=== PATIENT | male | born 1955 | race Caucasian/White ===

== ENCOUNTER 2020-04-08 07:47 | Outpatient (CLI) | payer MEDICARE, SELFPAY ==
--- NOTE | 2020-04-08 | ECHO_ITS ---
Patient Info Name: Ad Eisenberg Age: 64 years : 1955 Gender: Male Ht: 70 in Wt: 180 lbs BSA: 2.02 m2 HR: 120 bpm BP: 152 / 92 mmHg Heart Rhythm: Tachycardia Technical Quality: Good Exam Date: 04/08/2020 8:26 AM Exam Location: [facility] Patient Status: Outpatient Admit Date: 04/08/2020 Staff Ordering Physician: Patricio, Gaby CABALLERO Studio Potter: Liborio Bautista RDCS, RT Attending Provider: Patricio, Gaby CABALLERO Referring Physician: Patricio PALACIO; Exam Type: CA echo doppler color flow Study Info Indications I47.2 - Ventricular tachycardia Complete two-dimensional, color flow and Doppler transthoracic echocardiogram is performed. Strain analysis performed. Summary 1. Technically difficult study with limited views. Regional wall motion assessment limited due to poor endomyocardial border definition in several views. Consider repeat study with definity contrast enhancement. 2. Left ventricular systolic function is moderately reduced, estimated at 35-40%. 3. There is mildly increased left ventricular wall thickness. 4. Hypokinesis of the apical lateral wall. 5. The left ventricular diastolic function is indeterminate. 6. Unable to estimate PA systolic pressure due to poor spectral resolution of tricuspid regurgitant jet velocity. Left Ventricle Left ventricular chamber dimension is normal. Left ventricular systolic function is moderately reduced, estimated at 35-40%. There is mildly increased left ventricular wall thickness. The left ventricular diastolic function is indeterminate. Global longitudinal strain is moderately elevated at -10 %. Hypokinesis of the apical lateral wall. Right Ventricle Right ventricular chamber dimension is normal. Right ventricular systolic function is normal. Left Atria Left atrial chamber dimension is normal. Right Atria Right atrial chamber dimension is normal. Aortic Valve The aortic valve is not well visualized. There is no aortic valve stenosis. There is no aortic valve regurgitation. Pulmonic Valve The pulmonic valve is not well visualized. Mitral Valve The mitral valve has normal leaflets. There is trace mitral valve regurgitation. Tricuspid Valve The tricuspid valve leaflets are not well visualized. There is trace tricuspid valve regurgitation. Unable to estimate PA systolic pressure due to poor spectral resolution of tricuspid regurgitant jet velocity. Pericardium/Pleural The pericardium appears normal. There is no pericardial effusion. Inferior Vena Cava Normal inferior vena cava with >50% collapse upon inspiration consistent with normal right atrial pressure, 5 mmHg. Aorta The aortic root size at the sinus of Valsalva is normal. Left Ventricular Outflow Tract Name Value Normal LVOT 2D LVOT Diameter 2.4 cm LVOT Doppler LVOT Peak Gradient 3 mmHg LVOT Mean Gradient 2 mmHg LVOT VTI 14 cm LVOT VTI/AV VTI Ratio 0.9 LVOT Stroke Volume 64 ml
== END 2020-04-08 07:48 | disposition home or self-care (01) ==
PROVIDERS: PCP Nurse Practitioner Family; Visit Provider Nurse Practitioner Family
DX: R00.0 Tachycardia, unspecified (principal)
CPT/HCPCS: 93306

== ENCOUNTER 2022-04-19 00:56 | Day surgery (SDC) | payer MEDICARE, SELFPAY ==
[2022-04-04 15:02] VITALS: BMI 26.5
[2022-04-19 08:08] VITALS: BP 149/74; PULSE 113; RESP 20; TEMP 36; O2SAT 93; BMI 26.1
[2022-04-19] MEDS: LACTATED RINGERS 1,000 ML 150 ML IV CONT (08:24)
--- NOTE | 2022-04-19 08:34 | WPDANESEPPF ---
Anes - Initial Pre Proc Eval Procedure: Operation Date: 04/19/22 09:15 Proposed Procedures p Esophagogastroduodenoscopy - Jeffrey Dowell MD Date/Time: 04/19/22 08:34 Surgeon: Jeffrey Dowell MD Pre Op Diagnosis: abnormal CT scan Patient Data Age: 66 Gender: M Height: 1.78 m Weight: 82.6 kg Last Vital Signs Temp 36.0 C L 04/19/22 08:08 Pulse 113 H 04/19/22 08:08 Resp 20 04/19/22 08:08 BP 149/74 H 04/19/22 08:08 Pulse Ox 93 04/19/22 08:08 O2 Del Method Room Air 04/19/22 08:08 Allergies Allergy/AdvReac Type Severity Reaction Status Date / Time No Known Allergies Allergy Unknown Verified 04/19/22 08:13 Home Medications Medication Instructions Recorded Confirmed Type aspirin 81 mg capsule 81 mg PO DAILY 03/24/22 04/19/22 History budesonide-formoterol HFA 80 2 puff inhalation Q12H 03/24/22 04/19/22 History mcg-4.5 mcg/actuation aerosol inhaler (Symbicort) carvedilol 6.25 mg tablet 6.25 mg PO Q12H 03/24/22 04/19/22 History furosemide 20 mg tablet 20 mg PO QAM 03/24/22 04/19/22 History lisinopril 10 mg tablet 10 mg PO DAILY 03/24/22 04/19/22 History rosuvastatin 20 mg tablet 20 mg PO DAILY 03/24/22 04/19/22 History albuterol sulfate 90 mcg/actuation 1 puff inhalation Q6H PRN 04/04/22 04/19/22 History aerosol inhaler Shortness Of Breath tiotropium bromide 2.5 1 inh inhalation DAILY 04/04/22 04/19/22 History mcg/actuation mist for inhalation (Spiriva Respimat) Patient hx anesthesia problems: none Family hx anesthesia problems: none Results Review: All pre-operative results and documents have been reviewed as part of the pre-operative evaluation. [facility] Past Medical History Medical History Bile duct abnormality Colon cancer screening COPD (chronic obstructive pulmonary disease) Coronary artery disease Stroke Tobacco dependence Social History Social History Smoking packs per day: 1 Smoking cigarettes per day: 20.0 Years smoked: 50 Smoking pack-years: 50.00 Smoking status: Current every day smoker Tobacco type: cigarettes Alcohol intake: never Substance use: never Substance use type: does not use Living arrangements: with family Spiritual care concerns: No Anes - Eval Final PreProcedure Day of Procedure 04/19/22 08:34 Patient weight: overweight Heart: regular rate and rhythm Lungs: decreased breath sounds and wheezes Airway: Mallampati scale class II Neurological: alert and oriented Last oral intake: >/= 8 hours ASA classification: IV Emergent: no Anesthetic plan: proceed Anesthesia type and monitoring: general GIVS and standard monitoring Results Review: All pre-operative results and documents have been reviewed as part of the pre-operative evaluation. Informed Consent: The patient's anesthetic plan and its attendant risks and benefits were discussed with the patient/family/POA. Questions were solicited and answers provided to the satisfaction of the patient/family/POA.
--- NOTE | 2022-04-19 09:33 | WPDHPUPDATE1 ---
History and Physical Update Update Date/Time: 04/19/22 09:33 History and Physical has been reviewed, including an updated exam of the patient. There are NO changes in the patient's condition. Risks, benefits, and alternatives have been discussed and questions answered. Patient agrees to proceed with procedure.
[2022-04-19 09:54] VITALS: BP 121/75; PULSE 94; RESP 18; O2SAT 94
[2022-04-19 10:04] VITALS: BP 138/91; PULSE 91; RESP 19; O2SAT 94
[2022-04-19 10:14] VITALS: BP 142/82; PULSE 90; RESP 15; O2SAT 95
== END 2022-04-19 10:23 | disposition home or self-care (01) ==
PROVIDERS: PCP Nurse Practitioner Family; Visit Provider Internal Medicine Gastroenterology
PROC: 0DJ08ZZ Inspection of Upper Intestinal Tract, Via Natural or Artificial Opening Endoscopic (ICD-10-PCS; CPT 43235; principal; 2022-04-19 09:15)
DX: K29.70 Gastritis, unspecified, without bleeding (principal); J44.9 Chronic obstructive pulmonary disease, unspecified; I25.10 Atherosclerotic heart disease of native coronary artery without angina pectoris; Z86.73 Personal history of transient ischemic attack (TIA), and cerebral infarction without residual deficits; F17.210 Nicotine dependence, cigarettes, uncomplicated; Z79.82 Long term (current) use of aspirin; Z79.51 Long term (current) use of inhaled steroids
CPT/HCPCS: 43239; 88305; J2704; J7120

== ENCOUNTER 2022-08-30 08:52 | Inpatient (IN) | payer MEDICARE, SELFPAY ==
[2022-08-30] VITALS (29 sets, daily range): BP systolic 104–181; BP diastolic 54–82; PULSE 102–132; RESP 13–27; TEMP 36.8–37.5; O2SAT 91–100
--- NOTE | ~2022-08-30 | XR_ITS ---
EXAMINATION: XR chest 1V portable INDICATION: Hypoxia TECHNIQUE: Portable AP chest at 1214 hours COMPARISON: 03/21/2016; CT, 08/30/2022 FINDINGS: There is moderate emphysema. There are minimal airspace opacities of the lung bases. No ple ural effusion or pneumothorax. The cardiomediastinal silhouette is normal. The nasogastric tube is fo llowed as far as the stomach. Its tip is beyond the inferior margin of the radiograph. IMPRESSION: 1. Minimal bibasilar airspace opacity, consistent with atelectasis versus pneumonia. 2. Emphysema. Reviewed, dictated and finalized at location B. IMPRESSION: 1. Minimal bibasilar airspace opacity, consistent with atelectasis versus pneum onia. 2. Emphysema.
--- NOTE | ~2022-08-30 | XR_ITS ---
EXAMINATION: XR chest 1V portable INDICATION: Hypoxia TECHNIQUE: Portable AP chest at 0831 hours COMPARISON: 09/02/2022 FINDINGS: There is moderate emphysema. The nasogastric tube is partially withdrawn. Its tip is just b eyond the gastroesophageal junction. Bibasilar airspace opacities persist with slight increase. There are small pleural effusions. There is no pneumothorax. The cardiomediastinal silhouette is normal. IMPRESSION: 1. Bibasilar airspace opacities with slight increase, consistent with atelectasis versus pneumonia. 2. Small pleural effusions. 3. Partially retracted nasogastric tube with its tip just beyond the gastroesophageal junction. Tube could be safely advanced 8 to 10 cm which is recommended. Reviewed, dictated and finalized at location A. IMPRESSION: 1. Bibasilar airspace opacities with slight increase, consistent with atelectas is versus pneumonia. 2. Small pleural effusions. 3. Partially retracted nasogastric tube with its tip just beyond the gastroesop hageal junction. Tube could be safely advanced 8 to 10 cm which is recommended.
--- NOTE | ~2022-08-30 | XR_ITS ---
Supine and upright views of the abdomen Clinical history: Nausea and vomiting Findings: Multiple air distended small bowel loops are present, suspicious for at least partial small bowel obstruction. No free air evident. No abnormal mass lesion or calcification is seen. Osseous st ructures are intact. Impression: Findings suspicious for small bowel obstruction. Reviewed, dictated and finalized at [facility]. Impression: Findings suspicious for small bowel obstruction.
--- NOTE | ~2022-08-30 | XR_ITS ---
EXAMINATION: XR abdomen NG/feed tube insert INDICATION: Nasogastric tube insertion TECHNIQUE: Portable AP KUB-NG at 1212 hours COMPARISON: 0951 hours FINDINGS: The nasogastric tube is in the stomach. Again seen are multiple dilated loops of small hal l. There are minimal airspace opacities of the lung bases, consistent with atelectasis versus pneumon ia. IMPRESSION: 1. Nasogastric tube in the stomach. 2. Persistently dilated small bowel, consistent with ileus versus bowel obstruction. Reviewed, dictated and finalized at location B. IMPRESSION: 1. Nasogastric tube in the stomach. 2. Persistently dilated small bowel, consistent with ileus versus bowel obstruc tion.
--- NOTE | ~2022-08-30 | CT_ITS ---
EXAMINATION: CTA chest PE abdomen pel DATE: 08/30/2022 09:54 INDICATION: Shortness of breath and lower abdominal pain TECHNIQUE: Computed tomography angiography (CTA) of the chest was performed with 100 mL Omnipaque-350 intravenous contrast timed to evaluate the pulmonary arteries. Subsequent postcontrast images of the abdomen and pelvis are obtained. Coronal maximum intensity projection 3D-reconstructions were create d by the technologist. The dose-length product (DLP) was 1062.33 mGy-cm. Automated exposure control a nd iterative reconstruction technique were employed. COMPARISON: None. FINDINGS: CTA CHEST: The pulmonary arteries are well-opacified. No pulmonary embolism is identified. There is m oderate emphysema. The lungs are free of acute opacities. No pleural effusion or pneumothorax. There is mucous in the trachea. No pathologically enlarged thoracic lymph nodes are identified. The heart s ize is normal. There is calcified coronary artery atherosclerosis. There is mild thoracic spondylosis . There appears to be a small penetrating ulcer posteriorly in the distal descending thoracic aorta. ABDOMEN/PELVIS CT: Punctate calcifications in an otherwise normal spleen likely represent healed gran ulomatous disease. The liver, pancreas, gallbladder, and adrenal glands are normal. Cysts of the righ t kidney measure up to 5.9 cm. The left kidney is unremarkable. The dilated appendix measures up to 8 mm. There is an appendicolith in the base of the appendix. There is edematous stranding of the peria ppendiceal fat. A small amount of fluid surrounds the appendix. There is no evidence of perforation o r rim-enhancing periappendiceal fluid collection. Colonic diverticulosis is present without evidence of diverticulitis. IMPRESSION: 1. Acute appendicitis. 2. No pulmonary embolus. 3. Emphysema. 4. Possible penetrating ulcer posteriorly in the distal descending thoracic aorta. Reviewed, dictated and finalized at location L. IMPRESSION: 1. Acute appendicitis. 2. No pulmonary embolus. 3. Emphysema. 4. Possible penetrating ulcer posteriorly in the distal descending thoracic aor ta.
--- NOTE | 2022-08-30 09:10 | ECG_ITS ---
Measurements Intervals [place] Rate: 127 P: 70 CA: 153 QRS: 73 QRSD: 108 T: 65 QT: 272 QTc: 395 Interpretive Statements SINUS TACHYCARDIA LOW QRS VOLTAGE IN EXTREMITY LEADS [QRS DEFLECTION < 0.5 mV IN LIMB LEADS] ABNORMAL RHYTHM ECG NO PREVIOUS ECG AVAILABLE FOR COMPARISON Electronically Signed On 08-30-2022 13:55:25 CDT by Jeison Villalobos M.D.
--- NOTE | 2022-08-30 09:18 | ED.GENADULT ---
HPI - General Adult General Chief complaint: Abdominal Pain Stated complaint: ABD PAIN X DAYS Time Seen by Provider: 08/30/22 09:03 History of Present Illness HPI narrative: Ad Eisenberg is a 67 y/o male with a PMHx of COPD and CAD who presents today with reports of lower abdominal pain that started about 3 days ago. He reports he hasn't had a normal BM in about 4 days. Denies nausea/vomiting. He states that his pain became worse at around 0100 today. Denies fever/chills. Reports of some Shortness of breath but states it could be related to his COPD. He reports that he has been dribbling urine and feels like this is different from how he usually urinates. Denies chest pain. Location: abdomen Related Data Home Medications Medication Instructions Recorded Confirmed aspirin 81 mg capsule 81 mg PO DAILY 03/24/22 08/30/22 budesonide-formoterol HFA 80 2 puff inhalation Q12H 03/24/22 08/30/22 mcg-4.5 mcg/actuation aerosol inhaler (Symbicort) carvedilol 6.25 mg tablet 6.25 mg PO Q12H 03/24/22 08/30/22 furosemide 20 mg tablet 20 mg PO QAM 03/24/22 08/30/22 lisinopril 10 mg tablet 10 mg PO DAILY 03/24/22 08/30/22 rosuvastatin 20 mg tablet 20 mg PO DAILY 03/24/22 08/30/22 albuterol sulfate 90 mcg/actuation 1 puff inhalation Q6H PRN 04/04/22 08/30/22 aerosol inhaler Shortness Of Breath tiotropium bromide 2.5 1 inh inhalation DAILY 04/04/22 08/30/22 mcg/actuation mist for inhalation (Spiriva Respimat) Allergies Allergy/AdvReac Type Severity Reaction Status Date / Time No Known Allergies Allergy Unknown Verified 08/30/22 09:02 Review of Systems Review of Systems: CONSTITUTIONAL: Denies fever, chills, or sweats. EYES: Denies visual changes, redness, or discharge. ENT: Denies rhinorrhea, congestion, sore throat, or otalgia. CARDIOVASCULAR: Denies chest pain, palpitations, or edema. RESPIRATORY: Denies cough reports feeling short of breath GASTROINTESTINAL: Complains of lower abdominal pain for 3 days that became worse today at 0100, last normal BM was about 4 days ago, denies nausea vomiting GENITOURINARY: Denies dysuria or hematuria, reports he's been dribbling urine but that seems different SKIN: Denies rash or itching. MUSCULOSKELETAL: Denies back pain, joint pain, or myalgia. NEUROLOGIC: Denies headache, numbness, dizziness, or weakness. PSYCHIATRIC: Denies anxiety or depression. PMFSH Past Medical History Medical History Bile duct abnormality Colon cancer screening COPD (chronic obstructive pulmonary disease) Coronary artery disease Stroke Tobacco dependence Surgical History Surgical History H/O shoulder surgery Family History Family History Other No family history of disorders Social History Social History Smoking packs per day: 1 Smoking cigarettes per day: 20.0 Years smoked: 54 Smoking pack-years: 54.00 Smoking status: Current every day smoker Tobacco type: cigarettes Second hand tobacco smoke exposure: No Alcohol intake: never Substance use: never Substance use type: does not use Lack of Transportation: No Lack of Food: Never True Current Housing: I Have Housing Concerned About Future Housing: No Difficulty Paying Gas/Electric Bills: No Difficulty Paying for Meds: No Currently Unemployed: No Education: Trade/Vocational Certificate Difficulty w/ Childcare or Family Care: No Living arrangements: with family Spiritual care concerns: No Exam Narrative: GENERAL: Well-appearing, well-nourished, and in no acute distress. HEAD: Normocephalic, atraumatic. EYES: PERRLA and EOMI. ENT: Nares clear, no rhinorrhea or epistaxis. Mucous membranes moist. Oropharynx without tonsillar hypertrophy exudate or other lesions. NEC
[2022-08-30 09:22] LABS: Basophils Absolute Auto 0.1 K/mm3 (0.0-0.1); Basophils Percent Auto 0.4 % (0.2-1.2); Eosinophils Absolute Auto 0.1 K/mm3 (0-0.3); Eosinophils Percent Auto 0.5 % (0-4.4); Hemoglobin 15.2 g/dL (14.0-18.0); Immature Granulocyte Absolute 0.05 K/mm3 (0.00-0.031); Immature Granulocyte Percent A 0.4 % (0-0.5); Lymphocytes Absolute Auto 1.41 K/mm3 (0.9-3.2); Lymphocytes Percent Auto 11.9 % (18.3-44.2); Mean Corpuscular HGB Conc 32.3 g/dl (32-36); Mean Corpuscular Hemoglobin 30.4 pg (26-34); Mean Platelet Volume 9.9 fl (7.4-10.4); Monocytes Absolute Auto 0.9 K/mm3 (0.1-0.6); Monocytes Percent Auto 7.8 % (2.6-8.5); Neutrophils Absolute Auto 9.4 K/mm3 (1.3-6.7); Platelet Count Result 178 k/mm3 (150-375); Red Cell Distribution Width 14.4 % (11.5-14.5); White Blood Count 11.9 K/mm3 (4.5-10.0)
[2022-08-30] MEDS: IPRATROPIUM BR 0.02% INH SOLN 0.5 MG/2.5 ML VIAL INHALATION (09:25)
[2022-08-30] MEDS: ALBUTEROL SULFATE NEB 2.5 MG/3 ML INH INHALATION ×2 (09:25→15:04)
[2022-08-30 09:32] LABS: Alanine Aminotransferase 26 U/L (6-50); Albumin Level 4.3 g/dL (3.5-5.1); Alkaline Phosphatase 78 U/L (38-126); Anion Gap 6 mmol/L (8-16); Aspartate Amino Transferase 24 U/L (17-59); Bilirubin,Total 0.8 mg/dL (0.2-1.3); Blood Urea Nitrogen 18 mg/dL (9-20); Calcium 9.3 mg/dL (8.4-10.2); Carbon Dioxide 30 mmol/L (22-30); Chloride 98 mmol/L (98-107); Estimated CRCL calculation 96 ml/min; Estimated Glomerular Filt Rate > 60; Glucose 115 mg/dL (65-110); Lipase 31 U/L (23-300); Potassium 4.6 mmol/L (3.4-5.0); Sodium 134 mmol/L (137-145)
[2022-08-30 09:44] LABS: Troponin I < 0.012 ng/mL (0.000-0.034)
[2022-08-30] MEDS: FAMOTIDINE 20 MG/2 ML VIAL IV PUSH (09:53)
[2022-08-30] MEDS: DICYCLOMINE HCL INJ 20 MG/2 ML VIAL IM (09:53)
[2022-08-30] MEDS: carvediloL 6.25 MG TABLET PO ×2 (09:53→20:18)
[2022-08-30] MEDS: SODIUM CHLORIDE 0.9% IV 500 ML 250 ML IV CONT (09:54)
--- NOTE | 2022-08-30 10:00 | PC.NURSE ---
pt presents to the ER with c/c of abd pain due to constipation x1 day. pt is axox4, abc are wnl nad. ivf are infusing w/o difficulty. 18g IV LFA. airway is patent,spontaneous and self maintained. pt denies pain at this time
[2022-08-30 10:09] LABS: Lactic Acid Reflex 1.4 mmol/L (0.7-2.0)
[2022-08-30 10:25] LABS: Appearance Urine Clear (Clear); Bacteria Urine None Seen /hpf; Bilirubin Urine Negative (Negative); Color Urine Yellow (Yellow); Glucose Urine UA Negative (Negative); Ketones Urine Negative (Negative); Leukocyte Esterase Ur Negative LEU/UL (Negative); Nitrate Urine Negative (Negative); Non Pathogenic Casts 0-2; Protein Urine Negative (Negative); RBC Urine 0-2 /hpf (0-2); Squamous Epithelial Cell Urine None seen /hpf (Few); Urobilinogen Urine 0.2 mg/dL (<2.0); WBC Urine 0-5 /hpf; pH Urine 6.5 (5.0-9.0)
[2022-08-30 10:31] LABS: Specific Grav Ur 1.063 (1.001-1.035)
[2022-08-30 10:32] LABS: Add Urine Microscopic? YES
[2022-08-30] MEDS: PIPERACILLN/TAZ 3.375GM/NS50ML 3.375 GM/50 ML BAG IVPB ×2 (11:34→17:37)
--- NOTE | 2022-08-30 11:37 | PM.IMHP ---
H&P: HPI History of Present Illness Date/Time: 08/30/22 11:37 Chief Complaint: Lower abdominal pain Narrative: This is a 67-year-old man who presented to the emergency department with right lower quadrant abdominal pain that started about 3 days ago. He does explain some feelings like he had to have a bowel movement or was constipated, but was not able to get any relief. His pain has been localized to the lower abdomen since it started. He denies any fevers or chills. He denies any nausea or vomiting. He has never experienced anything like this in the past. He had 2 cups of coffee at 6 this morning and denies any solid food today. Review of Systems Review of Systems: All systems reviewed & are unremarkable except as noted in HPI and below Constitutional: Constitutional: Denies chills and Denies fever(s) Eyes: Eyes: Denies change in vision ENT: Denies hearing loss, Denies neck pain and Denies sore throat Cardiovascular: Cardiovascular: Denies chest pain and Denies dyspnea Respiratory: Respiratory: Denies cough, Denies dyspnea and Denies wheezing Gastrointestinal: Gastrointestinal: Reports as per HPI Genitourinary: Genitourinary: Denies hematuria and Denies dysuria Musculoskeletal: Musculoskeletal: Denies arthralgias, Denies joint swelling and Denies neck pain Allergic/Immunologic: Allergic/Immunologic: Denies wheezing [facility] Past Medical History Medical History (Updated 08/30/22 @ 11:42 by Lenard Sullivan DO) Bile duct abnormality Colon cancer screening COPD (chronic obstructive pulmonary disease) Coronary artery disease Stroke Tobacco dependence Surgical History Surgical History (Updated 08/30/22 @ 11:39 by Lenard Sullivan DO) H/O shoulder surgery Family History Family History (Updated 08/30/22 @ 11:40 by Lenard Sullivan DO) Other No family history of disorders Social History Social History Smoking packs per day: 1 Smoking cigarettes per day: 20.0 Years smoked: 50 Smoking pack-years: 50.00 Smoking status: Current every day smoker Tobacco type: cigarettes Alcohol intake: never Substance use: never Substance use type: does not use Living arrangements: with family Spiritual care concerns: No Meds Home Medications and Allergies Home Medications Medication Instructions Recorded Confirmed Type aspirin 81 mg capsule 81 mg PO DAILY 03/24/22 04/19/22 History budesonide-formoterol HFA 80 2 puff inhalation Q12H 03/24/22 04/19/22 History mcg-4.5 mcg/actuation aerosol inhaler (Symbicort) carvedilol 6.25 mg tablet 6.25 mg PO Q12H 03/24/22 04/19/22 History furosemide 20 mg tablet 20 mg PO QAM 03/24/22 04/19/22 History lisinopril 10 mg tablet 10 mg PO DAILY 03/24/22 04/19/22 History rosuvastatin 20 mg tablet 20 mg PO DAILY 03/24/22 04/19/22 History albuterol sulfate 90 mcg/actuation 1 puff inhalation Q6H PRN 04/04/22 04/19/22 History aerosol inhaler Shortness Of Breath tiotropium bromide 2.5 1 inh inhalation DAILY 04/04/22 04/19/22 History mcg/actuation mist for inhalation (Spiriva Respimat) Allergies Allergy/AdvReac Type Severity Reaction Status Date / Time No Known Allergies Allergy Unknown Verified 08/30/22 09:02 Vital Signs Vital Signs - 24 hr 08/30/22 08:59 08/30/22 09:06 08/30/22 09:25 Temperature 36.8 C Pulse Rate 132 H 130 H 123 H Respiratory Rate 18 20 16 Blood Pressure 132/78 181/82 H Pulse Oximetry 94 100 08/30/22 09:33 Temperature Pulse Rate 116 H Respiratory Rate 16 Blood Pressure Pulse Oximetry Exam Const: General: alert; No acute distress Orientation/consciousness: patient oriented x3 Limitations: no limitations HENMT: Head: normocephalic and atraumatic Ears: hearing grossly normal bilaterally Face/Nose/Sinus: Normal external nose present and Normal nares present Mouth: Yes Normal oral and palatal mucosa present and Yes moist m
--- NOTE | 2022-08-30 11:38 | PC.NURSE ---
This Rn didn't start atx.this rn just charted
--- NOTE | 2022-08-30 11:43 | WPDHPUPDATE1 ---
History and Physical Update Update Date/Time: 08/30/22 11:43 History and Physical has been reviewed, including an updated exam of the patient. There are NO changes in the patient's condition. Risks, benefits, and alternatives have been discussed and questions answered. Patient agrees to proceed with procedure.
--- NOTE | 2022-08-30 11:58 | PC.NURSE ---
Surgeon was at bedside. Pt denies pain at this time. vss and will continue to monitor. assessment unchanged
--- NOTE | 2022-08-30 14:54 | WPDANESEPPF ---
Anes - Initial Pre Proc Eval Procedure: Operation Date: 08/30/22 15:00 Proposed Procedures p Laparoscopic Appendectomy - Lenard Sullivan DO Date/Time: 08/30/22 14:54 Surgeon: Lenard Sullivan DO Pre Op Diagnosis: ABD PAIN X DAYS Patient Data Age: 67 Gender: M Height: 1.73 m Weight: 83 kg Last Vital Signs Temp 37.4 C 08/30/22 14:35 Pulse 128 H 08/30/22 14:35 Resp 18 08/30/22 14:35 BP 163/71 H 08/30/22 14:35 Pulse Ox 95 08/30/22 14:35 O2 Del Method Nasal Cannula 08/30/22 14:35 O2 Flow Rate 3 08/30/22 14:35 Allergies Allergy/AdvReac Type Severity Reaction Status Date / Time No Known Allergies Allergy Unknown Verified 08/30/22 09:02 Home Medications Medication Instructions Recorded Confirmed Type aspirin 81 mg capsule 81 mg PO DAILY 03/24/22 08/30/22 History budesonide-formoterol HFA 80 2 puff inhalation Q12H 03/24/22 08/30/22 History mcg-4.5 mcg/actuation aerosol inhaler (Symbicort) carvedilol 6.25 mg tablet 6.25 mg PO Q12H 03/24/22 08/30/22 History furosemide 20 mg tablet 20 mg PO QAM 03/24/22 08/30/22 History lisinopril 10 mg tablet 10 mg PO DAILY 03/24/22 08/30/22 History rosuvastatin 20 mg tablet 20 mg PO DAILY 03/24/22 08/30/22 History albuterol sulfate 90 mcg/actuation 1 puff inhalation Q6H PRN 04/04/22 08/30/22 History aerosol inhaler Shortness Of Breath tiotropium bromide 2.5 1 inh inhalation DAILY 04/04/22 08/30/22 History mcg/actuation mist for inhalation (Spiriva Respimat) Laboratory Tests 08/30/22 08/30/22 08/30/22 09:15 09:56 10:08 WBC 11.9 H K/mm3 (4.5-10.0) RBC 5.00 M/mm3 (4.6-6.20) Hgb 15.2 g/dL (14.0-18.0) Hct 47.0 % (42.0-52.0) MCV 94.0 fl (80-100) MCH 30.4 pg (26-34) MCHC 32.3 g/dl (32-36) RDW 14.4 % (11.5-14.5) Plt Count 178 k/mm3 (150-375) MPV 9.9 fl (7.4-10.4) Immature Gran % (Auto) 0.4 % (0-0.5) Neut % (Auto) 79.0 H % (45.5-73.1) Lymph % (Auto) 11.9 L % (18.3-44.2) [place] % (Auto) 7.8 % (2.6-8.5) Eos % (Auto) 0.5 % (0-4.4) Baso % (Auto) 0.4 % (0.2-1.2) Lymph # (Auto) 1.41 K/mm3 (0.9-3.2) [place] # (Auto) 0.9 H K/mm3 (0.1-0.6) Eos # (Auto) 0.1 K/mm3 (0-0.3) Baso # (Auto) 0.1 K/mm3 (0.0-0.1) Abs Immat Gran (auto) 0.05 H K/mm3 (0.00-0.031) Absolute Neuts (auto) 9.4 H K/mm3 (1.3-6.7) Absolute Nucleated RBC 0.0 K/mm3 (0.0-0.012) Nucleated RBC % 0.0 % (0.0-0.2) Sodium 134 L mmol/L (137-145) Potassium 4.6 mmol/L (3.4-5.0) Chloride 98 mmol/L (98-107) Carbon Dioxide 30 mmol/L (22-30) Anion Gap 6 L mmol/L (8-16) BUN 18 mg/dL (9-20) Creatinine 0.60 L mg/dL (0.7-1.3) Estim Creat Clear Calc 96 ml/min Estimated GFR > 60 (59 - ) Glucose 115 H mg/dL (65-110) Lactic Acid 1.4 mmol/L (0.7-2.0) Calcium 9.3 mg/dL (8.4-10.2) Total Bilirubin 0.8 mg/dL (0.2-1.3) AST 24 U/L (17-59) ALT 26 U/L (6-50) Alkaline Phosphatase 78 U/L (38-126) Troponin I < 0.012 ng/mL (0.000-0.034) Total Protein 8.0 g/dL (6.3-8.2) Albumin 4.3 g/dL (3.5-5.1) Lipase 31 U/L (23-300) Urine Color Yellow (Yellow) Urine Appearance Clear (Clear) Urine pH 6.5 (5.0-9.0) Ur Specific Broadbent 1.063 H (1.001-1.035) Urine Protein Negative mg/dL (Negative) Urine Glucose (UA) Negative mg/dL (Negative) Urine Ketones Negative mg/dL (Negative) Ur Blood (Man) Non-hemolyzed trace (Negative) Urine Nitrate Negative (Negative) Urine Bilirubin Negative (Negati
[2022-08-30] MEDS: BUPIVACAINE/EPINEPHRINE 0.5% 50 ML VIAL 30 ML INFILTRATE (15:47)
--- NOTE | 2022-08-30 16:17 | W.PM.PROC2 ---
Procedure Note - Detailed Date of Procedure 08/30/22 Pre-op Diagnosis Acute appendicitis Post-op Diagnosis Other (Acute perforated appendicitis) Procedure Performed 1. Laparoscopic appendectomy 2. Laparoscopic drainage of abdominal abscess Surgeon Lenard Sullivan, DO Anesthesia General and Local (0.5% bupivicaine with epinephrine) Indications This is a 67-year-old man who presented to the emergency department with right lower quadrant pain that started 3 days ago. He denies any fevers or chills. His pain has been constant in the region. He has never experienced like this in past. In the emergency department he was noted to have an elevated white blood count and CT showed evidence of acute appendicitis. Discussions were made with the patient about treatment options and decision was made to proceed with laparoscopic appendectomy, possible open. Findings Laparoscopic appendectomy was performed. The appendix appeared necrotic near the base and was perforated with an abscess between the appendix and terminal ileum. The abscess was drained using the suction assistant analyst and the appendix was carefully dissected free. The base of the appendix appeared healthy and viable. The appendix was removed and sent to the lab for pathology. Due to some of the purulence fluid from the abscess, decision was made to place a 19 round Nash drain within the pelvis and right lower quadrant. Description of Procedure Procedure as well as risks, benefits, and alternatives were explained to the patient. The patient agreed to proceed. Written consent was obtained and placed in chart prior to procedure. The patient was brought back to surgical suite. He was placed supine on operating table. Time-out was done to confirm the patient and procedure. The patient was then intubated by the Anesthesia Department. His abdomen was prepped and draped in sterile fashion using chlorhexidine prep. A 5 mm incision was made just to the left of the patient's umbilicus and a 5 mm Optiview trocar was advanced through the abdominal layers under direct visualization. Once inside the peritoneal cavity, carbon dioxide insufflation was used to create a pneumoperitoneum. The camera was inserted and the abdomen was inspected. No immediate abnormalities were identified. The patient was then placed in slight Trendelenburg position and rotated to the left. A 5 mm incision was made in the suprapubic region in midline and a 5 mm trocar was inserted under direct visualization. A 12 mm incision was made in the left lower quadrant and a 12 mm trocar was inserted under direct visualization. The right lower quadrant was carefully inspected. The cecum was identified and then this was traced back to the appendix. There was an abscess between the appendix and terminal ileum that was drained using a suction assistant analyst. The appendix was identified and grasped at the mesoappendix and lifted anteriorly. Careful blunt dissection was carried out at the base of the appendix through the mesoappendix using a [place] grasper. An Endo-ARNAUD 45 mm blue load stapler was then advanced across the base of the appendix and clamped and fired. A white reload was then clamped across the mesoappendix and fired. This freed up our appendix completely. It was then placed in an EndoCatch bag and removed through the left lower quadrant port. The staple lines were then inspected. Hemostasis appeared adequate and the staple lines appeared secure. The area was then irrigated with sterile saline. The pelvis was then carefully inspected and irrigated with sterile saline as well and the remainder of the abdomen was carefully inspected. The patient was then flattened out in bed. One final inspection was made around the abdominal cavity and no other abnormalities were seen. The left lower quadrant port was removed and a Vazquez-Adalberto cone was used to approximate the fascia with an 0 Vicryl simple interrupted suture. The remaining ports were
[2022-08-30] MEDS: LACTATED RINGERS 1,000 ML 30 ML IV CONT ×2 (16:22)
[2022-08-30] MEDS: ONDANSETRON INJ 4 MG/2 ML VIAL IV PUSH (16:38)
[2022-08-30] MEDS: fentaNYL CITRATE INJ (*CRX) 100 MCG/2 ML VIAL 25 MCG IV PUSH ×2 (16:49→16:55)
[2022-08-30] MEDS: METOPROLOL TARTRATE INJ 5 MG/5 ML VIAL IV PUSH (17:10)
--- NOTE | 2022-08-30 18:17 | ADMGEN ---
This patient, Ad Eisenberg, was admitted to -. Patient/family oriented to hospital policies and general routines including ID bracelet, bed and alarms, visiting hours, pain management, procedures, bathroom and other care routines, personal items, smoking policy, room service/diet, and visiting hours. Information on how to activate the Rapid Response Team has been discussed. Patient/Family are encouraged to report perceived risks to care and to ask questions if they do not understand what they are told or what they should do.
[2022-08-30] MEDS: LACTATED RINGERS 1,000 ML 100 ML IV CONT (19:06)
--- NOTE | 2022-08-30 20:55 | WPDCN ---
Assessment and Plan Assessment and plan (1) Acute appendicitis with localized peritonitis: Qualifiers: Appendicitis abscess presence: unspecified whether abscess present Appendicitis gangrene presence: unspecified whether gangrene present Appendicitis perforation presence: unspecified whether perforation present Qualified Code(s): K35.30 - Acute appendicitis with localized peritonitis, without perforation or gangrene Code(s): K35.30 - Acute appendicitis with localized peritonitis, without perforation or gangrene Status: Acute Assessment and Plan: Postoperative day 0 status post laparoscopic appendectomy and drainage of abdominal abscess. Wound care, pain control, drain management, and DVT prophylaxis deferred to primary service. Continue Zosyn, pending cultures. (2) Difficulty urinating: Code(s): R39.198 - Other difficulties with micturition Status: Acute Assessment and Plan: He has had difficulties urinating postoperatively. P.r.n. bladder scan and cath as needed. (3) Chronic obstructive pulmonary disease: Code(s): J44.9 - Chronic obstructive pulmonary disease, unspecified Status: Acute Assessment and Plan: No acute exacerbation. Continue maintenance inhalers. (4) Heart failure with reduced ejection fraction: Code(s): I50.20 - Unspecified systolic (congestive) heart failure Status: Acute Assessment and Plan: EF was 40% in March 2016. No issues since that time according to the patient. Appears euvolemic. Avoid over-hydration. (5) Tobacco dependence: Code(s): F17.200 - Nicotine dependence, unspecified, uncomplicated Status: Acute Assessment and Plan: Smoking cessation is encouraged and was discussed. He declines the need for nicotine patch. Plan Thank you for allowing us to participate in this patient's care. Please do not hesitate to contact us with any questions. Time spent on patient encounter: 55 minutes. [facility] Data of Consult Date/Time: 08/30/22 19:00 Requesting Physician: Lenard Sullivan DO Consult Narrative Reason for consult: Postoperative medical management. Narrative: This is a pleasant 67-year-old male smoker with history of stroke, decreased ejection fraction, hypertension, hyperlipidemia, and chronic obstructive pulmonary disease whom the hospitalist service has been consulted for help managing his medical conditions postoperatively. The patient presented to the emergency department this morning for evaluation of abdominal pain that has been going on for at least 2 to 3 days time. He initially thought he was constipated. At about 01:00 his symptoms acutely worsened and the pain settled in the lower abdomen. A imaging in the emergency department showed acute appendicitis and he was taken to the OR per Dr. Sullivan where he was found to have acute perforated appendicitis status post laparoscopic appendectomy and drainage of abdominal abscess. He has been started on Zosyn and was admitted to the medical floor postoperatively in stable condition. At the time of my evaluation he has mild discomfort in his abdominal muscles with movement but nothing significant. He has been unable to urinate more than a few drops since surgery. He does not typically have this problem home. He is not passing gas as of yet. He does not have much of an appetite but denies nausea. He also denies fever, chills, sweats, chest pain, shortness a breath, and vomiting. Review of Systems Review of Systems: Twelve systems were reviewed. No recent cold or flu symptoms. He had a stroke in March 2016 with mild residual right-sided hand weakness. He denies orthopnea, paroxysmal nocturnal dyspnea, and lower extremity edema. No history of DVT. Except as documented, all other systems were reviewed and are negative. [facility] Past Medical History Medical History Bile duct abn
[2022-08-31] VITALS (11 sets, daily range): BP systolic 114–146; BP diastolic 53–76; PULSE 84–117; RESP 16–18; TEMP 35.8–37; O2SAT 84–94
[2022-08-31] MEDS: PIPERACILLN/TAZ 3.375GM/NS50ML 3.375 GM/50 ML BAG IVPB ×4 (00:16→17:05)
[2022-08-31] MEDS: LACTATED RINGERS 1,000 ML 100 ML IV CONT (05:20)
[2022-08-31 06:43] LABS: Hematocrit 40.3 % (42.0-52.0); Hemoglobin 12.9 g/dL (14.0-18.0); Mean Corpuscular Hemoglobin 30.3 pg (26-34); Mean Corpuscular Volume 94.6 fl (80-100); Platelet Count Result 166 k/mm3 (150-375); Red Blood Count 4.26 M/mm3 (4.6-6.20); Red Cell Distribution Width 14.5 % (11.5-14.5); White Blood Count 9.7 K/mm3 (4.5-10.0)
[2022-08-31 06:55] LABS: Anion Gap 3 mmol/L (8-16); Blood Urea Nitrogen 11 mg/dL (9-20); Calcium 8.7 mg/dL (8.4-10.2); Carbon Dioxide 31 mmol/L (22-30); Chloride 102 mmol/L (98-107); Estimated CRCL calculation 93 ml/min; Estimated Glomerular Filt Rate > 60; Glucose 145 mg/dL (65-110); Potassium 4.5 mmol/L (3.4-5.0); Sodium 136 mmol/L (137-145)
[2022-08-31] MEDS: ROSUVASTATIN 10 MG TABLET 20 MG PO (08:55)
[2022-08-31] MEDS: FUROSEMIDE 20 MG TABLET PO (08:55)
[2022-08-31] MEDS: lisinopriL 10 MG TABLET PO (08:56)
[2022-08-31] MEDS: ASPIRIN 81 MG ENTERIC TABLET PO (08:56)
[2022-08-31] MEDS: carvediloL 6.25 MG TABLET PO ×2 (08:56→21:08)
[2022-08-31] MEDS: ENOXAPARIN 40 MG/0.4 ML SYRINGE SUB-Q (08:58)
[2022-08-31] MEDS: UMECLIDINIUM BROMIDE 62.5 MCG ELLIPTA 1 PUFF INHALATION (10:00)
[2022-08-31] MEDS: FLUTICASONE/SALMETEROL 45-21 MCG INHALER 1 PUFF 2 PUFF INHALATION ×2 (10:00→20:26)
--- NOTE | 2022-08-31 10:01 | WPDANESPN ---
Anes - Prog Note Post-Op Date/Time: 08/31/22 10:01 Cardiovascular status: normal Respiratory status: normal Airway patency: baseline Mental status: baseline Post-Op hydration status: normal Vital Signs: Last Vital Signs Temp 97.7 F 08/31/22 07:52 Pulse 95 08/31/22 08:56 Resp 16 08/31/22 07:52 BP 137/66 08/31/22 07:52 Pulse Ox 93 08/31/22 07:52 O2 Del Method Nasal Cannula 08/30/22 18:02 O2 Flow Rate 3 08/30/22 18:02 Pain Score (VAS): 0/10 I/O: Intake & Output 08/30/22 08/31/22 08/31/22 23:59 07:59 15:59 Intake Total 250 2450 240 Output Total 320 1300 10 Balance -70 1150 230 Laboratory Tests 08/31/22 06:21 08/31/22 06:21 08/30/22 08/30/22 08/31/22 09:56 10:08 06:21 WBC 9.7 RBC 4.26 L Hgb 12.9 L Hct 40.3 L MCV 94.6 MCH 30.3 MCHC 32.0 RDW 14.5 Plt Count 166 MPV 10.0 Sodium 136 L Potassium 4.5 Chloride 102 Carbon Dioxide 31 H Anion Gap 3 L BUN 11 D Creatinine 0.70 Estim Creat Clear Calc 93 Estimated GFR > 60 Glucose 145 H Lactic Acid 1.4 Calcium 8.7 Magnesium 2.0 Urine Color Yellow Urine Appearance Clear Urine pH 6.5 Ur Specific [place] 1.063 H Urine Protein Negative Urine Glucose (UA) Negative Urine Ketones Negative Ur Blood (Man) Non-hemolyzed trace Urine Nitrate Negative Urine Bilirubin Negative Urine Urobilinogen 0.2 Leukocyte Esterase Rfl Negative Urine RBC 0-2 Urine WBC 0-5 Ur Squamous Epith Cells None seen Urine Bacteria None seen Urine Casts 0-2 Post-procedural complaints: none Patient Feedback: Patient satisfied with anesthetic care.
--- NOTE | 2022-08-31 12:04 | PM.PNGS ---
Progress Note: A&P Assessment and Plan (1) Acute appendicitis with localized peritonitis: Qualifiers: Appendicitis abscess presence: with abscess Appendicitis gangrene presence: with gangrene Appendicitis perforation presence: with perforation Qualified Code(s): K35.33 - Acute appendicitis with perforation, localized peritonitis, and gangrene, with abscess Code(s): K35.30 - Acute appendicitis with localized peritonitis, without perforation or gangrene Status: Acute Assessment and Plan: Advance diet and stop IV fluids Continue Zosyn Monitor drain output Possibly home tomorrow (2) Chronic obstructive pulmonary disease: Code(s): J44.9 - Chronic obstructive pulmonary disease, unspecified Status: Acute (3) Heart failure with reduced ejection fraction: Code(s): I50.20 - Unspecified systolic (congestive) heart failure Status: Acute (4) Coronary artery disease: Code(s): I25.10 - Atherosclerotic heart disease of [place] coronary artery without angina pectoris Status: Acute (5) Tobacco dependence: Code(s): F17.200 - Nicotine dependence, unspecified, uncomplicated Status: Acute Subjective Subjective Date/Time Seen: 08/31/22 12:04 Interval history: Tolerating clears. Pain controlled. No fevers. Exam GI: Inspection: non-distended and other (GUILHERME serosanguinous) Objective Data Vital Signs Vital Signs: Vital Signs - 24 hr 08/30/22 13:41 08/30/22 14:35 08/30/22 15:05 Temperature 37.4 C Pulse Rate 110 H 128 H Respiratory Rate 20 18 18 Blood Pressure 125/72 163/71 H Pulse Oximetry 94 95 Oxygen Delivery Nasal Cannula Oxygen Flow Rate 3 08/30/22 15:13 08/30/22 16:22 08/30/22 16:35 Temperature 37.1 C Pulse Rate 106 H 120 H Respiratory Rate 18 13 20 Blood Pressure 126/72 128/56 L Pulse Oximetry 97 Oxygen Delivery Simple Face Mask Room Air Oxygen Flow Rate 8 08/30/22 16:50 08/30/22 17:05 08/30/22 17:10 Temperature Pulse Rate 123 H 120 H 120 H Respiratory Rate 20 20 Blood Pressure 112/58 L 112/58 L Pulse Oximetry 93 94 Oxygen Delivery Nasal Cannula Nasal Cannula Oxygen Flow Rate 3 2 08/30/22 17:20 08/30/22 17:35 08/30/22 17:50 Temperature Pulse Rate 104 H 102 H 109 H Respiratory Rate 20 20 20 Blood Pressure 104/54 L 119/55 L 112/56 L Pulse Oximetry 93 93 91 Oxygen Delivery Nasal Cannula Nasal Cannula Nasal Cannula Oxygen Flow Rate 3 3 3 08/30/22 18:02 08/30/22 18:10 08/30/22 18:25 Temperature 37.5 C 37.4 C Pulse Rate 105 H 109 H 108 H Respiratory Rate 20 18 18 Blood Pressure 112/72 124/61 125/66 Pulse Oximetry 93 91 92 Oxygen Delivery Nasal Cannula Oxygen Flow Rate 3 08/30/22 18:51 08/30/22 19:50 08/30/22 19:50 Temperature 36.8 C 36.2 C L 37.4 C Pulse Rate 106 H 64 109 H Respiratory Rate 16 16 16 Blood Pressure 119/69 116/56 L 134/64 Pulse Oximetry 94 97 92 Oxygen Delivery Oxygen Flow Rate 08/30/22 20:18 08/31/22 00:00 08/31/22 04:00 Temperature 36.1 C L 35.8 C L Pulse Rate 110 H 101 H 95 Respiratory Rate 16 16 Blood Pressure 120/56 L 119/61 Pulse Oximetry 92 94 Oxygen Delivery Oxygen Flow Rate 08/31/22 07:52 08/31/22 08:56 Temperature 36.5 C Pulse Rate 85 95 Respiratory Rate 16 Blood Pressure 137/66 Pulse Oximetry 93 Oxygen Delivery Oxygen Flow Rate Intake/Output Intake/Output: Intake & Output 08/28/22 08/29/22 08/30/22 08/31/22 23:59 23:59 23:59 23:59 Intake Total 300 2790 Output Total 320 1585 Balance -20 1205 Meds/Results Medications: Active Medications Generic Name Dose Route Start Last Admin Trade Name Freq PRN Reason Stop Dose Admin Acetaminophen 650 mg 08/30/22 18:07 Acetaminophen 325 Mg Tablet PO Q6H PRN Mild Pain (1-3) or Fever Hydrocodone Bitart/Acetaminophen 1 tab 08/30/22 18:07 Hydrocodone/Acetaminophen (*Crx) 5-325 Mg Tablet PO Q4H PRN Pain Rated 4-
--- NOTE | 2022-08-31 12:43 | WPDPN ---
Progress Note: A&P Assessment and Plan (1) Acute appendicitis with localized peritonitis: Qualifiers: Appendicitis gangrene presence: with gangrene Appendicitis perforation presence: with perforation Appendicitis abscess presence: with abscess Qualified Code(s): K35.33 - Acute appendicitis with perforation, localized peritonitis, and gangrene, with abscess Code(s): K35.30 - Acute appendicitis with localized peritonitis, without perforation or gangrene Status: Acute Assessment and Plan: Postoperative day 0 status post laparoscopic appendectomy and drainage of abdominal abscess. Wound care, pain control, drain management, and DVT prophylaxis deferred to primary service. Continue Zosyn, pending cultures. 08/31/2022 interval history: 67 y/o male presented with acure proforated appendicitis was seen by general surgeon and taken of OR POD #1, patient is on clear liquids, passing gas but no BM, denies any abdominal pain just sore, denies any n/V, patient will be seen by his surgeon and further recommendation to follow. (2) Difficulty urinating: Code(s): R39.198 - Other difficulties with micturition Status: Acute Assessment and Plan: He has had difficulties urinating postoperatively. P.r.n. bladder scan and cath as needed. (3) Chronic obstructive pulmonary disease: Code(s): J44.9 - Chronic obstructive pulmonary disease, unspecified Status: Acute Assessment and Plan: No acute exacerbation. Continue maintenance inhalers. (4) Heart failure with reduced ejection fraction: Code(s): I50.20 - Unspecified systolic (congestive) heart failure Status: Acute Assessment and Plan: EF was 40% in March 2016. No issues since that time according to the patient. Appears euvolemic. Avoid over-hydration. (5) Tobacco dependence: Code(s): F17.200 - Nicotine dependence, unspecified, uncomplicated Status: Acute Assessment and Plan: Smoking cessation is encouraged and was discussed. He declines the need for nicotine patch. Plan Thank you for allowing us to participate in this patient's care. Please do not hesitate to contact us with any questions. Time spent on patient encounter: 55 minutes. Subjective Date/time seen: 08/31/22 12:43 Interval history: Reason for consult: Postoperative medical management. HPI-Narrative: This is a pleasant 67-year-old male smoker with history of stroke, decreased ejection fraction, hypertension, hyperlipidemia, and chronic obstructive pulmonary disease whom the hospitalist service has been consulted for help managing his medical conditions postoperatively. The patient presented to the emergency department this morning for evaluation of abdominal pain that has been going on for at least 2 to 3 days time. He initially thought he was constipated. At about 01:00 his symptoms acutely worsened and the pain settled in the lower abdomen. A imaging in the emergency department showed acute appendicitis and he was taken to the OR per Dr. Sullivan where he was found to have acute perforated appendicitis status post laparoscopic appendectomy and drainage of abdominal abscess. He has been started on Zosyn and was admitted to the medical floor postoperatively in stable condition. At the time of my evaluation he has mild discomfort in his abdominal muscles with movement but nothing significant. He has been unable to urinate more than a few drops since surgery. He does not typically have this problem home. He is not passing gas as of yet. He does not have much of an appetite but denies nausea. He also denies fever, chills, sweats, chest pain, shortness a breath, and vomiting. 08/31/2022 interval history: 67 y/o male presented with acure proforated appendicitis was seen by general surgeon and taken of OR POD #1, patient is on clear liquids, passing gas but no BM, denies any abdominal pain just sore, denies any n/V, patient will be see
--- NOTE | 2022-08-31 14:45 | PCCCNOTE ---
On 08/31/22, the student, [Yajaira Bowman], provided care and completed [facility] documentation on this patient. I have reviewed the student's documentation and agree with the findings.
[2022-08-31] MEDS: BISACODYL 5 MG TABLET EC PO (21:07)
[2022-09-01] VITALS (12 sets, daily range): BP systolic 101–112; BP diastolic 56–75; PULSE 65–110; RESP 16–18; TEMP 35.9–36.8; O2SAT 84–96
[2022-09-01] MEDS: PIPERACILLN/TAZ 3.375GM/NS50ML 3.375 GM/50 ML BAG IVPB ×5 (00:20→23:26)
[2022-09-01 06:32] LABS: Hematocrit 44.9 % (42.0-52.0); Hemoglobin 14.6 g/dL (14.0-18.0); Mean Corpuscular HGB Conc 32.5 g/dl (32-36); Mean Corpuscular Hemoglobin 30.3 pg (26-34); Mean Corpuscular Volume 93.2 fl (80-100); Mean Platelet Volume 9.8 fl (7.4-10.4); Platelet Count Result 197 k/mm3 (150-375); Red Blood Count 4.82 M/mm3 (4.6-6.20); Red Cell Distribution Width 14.5 % (11.5-14.5); White Blood Count 10.4 K/mm3 (4.5-10.0)
[2022-09-01 06:42] LABS: Anion Gap 3 mmol/L (8-16); Blood Urea Nitrogen 18 mg/dL (9-20); Calcium 8.9 mg/dL (8.4-10.2); Carbon Dioxide 34 mmol/L (22-30); Chloride 99 mmol/L (98-107); Estimated CRCL calculation 74 ml/min; Estimated Glomerular Filt Rate > 60; Glucose 137 mg/dL (65-110); Magnesium 1.9 mg/dL (1.6-2.3); Potassium 4.2 mmol/L (3.4-5.0); Sodium 136 mmol/L (137-145)
[2022-09-01] MEDS: UMECLIDINIUM BROMIDE 62.5 MCG ELLIPTA 1 PUFF INHALATION (08:03)
[2022-09-01] MEDS: FLUTICASONE/SALMETEROL 45-21 MCG INHALER 1 PUFF 2 PUFF INHALATION ×2 (08:03→20:29)
[2022-09-01] MEDS: FUROSEMIDE 20 MG TABLET PO (08:39)
[2022-09-01] MEDS: ENOXAPARIN 40 MG/0.4 ML SYRINGE SUB-Q (08:39)
[2022-09-01] MEDS: ASPIRIN 81 MG ENTERIC TABLET PO (08:39)
[2022-09-01] MEDS: ROSUVASTATIN 10 MG TABLET 20 MG PO (08:39)
[2022-09-01] MEDS: lisinopriL 10 MG TABLET PO (08:39)
[2022-09-01] MEDS: carvediloL 6.25 MG TABLET PO ×2 (08:39→20:26)
[2022-09-01] MEDS: BISACODYL 10 MG SUPPOSITORY RECTAL (08:49)
[2022-09-01] MEDS: ONDANSETRON INJ 4 MG/2 ML VIAL IV PUSH ×2 (08:57→17:03)
--- NOTE | 2022-09-01 12:54 | PM.PNGS ---
Progress Note: A&P Assessment and Plan (1) Acute appendicitis with localized peritonitis: Qualifiers: Appendicitis gangrene presence: with gangrene Appendicitis perforation presence: with perforation Appendicitis abscess presence: with abscess Qualified Code(s): K35.33 - Acute appendicitis with perforation, localized peritonitis, and gangrene, with abscess Code(s): K35.30 - Acute appendicitis with localized peritonitis, without perforation or gangrene Status: Acute Assessment and Plan: Continue Zosyn Stimulate bowels Increase activity Might have to stay in hospital until ileus is resolving. (2) Postoperative ileus: Code(s): K91.89 - Other postprocedural complications and disorders of digestive system; K56.7 - Ileus, unspecified Status: Acute (3) Heart failure with reduced ejection fraction: Code(s): I50.20 - Unspecified systolic (congestive) heart failure Status: Acute (4) Chronic obstructive pulmonary disease: Code(s): J44.9 - Chronic obstructive pulmonary disease, unspecified Status: Acute (5) Coronary artery disease: Code(s): I25.10 - Atherosclerotic heart disease of [place] coronary artery without angina pectoris Status: Acute (6) Tobacco dependence: Code(s): F17.200 - Nicotine dependence, unspecified, uncomplicated Status: Acute Subjective Subjective Date/Time Seen: 09/01/22 12:54 Interval history: Patient bloated and a little nauseated. Not ambulating much yet. No fevers. No BM or Flatus yet. Nurse reports increased output from drain overnight. Exam GI: Inspection: distended, incision (intact with glue) and other (GUILHERME serous) GI Palp: Yes Soft to palpation and Yes Tenderness to palpation present (GI) (incisional) Auscultation: Hypoactive bowel sounds present Objective Data Vital Signs Vital Signs: Vital Signs - 24 hr 08/31/22 16:00 08/31/22 20:29 08/31/22 21:08 Temperature 36.2 C L Pulse Rate 86 117 H 102 H Respiratory Rate 16 18 Blood Pressure 114/53 L Pulse Oximetry 91 Oxygen Delivery Oxygen Flow Rate 08/31/22 21:30 08/31/22 20:00 08/31/22 20:05 Temperature 36.1 C L Pulse Rate 102 H Respiratory Rate 16 Blood Pressure 146/76 H Pulse Oximetry 90 84 L 92 Oxygen Delivery Room Air Nasal Cannula Oxygen Flow Rate 2 09/01/22 04:27 09/01/22 06:00 09/01/22 07:45 Temperature 35.9 C L Pulse Rate 85 Respiratory Rate 16 Blood Pressure 101/56 L 104/75 Pulse Oximetry 96 90 Oxygen Delivery Nasal Cannula Oxygen Flow Rate 1.5 09/01/22 08:02 09/01/22 08:39 09/01/22 08:00 Temperature Pulse Rate 104 H Respiratory Rate Blood Pressure Pulse Oximetry 93 90 Oxygen Delivery Nasal Cannula Nasal Cannula Oxygen Flow Rate 1.5 1.5 Intake/Output Intake/Output: Intake & Output 08/29/22 08/30/22 08/31/22 09/01/22 23:59 23:59 23:59 23:59 Intake Total 300 3620 150 Output Total 320 1895 610 Balance -20 1725 -474 Meds/Results Medications: Active Medications Generic Name Dose Route Start Last Admin Trade Name Freq PRN Reason Stop Dose Admin Acetaminophen 650 mg 08/30/22 18:07 Acetaminophen 325 Mg Tablet PO Q6H PRN Mild Pain (1-3) or Fever Hydrocodone Bitart/Acetaminophen 1 tab 08/30/22 18:07 Hydrocodone/Acetaminophen (*Crx) 5-325 Mg Tablet PO Q4H PRN Pain Rated 4-6 Hydrocodone Bitart/Acetaminophen 1 tab 08/30/22 18:07 Hydrocodone/Acetaminophen (*Crx) 7.5-325 Mg Tablet PO Q4H PRN Pain Rated 7-10 Albuterol 1 puff 08/30/22 18:07 Albuterol Sulfate (*Sp) Aerosol 1 Puff INHALATION Q6H PRN Shortness Of Breath Aspirin 81 mg 08/31/22 09:00 09/01/22 08:39 Aspirin 81 Mg Enteric Tablet PO 09/30/22 08:59 81 mg DAILY VALERIA Administration Bisacodyl 5 mg 08/31/22 20:17 08/31/22 21:07 Bisacodyl 5 Mg Tablet Ec PO 5 mg QAM PRN Administration Constipation Carv
--- NOTE | 2022-09-01 13:41 | WPDPN ---
Progress Note: A&P Assessment and Plan (1) Acute appendicitis with localized peritonitis: Qualifiers: Appendicitis gangrene presence: with gangrene Appendicitis perforation presence: with perforation Appendicitis abscess presence: with abscess Qualified Code(s): K35.33 - Acute appendicitis with perforation, localized peritonitis, and gangrene, with abscess Code(s): K35.30 - Acute appendicitis with localized peritonitis, without perforation or gangrene Status: Acute Assessment and Plan: Postoperative day 0 status post laparoscopic appendectomy and drainage of abdominal abscess. Wound care, pain control, drain management, and DVT prophylaxis deferred to primary service. Continue Zosyn, pending cultures. 09/01/2022 interval history: 67 y/o male presented with acute perforated appendicitis was seen by general surgeon and taken of OR POD #2, patient has developed postop cristiana, patient is on hear healthy diet. patient is not passing gas and no BM, denies any abdominal pain just sore, denies any n/V, patient will be seen by his surgeon recommended to continue current management, encourage patient to ambulate and increase activities, and further recommendation to follow. (2) Difficulty urinating: Code(s): R39.198 - Other difficulties with micturition Status: Acute Assessment and Plan: He has had difficulties urinating postoperatively. P.r.n. bladder scan and cath as needed. (3) Chronic obstructive pulmonary disease: Code(s): J44.9 - Chronic obstructive pulmonary disease, unspecified Status: Acute Assessment and Plan: No acute exacerbation. Continue maintenance inhalers. (4) Heart failure with reduced ejection fraction: Code(s): I50.20 - Unspecified systolic (congestive) heart failure Status: Acute Assessment and Plan: EF was 40% in March 2016. No issues since that time according to the patient. Appears euvolemic. Avoid over-hydration. (5) Tobacco dependence: Code(s): F17.200 - Nicotine dependence, unspecified, uncomplicated Status: Acute Assessment and Plan: Smoking cessation is encouraged and was discussed. He declines the need for nicotine patch. Plan Thank you for allowing us to participate in this patient's care. Please do not hesitate to contact us with any questions. Time spent on patient encounter: 55 minutes. Subjective Date/time seen: 09/01/22 13:41 Interval history: Reason for consult: Postoperative medical management. HPI-Narrative: This is a pleasant 67-year-old male smoker with history of stroke, decreased ejection fraction, hypertension, hyperlipidemia, and chronic obstructive pulmonary disease whom the hospitalist service has been consulted for help managing his medical conditions postoperatively. The patient presented to the emergency department this morning for evaluation of abdominal pain that has been going on for at least 2 to 3 days time. He initially thought he was constipated. At about 01:00 his symptoms acutely worsened and the pain settled in the lower abdomen. A imaging in the emergency department showed acute appendicitis and he was taken to the OR per Dr. Sullivan where he was found to have acute perforated appendicitis status post laparoscopic appendectomy and drainage of abdominal abscess. He has been started on Zosyn and was admitted to the medical floor postoperatively in stable condition. At the time of my evaluation he has mild discomfort in his abdominal muscles with movement but nothing significant. He has been unable to urinate more than a few drops since surgery. He does not typically have this problem home. He is not passing gas as of yet. He does not have much of an appetite but denies nausea. He also denies fever, chills, sweats, chest pain, shortness a breath, and vomiting. 09/01/2022 interval history: 67 y/o male presented with acute perforated appendicitis was seen by general surge
[2022-09-01] MEDS: ACETAMINOPHEN 325 MG TABLET 650 MG PO (17:03)
[2022-09-02] VITALS (11 sets, daily range): BP systolic 86–142; BP diastolic 52–64; PULSE 75–122; RESP 15–20; TEMP 36.3–36.8; O2SAT 85–95
[2022-09-02 06:07] LABS: Hematocrit 46.9 % (42.0-52.0); Hemoglobin 15.1 g/dL (14.0-18.0); Mean Corpuscular HGB Conc 32.2 g/dl (32-36); Mean Corpuscular Hemoglobin 30.4 pg (26-34); Mean Corpuscular Volume 94.4 fl (80-100); Mean Platelet Volume 9.7 fl (7.4-10.4); Platelet Count Result 214 k/mm3 (150-375); Red Blood Count 4.97 M/mm3 (4.6-6.20); Red Cell Distribution Width 14.6 % (11.5-14.5); White Blood Count 13.6 K/mm3 (4.5-10.0)
[2022-09-02] MEDS: PIPERACILLN/TAZ 3.375GM/NS50ML 3.375 GM/50 ML BAG IVPB ×3 (06:08→18:37)
[2022-09-02 06:23] LABS: Blood Urea Nitrogen 43 mg/dL (9-20); Calcium 9.2 mg/dL (8.4-10.2); Carbon Dioxide > 40 mmol/L (22-30); Chloride 91 mmol/L (98-107); Estimated CRCL calculation 34 ml/min; Estimated Glomerular Filt Rate 38; Glucose 133 mg/dL (65-110); Magnesium 2.3 mg/dL (1.6-2.3); Potassium 4.8 mmol/L (3.4-5.0); Sodium 137 mmol/L (137-145)
[2022-09-02] MEDS: FLUTICASONE/SALMETEROL 45-21 MCG INHALER 1 PUFF 2 PUFF INHALATION ×2 (06:55→20:32)
[2022-09-02] MEDS: UMECLIDINIUM BROMIDE 62.5 MCG ELLIPTA 1 PUFF INHALATION (06:55)
[2022-09-02] MEDS: ALBUTEROL SULFATE (*SP) AEROSOL 1 PUFF INHALATION (06:57)
--- NOTE | 2022-09-02 08:10 | PM.PNGS ---
Progress Note: A&P Assessment and Plan (1) Acute appendicitis with localized peritonitis: Qualifiers: Appendicitis gangrene presence: with gangrene Appendicitis perforation presence: with perforation Appendicitis abscess presence: with abscess Qualified Code(s): K35.33 - Acute appendicitis with perforation, localized peritonitis, and gangrene, with abscess Code(s): K35.30 - Acute appendicitis with localized peritonitis, without perforation or gangrene Status: Acute Assessment and Plan: Make NPO except ice chips KUB this AM Restart IV fluids and hold furosemide and lisinopril Await return of bowel function Continue Zosyn (2) Acute renal failure: Code(s): N17.9 - Acute kidney failure, unspecified Status: Acute (3) Postoperative ileus: Code(s): K91.89 - Other postprocedural complications and disorders of digestive system; K56.7 - Ileus, unspecified Status: Acute (4) Heart failure with reduced ejection fraction: Code(s): I50.20 - Unspecified systolic (congestive) heart failure Status: Acute (5) Chronic obstructive pulmonary disease: Code(s): J44.9 - Chronic obstructive pulmonary disease, unspecified Status: Acute (6) Coronary artery disease: Code(s): I25.10 - Atherosclerotic heart disease of [place] coronary artery without angina pectoris Status: Acute (7) Tobacco dependence: Code(s): F17.200 - Nicotine dependence, unspecified, uncomplicated Status: Acute Subjective Subjective Date/Time Seen: 09/02/22 08:10 Interval history: Vomited 3 times. A little less bloated. No flatus and only very minimal BM yesterday. Urinating very little and it is concentrated. Exam GI: Inspection: distended, incision (intact with glue) and other (GUILHERME serosanguinous) GI Palp: Yes Soft to palpation and Yes Tenderness to palpation present (GI) (incisional) Auscultation: Hypoactive bowel sounds present Objective Data Vital Signs Vital Signs: Vital Signs - 24 hr 09/01/22 08:39 09/01/22 14:00 09/01/22 20:00 Temperature 36.4 C L Pulse Rate 104 H 65 Respiratory Rate 18 Blood Pressure 108/60 Pulse Oximetry 93 93 Oxygen Delivery Nasal Cannula Oxygen Flow Rate 1.5 09/01/22 20:26 09/01/22 20:27 09/01/22 21:07 Temperature 36.8 C Pulse Rate 100 106 H 110 H Respiratory Rate 16 Blood Pressure 112/63 Pulse Oximetry 90 90 Oxygen Delivery Nasal Cannula Oxygen Flow Rate 1.5 09/01/22 23:43 09/01/22 23:43 09/02/22 06:49 Temperature Pulse Rate Respiratory Rate Blood Pressure Pulse Oximetry 84 L 90 86 L Oxygen Delivery Room Air Nasal Cannula Nasal Cannula Oxygen Flow Rate 3 5 09/02/22 06:00 09/02/22 07:52 09/02/22 06:55 Temperature 36.3 C L Pulse Rate 120 H 116 H 122 H Respiratory Rate 16 20 20 Blood Pressure 142/64 H Pulse Oximetry 92 90 Oxygen Delivery High Flow Nasal Cannula Oxygen Flow Rate 3 Intake/Output Intake/Output: Intake & Output 08/30/22 08/31/22 09/01/22 09/02/22 23:59 23:59 23:59 23:59 Intake Total 300 3620 250 450 Output Total 320 1895 665 400 Balance -20 1725 -415 50 Meds/Results Medications: Active Medications Generic Name Dose Route Start Last Admin Trade Name Freq PRN Reason Stop Dose Admin Acetaminophen 650 mg 08/30/22 18:07 09/01/22 17:03 Acetaminophen 325 Mg Tablet PO 650 mg Q6H PRN Administration Mild Pain (1-3) or Fever Hydrocodone Bitart/Acetaminophen 1 tab 08/30/22 18:07 Hydrocodone/Acetaminophen (*Crx) 5-325 Mg Tablet PO Q4H PRN Pain Rated 4-6 Hydrocodone Bitart/Acetaminophen 1 tab 08/30/22 18:07 Hydrocodone/Acetaminophen (*Crx) 7.5-325 Mg Tablet PO Q4H PRN Pain Rated 7-10 Albuterol 1 puff 08/30/22 18:07 09/02/22 06:57 Albuterol Sulfate (*Sp) Aerosol 1 Puff INHALATION 1 puff Q6H PRN Administration Shortness Of Breath Aspirin 81 mg 08/31/22 09:00 09/01
[2022-09-02] MEDS: ENOXAPARIN 40 MG/0.4 ML SYRINGE SUB-Q (08:17)
[2022-09-02] MEDS: carvediloL 6.25 MG TABLET PO ×2 (08:17→21:01)
[2022-09-02] MEDS: ASPIRIN 81 MG ENTERIC TABLET PO (08:17)
[2022-09-02] MEDS: ROSUVASTATIN 10 MG TABLET 20 MG PO (08:20)
[2022-09-02] MEDS: SODIUM CHLORIDE 0.9% IV 1,000 ML 100 ML IV CONT (08:23)
--- NOTE | 2022-09-02 17:33 | PM.IMPN ---
Progress Note: A&P Assessment and Plan (1) Acute appendicitis with localized peritonitis: Qualifiers: Appendicitis gangrene presence: with gangrene Appendicitis perforation presence: with perforation Appendicitis abscess presence: with abscess Qualified Code(s): K35.33 - Acute appendicitis with perforation, localized peritonitis, and gangrene, with abscess Code(s): K35.30 - Acute appendicitis with localized peritonitis, without perforation or gangrene Status: Acute Assessment and Plan: Postoperative day 0 status post laparoscopic appendectomy and drainage of abdominal abscess. Wound care, pain control, drain management, and DVT prophylaxis deferred to primary service. Continue Zosyn, pending cultures. 09/01/2022 interval history: 67 y/o male presented with acute perforated appendicitis was seen by general surgeon and taken of OR POD #2, patient has developed postop cristiana, patient is on hear healthy diet. patient is not passing gas and no BM, denies any abdominal pain just sore, denies any n/V, patient will be seen by his surgeon recommended to continue current management, encourage patient to ambulate and increase activities, and further recommendation to follow. (2) Difficulty urinating: Code(s): R39.198 - Other difficulties with micturition Status: Acute Assessment and Plan: He has had difficulties urinating postoperatively. P.r.n. bladder scan and cath as needed. -This is improved. Voiding per urinal now. (3) Chronic obstructive pulmonary disease: Code(s): J44.9 - Chronic obstructive pulmonary disease, unspecified Status: Acute Assessment and Plan: No acute exacerbation. Continue maintenance inhalers. -some expiratory wheezes throughout left lung field. PRN albuterol nebs ordered. -Patient is on 2 L NC at night time and occasionally uses oxygen during the day if he feels like it. Currently on 3 L NC here. Hoping that after we decompress his gut he will be able to take deeper breaths and use his IS appropriately. Today he is pulling 1000 ml but his abdomen is severly distended. (4) Heart failure with reduced ejection fraction: Code(s): I50.20 - Unspecified systolic (congestive) heart failure Status: Acute Assessment and Plan: EF was 40% in March 2016. No issues since that time according to the patient. Avoid over-hydration. -RY on am labs with ileus present. Started him on NS at 100 ml per hour. Will transition to D5 1/2 NS now that he is NPO. -trend Cr -replace lytes as needed. (5) Tobacco dependence: Code(s): F17.200 - Nicotine dependence, unspecified, uncomplicated Status: Acute Assessment and Plan: Smoking cessation is encouraged and was discussed. He declines the need for nicotine patch. Subjective Date/time seen: 09/02/22 17:33 Interval history: Reason for consult: Postoperative medical management. HPI-Narrative: This is a pleasant 67-year-old male smoker with history of stroke, decreased ejection fraction, hypertension, hyperlipidemia, and chronic obstructive pulmonary disease whom the hospitalist service has been consulted for help managing his medical conditions postoperatively. The patient presented to the emergency department this morning for evaluation of abdominal pain that has been going on for at least 2 to 3 days time. He initially thought he was constipated. At about 01:00 his symptoms acutely worsened and the pain settled in the lower abdomen. A imaging in the emergency department showed acute appendicitis and he was taken to the OR per Dr. Sullivan where he was found to have acute perforated appendicitis status post laparoscopic appendectomy and drainage of abdominal abscess. He has been started on Zosyn and was admitted to the medical floor postoperatively in stable condition. At the time of my evaluation he has mild discomfort in his abdominal muscles with movement but nothing significant. He has b
[2022-09-02] MEDS: DEXTROSE 5%/0.45% SOD CHL 1,000 ML 100 ML IV CONT (18:38)
[2022-09-03] VITALS (10 sets, daily range): BP systolic 86–107; BP diastolic 49–60; PULSE 72–111; RESP 14–20; TEMP 36.3–37.1; O2SAT 89–95
[2022-09-03] MEDS: PIPERACILLN/TAZ 3.375GM/NS50ML 3.375 GM/50 ML BAG IVPB ×4 (00:15→16:54)
[2022-09-03] MEDS: DEXTROSE 5%/0.45% SOD CHL 1,000 ML 100 ML IV CONT (05:57)
[2022-09-03 06:03] LABS: Basophils Absolute Auto 0.1 K/mm3 (0.0-0.1); Basophils Percent Auto 0.4 % (0.2-1.2); Eosinophils Absolute Auto 0.1 K/mm3 (0-0.3); Eosinophils Percent Auto 1.2 % (0-4.4); Hematocrit 41.7 % (42.0-52.0); Hemoglobin 13.7 g/dL (14.0-18.0); Immature Granulocyte Absolute 0.05 K/mm3 (0.00-0.031); Immature Granulocyte Percent A 0.4 % (0-0.5); Lymphocytes Absolute Auto 1.82 K/mm3 (0.9-3.2); Lymphocytes Percent Auto 15.2 % (18.3-44.2); Mean Corpuscular HGB Conc 32.9 g/dl (32-36); Mean Corpuscular Hemoglobin 30.8 pg (26-34); Mean Corpuscular Volume 93.7 fl (80-100); Mean Platelet Volume 9.6 fl (7.4-10.4); Monocytes Absolute Auto 1.2 K/mm3 (0.1-0.6); Neutrophils Absolute Auto 8.7 K/mm3 (1.3-6.7); Neutrophils Percent Auto 72.8 % (45.5-73.1); Platelet Count Result 209 k/mm3 (150-375); Red Blood Count 4.45 M/mm3 (4.6-6.20); Red Cell Distribution Width 14.5 % (11.5-14.5)
[2022-09-03 06:19] LABS: Alanine Aminotransferase 32 U/L (6-50); Albumin Level 3.4 g/dL (3.5-5.1); Alkaline Phosphatase 56 U/L (38-126); Aspartate Amino Transferase 32 U/L (17-59); Bilirubin,Total 0.6 mg/dL (0.2-1.3); Blood Urea Nitrogen 56 mg/dL (9-20); Calcium 8.3 mg/dL (8.4-10.2); Carbon Dioxide > 40 mmol/L (22-30); Chloride 86 mmol/L (98-107); Estimated CRCL calculation 43 ml/min; Estimated Glomerular Filt Rate 50; Glucose 148 mg/dL (65-110); Magnesium 2.5 mg/dL (1.6-2.3); Phosphorus 4.9 mg/dL (2.5-4.5); Potassium 3.6 mmol/L (3.4-5.0); Sodium 136 mmol/L (137-145)
[2022-09-03] MEDS: LACTATED RINGERS 1,000 ML 999 ML IV CONT (07:08)
[2022-09-03] MEDS: POTASSIUM CHLORIDE INJ 40 MEQ in SODIUM CHLORIDE 0.9% IV 500 ML 130 MEQ IVPB (07:15)
[2022-09-03] MEDS: FLUTICASONE/SALMETEROL 45-21 MCG INHALER 1 PUFF 2 PUFF INHALATION ×2 (08:22→21:13)
[2022-09-03] MEDS: UMECLIDINIUM BROMIDE 62.5 MCG ELLIPTA 1 PUFF INHALATION (08:22)
[2022-09-03] MEDS: ENOXAPARIN 40 MG/0.4 ML SYRINGE SUB-Q (08:33)
[2022-09-03] MEDS: ROSUVASTATIN 10 MG TABLET 20 MG PO (08:33)
[2022-09-03] MEDS: ASPIRIN 81 MG ENTERIC TABLET PO (08:33)
[2022-09-03] MEDS: DEXTROSE 5%/LACTATED RINGERS 1,000 ML 125 ML IV CONT ×2 (08:36→16:54)
--- NOTE | 2022-09-03 09:27 | PM.IMPN ---
Progress Note: A&P Assessment and Plan (1) Acute appendicitis with localized peritonitis: Qualifiers: Appendicitis abscess presence: with abscess Appendicitis gangrene presence: with gangrene Appendicitis perforation presence: with perforation Qualified Code(s): K35.33 - Acute appendicitis with perforation, localized peritonitis, and gangrene, with abscess Code(s): K35.30 - Acute appendicitis with localized peritonitis, without perforation or gangrene Status: Acute Assessment and Plan: Postoperative day 0 status post laparoscopic appendectomy and drainage of abdominal abscess. Wound care, pain control, drain management, and DVT prophylaxis deferred to primary service. Continue Zosyn, pending cultures. 09/01/2022 interval history: 67 y/o male presented with acute perforated appendicitis was seen by general surgeon and taken of OR POD #2, patient has developed postop cristiana, patient is on hear healthy diet. patient is not passing gas and no BM, denies any abdominal pain just sore, denies any n/V, patient will be seen by his surgeon recommended to continue current management, encourage patient to ambulate and increase activities, and further recommendation to follow. 09/03: Patient seen this morning resting in bed with family present. States he had a decent night overnight no complaints of pain. NG put out 2800 mls over the last 24 hours. Color is dark brown with slight red tinge. He states that he is starting to pass gas now. And the distention in his stomach is much improved. His blood pressure overnight was running soft, 80s over 50s and slightly tachycardic in the 104 hours. I gave him an LR bolus this morning and increase his IV fluids to 125 mL an hour. His RY starting to resolve creatinine yesterday was 1.8, today it is 1.4. I talked to him today about the importance of being up in the chair during the day and walking to help stimulate return of bowel function. I encouraged him to call the nurse prior to ambulating so he can have assistance with managing his wires. He is ready to go home but I told him he still has to have his NG for potentially another day or 2. (2) Difficulty urinating: Code(s): R39.198 - Other difficulties with micturition Status: Acute Assessment and Plan: He has had difficulties urinating postoperatively. P.r.n. bladder scan and cath as needed. -This is improved. Voiding per urinal now. (3) Chronic obstructive pulmonary disease: Code(s): J44.9 - Chronic obstructive pulmonary disease, unspecified Status: Acute Assessment and Plan: No acute exacerbation. Continue maintenance inhalers. -some expiratory wheezes throughout left lung field. PRN albuterol nebs ordered. -Patient is on 2 L NC at night time and occasionally uses oxygen during the day if he feels like it. Currently on 3 L NC here. Hoping that after we decompress his gut he will be able to take deeper breaths and use his IS appropriately. -Encouraged use 10 x per hour. (4) Heart failure with reduced ejection fraction: Code(s): I50.20 - Unspecified systolic (congestive) heart failure Status: Acute Assessment and Plan: EF was 40% in March 2016. No issues since that time according to the patient. Avoid over-hydration. -RY on am labs with ileus present. Increased him on D5LR at 125 ml per hour. Will transition to D5LR now that he is NPO. -trend Cr 1.8-->1.4 today -K+ 3.6 on am labs with 2800 ml of NG output. Will give 40 meq of K+ in anticipation of depletion. -Holding his coreg and lisinopril due to low blood pressures. Will monitor and resume when appropraite. (5) Tobacco dependence: Code(s): F17.200 - Nicotine dependence, unspecified, uncomplicated Status: Acute Assessment and Plan: Smoking cessation is encouraged and was discussed. He declines the need for nicotine patch. Subjective Date/time seen: 09/03/22 09:27 Interval histor
--- NOTE | 2022-09-03 13:53 | PM.PNGS ---
Progress Note: A&P Assessment and Plan (1) Acute appendicitis with localized peritonitis: Qualifiers: Appendicitis gangrene presence: with gangrene Appendicitis perforation presence: with perforation Appendicitis abscess presence: with abscess Qualified Code(s): K35.33 - Acute appendicitis with perforation, localized peritonitis, and gangrene, with abscess Code(s): K35.30 - Acute appendicitis with localized peritonitis, without perforation or gangrene Status: Acute Assessment and Plan: Minimal GUILHERME output the last 2 days. Will plan to removed today. Will give Dulcolax suppository today. Await return of bowel function. Continue Zosyn. (2) Acute renal failure: Code(s): N17.9 - Acute kidney failure, unspecified Status: Acute Assessment and Plan: Creatinine slightly better this morning, but still fluid negative due to increased NG output. Agree with fluid bolus and increasing IV fluids to 125 at this time. Continue monitoring for any signs of fluid overload. (3) Postoperative ileus: Code(s): K91.89 - Other postprocedural complications and disorders of digestive system; K56.7 - Ileus, unspecified Status: Acute (4) Heart failure with reduced ejection fraction: Code(s): I50.20 - Unspecified systolic (congestive) heart failure Status: Acute (5) Chronic obstructive pulmonary disease: Code(s): J44.9 - Chronic obstructive pulmonary disease, unspecified Status: Acute (6) Coronary artery disease: Code(s): I25.10 - Atherosclerotic heart disease of [place] coronary artery without angina pectoris Status: Acute (7) Tobacco dependence: Code(s): F17.200 - Nicotine dependence, unspecified, uncomplicated Status: Acute Subjective Subjective Date/Time Seen: 09/03/22 13:53 Interval history: Passing a little flatus. No BM. Denies fevers, chest pain, or shortness of breath. Not having much abdominal pain. Exam GI: Inspection: non-distended, incision (intact with glue) and other (GUILHERME serosanguinous) GI Palp: Yes Soft to palpation and Yes Tenderness to palpation present (GI) (incisional) Auscultation: Hypoactive bowel sounds present Objective Data Vital Signs Vital Signs: Vital Signs - 24 hr 09/02/22 15:01 09/02/22 20:32 09/02/22 21:01 Temperature 36.8 C Pulse Rate 112 H 75 75 Respiratory Rate 20 16 Blood Pressure 98/52 L Pulse Oximetry 90 Oxygen Delivery Oxygen Flow Rate 09/02/22 21:40 09/03/22 00:29 09/02/22 20:00 Temperature 36.4 C 36.3 C L Pulse Rate 117 H 98 98 Respiratory Rate 15 16 16 Blood Pressure 86/58 L 107/60 Pulse Oximetry 85 L 95 95 Oxygen Delivery High Flow Nasal Cannula Oxygen Flow Rate 3 09/03/22 05:25 09/03/22 08:28 09/03/22 08:40 Temperature 37.1 C Pulse Rate 107 H 104 H Respiratory Rate 18 20 Blood Pressure 86/50 L Pulse Oximetry 93 90 94 Oxygen Delivery High Flow Nasal Cannula High Flow Nasal Cannula Oxygen Flow Rate 3 3 09/03/22 10:16 Temperature Pulse Rate Respiratory Rate Blood Pressure 101/55 L Pulse Oximetry Oxygen Delivery Oxygen Flow Rate Intake/Output Intake/Output: Intake & Output 08/31/22 09/01/22 09/02/22 09/03/22 23:59 23:59 23:59 23:59 Intake Total 3620 817 030 8688 Output Total 2440 321 0898 1170 Balance 5001 -206 -9276 230 Meds/Results Medications: Active Medications Generic Name Dose Route Start Last Admin Trade Name Freq PRN Reason Stop Dose Admin Acetaminophen 650 mg 08/30/22 18:07 09/01/22 17:03 Acetaminophen 325 Mg Tablet PO 650 mg Q6H PRN Administration Mild Pain (1-3) or Fever Hydrocodone Bitart/Acetaminophen 1 tab 08/30/22 18:07 Hydrocodone/Acetaminophen (*Crx) 5-325 Mg Tablet PO Q4H PRN Pain Rated 4-6 Hydrocodone Bitart/Acetaminophen 1 tab 08/30/22 18:07 Hydrocodone/Acetaminophen (*Crx) 7.5-325 Mg Tablet PO Q4H PRN Pain Rated 7-10 [place]
[2022-09-03] MEDS: BISACODYL 10 MG SUPPOSITORY RECTAL (14:51)
[2022-09-03 15:49] LABS: Blood Urea Nitrogen 41 mg/dL (9-20); Calcium 8.2 mg/dL (8.4-10.2); Carbon Dioxide > 40 mmol/L (22-30); Chloride 92 mmol/L (98-107); Estimated CRCL calculation 60 ml/min; Estimated Glomerular Filt Rate > 60; Glucose 139 mg/dL (65-110); Potassium 3.4 mmol/L (3.4-5.0); Sodium 137 mmol/L (137-145)
[2022-09-03] MEDS: PHENOL/SOD PHENO SPRAY CHERRY (*BKC) 1 SPRAY MUCOUS MEM (16:54)
[2022-09-04] VITALS (10 sets, daily range): BP systolic 96–122; BP diastolic 56–68; PULSE 91–124; RESP 14–20; TEMP 36.1–36.7; O2SAT 89–98
[2022-09-04] MEDS: PIPERACILLN/TAZ 3.375GM/NS50ML 3.375 GM/50 ML BAG IVPB ×4 (00:23→17:17)
[2022-09-04] MEDS: DEXTROSE 5%/LACTATED RINGERS 1,000 ML 125 ML IV CONT (05:53)
[2022-09-04 06:06] LABS: Hematocrit 40.7 % (42.0-52.0); Hemoglobin 12.9 g/dL (14.0-18.0); Mean Corpuscular HGB Conc 31.7 g/dl (32-36); Mean Corpuscular Hemoglobin 30.1 pg (26-34); Mean Corpuscular Volume 94.9 fl (80-100); Mean Platelet Volume 9.6 fl (7.4-10.4); Platelet Count Result 201 k/mm3 (150-375); Red Blood Count 4.29 M/mm3 (4.6-6.20); Red Cell Distribution Width 14.3 % (11.5-14.5); White Blood Count 8.8 K/mm3 (4.5-10.0)
[2022-09-04 06:20] LABS: Blood Urea Nitrogen 26 mg/dL (9-20); Calcium 8.4 mg/dL (8.4-10.2); Carbon Dioxide > 40 mmol/L (22-30); Chloride 92 mmol/L (98-107); Estimated CRCL calculation 66 ml/min; Estimated Glomerular Filt Rate > 60; Glucose 112 mg/dL (65-110); Magnesium 2.3 mg/dL (1.6-2.3); Potassium 3.3 mmol/L (3.4-5.0); Sodium 137 mmol/L (137-145)
--- NOTE | 2022-09-04 08:18 | PM.IMPN ---
Progress Note: A&P Assessment and Plan (1) Acute appendicitis with localized peritonitis: Qualifiers: Appendicitis abscess presence: with abscess Appendicitis gangrene presence: with gangrene Appendicitis perforation presence: with perforation Qualified Code(s): K35.33 - Acute appendicitis with perforation, localized peritonitis, and gangrene, with abscess Code(s): K35.30 - Acute appendicitis with localized peritonitis, without perforation or gangrene Status: Acute Assessment and Plan: Postoperative day 5 status post laparoscopic appendectomy and drainage of abdominal abscess. Wound care, pain control, drain management, and DVT prophylaxis deferred to primary service. Continue Zosyn. -WBC 8.8, afebrile -NG still in place. Less output overnight, 900 ml. (2) Difficulty urinating: Code(s): R39.198 - Other difficulties with micturition Status: Acute Assessment and Plan: He has had difficulties urinating postoperatively. P.r.n. bladder scan and cath as needed. -This is improved. Voiding per urinal now. (3) Chronic obstructive pulmonary disease: Code(s): J44.9 - Chronic obstructive pulmonary disease, unspecified Status: Acute Assessment and Plan: No acute exacerbation. Continue maintenance inhalers. -some expiratory wheezes throughout left lung field. PRN albuterol nebs ordered. -Patient is on 2 L NC at night time and occasionally uses oxygen during the day if he feels like it. Currently on 3 L NC here. ROBERTO CARLOS Puentes has tried to wean o2 but he drops to the low 80's. Will work with him on IS, ambulating, and sitting up in chair today so hopefully there will be more success with weaning. -Encouraged use 10 x per hour. -Desaturations charted overnight with patient on 3 L NC. Will obtain chest x-ray this am, shows atelectasis. (4) Heart failure with reduced ejection fraction: Code(s): I50.20 - Unspecified systolic (congestive) heart failure Status: Acute Assessment and Plan: EF was 40% in March 2016. No issues since that time according to the patient. Avoid over-hydration. -RY on am labs with ileus present. Increased him on D5LR at 125 ml per hour. Will transition to D5LR now that he is NPO. -trend Cr 1.8-->1.4-->0.90 today -K+ 3.3 on am labs with 2800 ml of NG output. Will give 40 meq of K+IVP x 2. -Holding his coreg and lisinopril due to low blood pressures. Will monitor and resume when appropriate. (5) Tobacco dependence: Code(s): F17.200 - Nicotine dependence, unspecified, uncomplicated Status: Acute Assessment and Plan: Smoking cessation is encouraged and was discussed. He declines the need for nicotine patch. Subjective Date/time seen: 09/04/22 08:18 Interval history: Reason for consult: Postoperative medical management. HPI-Narrative: This is a pleasant 67-year-old male smoker with history of stroke, decreased ejection fraction, hypertension, hyperlipidemia, and chronic obstructive pulmonary disease whom the hospitalist service has been consulted for help managing his medical conditions postoperatively. The patient presented to the emergency department this morning for evaluation of abdominal pain that has been going on for at least 2 to 3 days time. He initially thought he was constipated. At about 01:00 his symptoms acutely worsened and the pain settled in the lower abdomen. A imaging in the emergency department showed acute appendicitis and he was taken to the OR per Dr. Sullivan where he was found to have acute perforated appendicitis status post laparoscopic appendectomy and drainage of abdominal abscess. He has been started on Zosyn and was admitted to the medical floor postoperatively in stable condition. At the time of my evaluation he has mild discomfort in his abdominal muscles with movement but nothing significant. He has been unable to urinate more than a few drops since surgery. He does not typically have th
[2022-09-04] MEDS: ENOXAPARIN 40 MG/0.4 ML SYRINGE SUB-Q (08:34)
[2022-09-04] MEDS: ROSUVASTATIN 10 MG TABLET 20 MG PO (08:34)
[2022-09-04] MEDS: POTASSIUM CHLORIDE INJ 40 MEQ in SODIUM CHLORIDE 0.9% IV 500 ML 130 MEQ IVPB ×2 (08:57→14:34)
[2022-09-04] MEDS: UMECLIDINIUM BROMIDE 62.5 MCG ELLIPTA 1 PUFF INHALATION (09:07)
[2022-09-04] MEDS: FLUTICASONE/SALMETEROL 45-21 MCG INHALER 1 PUFF 2 PUFF INHALATION ×2 (09:08→20:40)
--- NOTE | 2022-09-04 14:22 | PM.PNGS ---
Progress Note: A&P Assessment and Plan (1) Acute appendicitis with localized peritonitis: Qualifiers: Appendicitis gangrene presence: with gangrene Appendicitis perforation presence: with perforation Appendicitis abscess presence: with abscess Qualified Code(s): K35.33 - Acute appendicitis with perforation, localized peritonitis, and gangrene, with abscess Code(s): K35.30 - Acute appendicitis with localized peritonitis, without perforation or gangrene Status: Acute Assessment and Plan: NG output decreasing. Passing flatus but no BM yet. Will give Dulcolax suppository and milk of magnesia per NG today. Await return of bowel function. Continue Zosyn. (2) Acute renal failure: Code(s): N17.9 - Acute kidney failure, unspecified Status: Acute Assessment and Plan: BUN and creatinine much improved. Will hopefully be able to remove NG and start clear liquids soon. Could start decreasing IV fluids once tolerating p.o. intake. (3) Postoperative ileus: Code(s): K91.89 - Other postprocedural complications and disorders of digestive system; K56.7 - Ileus, unspecified Status: Acute (4) Heart failure with reduced ejection fraction: Code(s): I50.20 - Unspecified systolic (congestive) heart failure Status: Acute (5) Chronic obstructive pulmonary disease: Code(s): J44.9 - Chronic obstructive pulmonary disease, unspecified Status: Acute (6) Coronary artery disease: Code(s): I25.10 - Atherosclerotic heart disease of [place] coronary artery without angina pectoris Status: Acute (7) Tobacco dependence: Code(s): F17.200 - Nicotine dependence, unspecified, uncomplicated Status: Acute Subjective Subjective Date/Time Seen: 09/04/22 14:22 Interval history: Passing flatus. No BM yet. Pain improving. Minimal bloating. Exam GI: Inspection: non-distended and incision (intact with glue) GI Palp: Yes Soft to palpation and Yes Tenderness to palpation present (GI) (incisional) Auscultation: Hypoactive bowel sounds present Objective Data Vital Signs Vital Signs: Vital Signs - 24 hr 09/03/22 14:37 09/03/22 16:00 09/03/22 20:00 Temperature 37.1 C Pulse Rate 72 Respiratory Rate 14 Blood Pressure 102/52 L 101/50 L Pulse Oximetry 90 92 Oxygen Delivery Nasal Cannula Oxygen Flow Rate 3 Fraction of Inspired Oxygen 09/03/22 20:00 09/03/22 21:18 09/04/22 00:00 Temperature 36.3 C L 36.3 C L Pulse Rate 111 H 110 H 101 H Respiratory Rate 18 20 16 Blood Pressure 105/49 L 96/59 L Pulse Oximetry 89 L 92 93 Oxygen Delivery Nasal Cannula Oxygen Flow Rate 3 Fraction of Inspired Oxygen 32 09/04/22 04:00 09/04/22 09:09 09/04/22 09:11 Temperature 36.2 C L Pulse Rate 93 113 H 113 H Respiratory Rate 18 20 20 Blood Pressure 101/57 L Pulse Oximetry 89 L 98 Oxygen Delivery Nasal Cannula Oxygen Flow Rate 3 Fraction of Inspired Oxygen 32 09/04/22 08:00 09/04/22 08:35 09/04/22 12:00 Temperature 36.1 C L 36.7 C Pulse Rate 91 92 Respiratory Rate 16 14 Blood Pressure 100/56 L 122/68 Pulse Oximetry 90 90 92 Oxygen Delivery Nasal Cannula Oxygen Flow Rate 3 Fraction of Inspired Oxygen Intake/Output Intake/Output: Intake & Output 09/01/22 09/02/22 09/03/22 09/04/22 23:59 23:59 23:59 23:59 Intake Total 907 765 7885 1220 Output Total [address] [place] [id number] [phone] 20 Meds/Results Medications: Active Medications Generic Name Dose Route Start Last Admin Trade Name Freq PRN Reason Stop Dose Admin Acetaminophen 650 mg 08/30/22 18:07 09/01/22 17:03 Acetaminophen 325 Mg Tablet PO 650 mg Q6H PRN Administration Mild Pain (1-3) or Fever Hydrocodone Bitart/Acetaminophen 1 tab 08/30/22 18:07 Hydrocodone/Acetaminophen (*Crx) 5-325 Mg Tablet PO Q4H PRN Pain Rated 4-6 Hydrocodone Bitart/Acetaminophen 1 tab 08/30/22 18:07 [place]
[2022-09-04] MEDS: BISACODYL 10 MG SUPPOSITORY RECTAL (14:35)
[2022-09-04] MEDS: MAGNESIUM HYDROXIDE SUSP 30 ML UDC FEED TUBE (14:35)
[2022-09-05] VITALS (10 sets, daily range): BP systolic 98–119; BP diastolic 51–65; PULSE 72–104; RESP 16–20; TEMP 35.8–36.9; O2SAT 90–99
[2022-09-05] MEDS: PIPERACILLN/TAZ 3.375GM/NS50ML 3.375 GM/50 ML BAG IVPB ×4 (00:05→17:23)
[2022-09-05] MEDS: DEXTROSE 5%/LACTATED RINGERS 1,000 ML 125 ML IV CONT ×2 (01:59→10:31)
[2022-09-05 06:41] LABS: Basophils Percent Auto 0.2 % (0.2-1.2); Eosinophils Absolute Auto 0.2 K/mm3 (0-0.3); Eosinophils Percent Auto 2.1 % (0-4.4); Hematocrit 39.2 % (42.0-52.0); Hemoglobin 12.2 g/dL (14.0-18.0); Immature Granulocyte Absolute 0.03 K/mm3 (0.00-0.031); Immature Granulocyte Percent A 0.4 % (0-0.5); Lymphocytes Absolute Auto 1.77 K/mm3 (0.9-3.2); Lymphocytes Percent Auto 21.8 % (18.3-44.2); Mean Corpuscular HGB Conc 31.1 g/dl (32-36); Mean Corpuscular Hemoglobin 29.8 pg (26-34); Mean Corpuscular Volume 95.8 fl (80-100); Mean Platelet Volume 9.7 fl (7.4-10.4); Monocytes Absolute Auto 0.7 K/mm3 (0.1-0.6); Monocytes Percent Auto 8.9 % (2.6-8.5); Neutrophils Absolute Auto 5.4 K/mm3 (1.3-6.7); Neutrophils Percent Auto 66.6 % (45.5-73.1); Platelet Count Result 211 k/mm3 (150-375); Red Blood Count 4.09 M/mm3 (4.6-6.20); Red Cell Distribution Width 14.3 % (11.5-14.5); White Blood Count 8.1 K/mm3 (4.5-10.0)
[2022-09-05 06:50] LABS: Alanine Aminotransferase 39 U/L (6-50); Alkaline Phosphatase 70 U/L (38-126); Anion Gap 3 mmol/L (8-16); Aspartate Amino Transferase 39 U/L (17-59); Bilirubin,Total 0.8 mg/dL (0.2-1.3); Blood Urea Nitrogen 17 mg/dL (9-20); Calcium 8.1 mg/dL (8.4-10.2); Carbon Dioxide 37 mmol/L (22-30); Chloride 97 mmol/L (98-107); Estimated CRCL calculation 83 ml/min; Estimated Glomerular Filt Rate > 60; Glucose 129 mg/dL (65-110); Magnesium 2.2 mg/dL (1.6-2.3); Potassium 3.5 mmol/L (3.4-5.0); Sodium 137 mmol/L (137-145)
--- NOTE | 2022-09-05 08:23 | PM.IMPN ---
Progress Note: A&P Assessment and Plan (1) Acute appendicitis with localized peritonitis: Qualifiers: Appendicitis abscess presence: with abscess Appendicitis gangrene presence: with gangrene Appendicitis perforation presence: with perforation Qualified Code(s): K35.33 - Acute appendicitis with perforation, localized peritonitis, and gangrene, with abscess Code(s): K35.30 - Acute appendicitis with localized peritonitis, without perforation or gangrene Status: Acute Assessment and Plan: Postoperative day 6 status post laparoscopic appendectomy and drainage of abdominal abscess. Wound care, pain control, drain management, and DVT prophylaxis deferred to primary service. Continue Zosyn. -WBC 8.8, afebrile -NG still in place. Output seems to be decreasing and he has now had a bowel movement. Will leave up to surgery if he wants to do a clamp trial today. Patient might also benefit from IV Reglan for bowel motility. (2) Difficulty urinating: Code(s): R39.198 - Other difficulties with micturition Status: Acute Assessment and Plan: He has had difficulties urinating postoperatively. P.r.n. bladder scan and cath as needed. -This is improved. Voiding per urinal now. (3) Chronic obstructive pulmonary disease: Code(s): J44.9 - Chronic obstructive pulmonary disease, unspecified Status: Acute Assessment and Plan: No acute exacerbation. Continue maintenance inhalers. -some expiratory wheezes throughout left lung field. PRN albuterol nebs ordered. -Patient is on 2 L NC at night time and occasionally uses oxygen during the day if he feels like it. Currently on 3 L NC here. ROBERTO CARLOS Puentes has tried to wean o2 but he drops to the low 80's. Will work with him on IS, ambulating, and sitting up in chair today so hopefully there will be more success with weaning. -Encouraged use 10 x per hour. -chest x-ray from yesterday shows atelectasis. (4) Heart failure with reduced ejection fraction: Code(s): I50.20 - Unspecified systolic (congestive) heart failure Status: Acute Assessment and Plan: EF was 40% in March 2016. No issues since that time according to the patient. Avoid over-hydration. -RY on am labs with ileus present. Increased him on D5LR at 125 ml per hour. Will transition to D5LR now that he is NPO. -trend Cr 1.8-->1.4-->0.90 today -K+ 3.3 on am labs with 2800 ml of NG output. Will give 40 meq of K+IVP x 2. -Blood pressure is still low so I'm holding lisinopril, however his heart rate is elevated despite adequate hydration and afebrile. Will re-start low dose beta isamar. (5) Tobacco dependence: Code(s): F17.200 - Nicotine dependence, unspecified, uncomplicated Status: Acute Assessment and Plan: Smoking cessation is encouraged and was discussed. He declines the need for nicotine patch. Subjective Date/time seen: 09/05/22 08:23 Interval history: Reason for consult: Postoperative medical management. HPI-Narrative: This is a pleasant 67-year-old male smoker with history of stroke, decreased ejection fraction, hypertension, hyperlipidemia, and chronic obstructive pulmonary disease whom the hospitalist service has been consulted for help managing his medical conditions postoperatively. The patient presented to the emergency department this morning for evaluation of abdominal pain that has been going on for at least 2 to 3 days time. He initially thought he was constipated. At about 01:00 his symptoms acutely worsened and the pain settled in the lower abdomen. A imaging in the emergency department showed acute appendicitis and he was taken to the OR per Dr. Sullivan where he was found to have acute perforated appendicitis status post laparoscopic appendectomy and drainage of abdominal abscess. He has been started on Zosyn and was admitted to the medical floor postoperatively in stable condition. At the time of my evaluation he has mild discomfo
[2022-09-05] MEDS: UMECLIDINIUM BROMIDE 62.5 MCG ELLIPTA 1 PUFF INHALATION (08:45)
[2022-09-05] MEDS: FLUTICASONE/SALMETEROL 45-21 MCG INHALER 1 PUFF 2 PUFF INHALATION ×2 (08:45→21:01)
[2022-09-05] MEDS: carvediloL 6.25 MG TABLET PO ×2 (09:06→21:10)
[2022-09-05] MEDS: ASPIRIN 81 MG ENTERIC TABLET PO (09:07)
[2022-09-05] MEDS: ROSUVASTATIN 10 MG TABLET 20 MG PO (09:07)
[2022-09-05] MEDS: ENOXAPARIN 40 MG/0.4 ML SYRINGE SUB-Q (09:07)
--- NOTE | 2022-09-05 15:06 | PM.PNGS ---
Progress Note: A&P Assessment and Plan (1) Acute appendicitis with localized peritonitis: Qualifiers: Appendicitis gangrene presence: with gangrene Appendicitis perforation presence: with perforation Appendicitis abscess presence: with abscess Qualified Code(s): K35.33 - Acute appendicitis with perforation, localized peritonitis, and gangrene, with abscess Code(s): K35.30 - Acute appendicitis with localized peritonitis, without perforation or gangrene Status: Acute Assessment and Plan: NG out this AM and on clears. Advance diet as tolerated Continue Zosyn. Possibly home tomorrow if improving and tolerating diet. (2) Acute renal failure: Code(s): N17.9 - Acute kidney failure, unspecified Status: Acute Assessment and Plan: BUN and creatinine normalized. Stop IV fluids. (3) Postoperative ileus: Code(s): K91.89 - Other postprocedural complications and disorders of digestive system; K56.7 - Ileus, unspecified Status: Acute (4) Heart failure with reduced ejection fraction: Code(s): I50.20 - Unspecified systolic (congestive) heart failure Status: Acute (5) Chronic obstructive pulmonary disease: Code(s): J44.9 - Chronic obstructive pulmonary disease, unspecified Status: Acute (6) Coronary artery disease: Code(s): I25.10 - Atherosclerotic heart disease of [place] coronary artery without angina pectoris Status: Acute (7) Tobacco dependence: Code(s): F17.200 - Nicotine dependence, unspecified, uncomplicated Status: Acute Subjective Subjective Date/Time Seen: 09/05/22 15:06 Interval history: Tolerating clear liquids. NG was clamped for breakfast and patient seemed to tolerate well. NG now removed. Pain controlled. Passing flatus and had a BM. Exam GI: Inspection: non-distended and incision (intact with glue) GI Palp: Yes Soft to palpation and Yes Tenderness to palpation present (GI) (incisional) Auscultation: Hypoactive bowel sounds present Objective Data Vital Signs Vital Signs: Vital Signs - 24 hr 09/04/22 16:00 09/04/22 19:44 09/04/22 20:40 Temperature 36.7 C 36.6 C Pulse Rate 107 H 124 H 104 H Respiratory Rate 18 18 18 Blood Pressure 104/67 105/65 Pulse Oximetry 90 94 Oxygen Delivery Oxygen Flow Rate 09/05/22 00:00 09/05/22 04:00 09/05/22 09:06 Temperature 36.8 C 36.4 C L Pulse Rate 104 H 103 H 72 Respiratory Rate 18 18 Blood Pressure 119/51 L 118/55 L Pulse Oximetry 92 93 Oxygen Delivery Oxygen Flow Rate 09/05/22 12:00 09/05/22 09:00 Temperature 35.8 C L Pulse Rate 90 Respiratory Rate 20 Blood Pressure 110/58 L Pulse Oximetry 94 99 Oxygen Delivery Nasal Cannula Oxygen Flow Rate 3 Intake/Output Intake/Output: Intake & Output 09/02/22 09/03/22 09/04/22 09/05/22 23:59 23:59 23:59 23:59 Intake Total 787 2450 3360 1218 Output Total 2986 2195 2700 900 Balance -2199 255 660 318 Meds/Results Medications: Active Medications Generic Name Dose Route Start Last Admin Trade Name Freq PRN Reason Stop Dose Admin Acetaminophen 650 mg 08/30/22 18:07 09/01/22 17:03 Acetaminophen 325 Mg Tablet PO 650 mg Q6H PRN Administration Mild Pain (1-3) or Fever Hydrocodone Bitart/Acetaminophen 1 tab 08/30/22 18:07 Hydrocodone/Acetaminophen (*Crx) 5-325 Mg Tablet PO Q4H PRN Pain Rated 4-6 Hydrocodone Bitart/Acetaminophen 1 tab 08/30/22 18:07 Hydrocodone/Acetaminophen (*Crx) 7.5-325 Mg Tablet PO Q4H PRN Pain Rated 7-10 Albuterol 1 puff 08/30/22 18:07 09/02/22 06:57 Albuterol Sulfate (*Sp) Aerosol 1 Puff INHALATION 1 puff Q6H PRN Administration Shortness Of Breath Aspirin 81 mg 08/31/22 09:00 09/05/22 09:07 Aspirin 81 Mg Enteric Tablet PO 09/30/22 08:59 81 mg DAILY VALERIA Administration Bisacodyl 5 mg 08/31/22 20:17 08/31/22 21:07 Bisacodyl 5 Mg Tablet Ec PO 5 mg QAM PRN
[2022-09-06] MEDS: PIPERACILLN/TAZ 3.375GM/NS50ML 3.375 GM/50 ML BAG IVPB ×2 (00:46→06:21)
[2022-09-06 04:00] VITALS: BP 124/63; PULSE 101; RESP 16; TEMP 36.5; O2SAT 93
[2022-09-06 06:27] LABS: Hematocrit 39.2 % (42.0-52.0); Hemoglobin 12.3 g/dL (14.0-18.0); Mean Corpuscular HGB Conc 31.4 g/dl (32-36); Mean Corpuscular Hemoglobin 30.1 pg (26-34); Mean Corpuscular Volume 95.8 fl (80-100); Mean Platelet Volume 9.3 fl (7.4-10.4); Platelet Count Result 198 k/mm3 (150-375); Red Blood Count 4.09 M/mm3 (4.6-6.20); Red Cell Distribution Width 14.1 % (11.5-14.5); White Blood Count 7.5 K/mm3 (4.5-10.0)
[2022-09-06 06:45] LABS: Anion Gap 5 mmol/L (8-16); Blood Urea Nitrogen 18 mg/dL (9-20); Calcium 7.9 mg/dL (8.4-10.2); Carbon Dioxide 31 mmol/L (22-30); Chloride 99 mmol/L (98-107); Estimated CRCL calculation 83 ml/min; Estimated Glomerular Filt Rate > 60; Glucose 97 mg/dL (65-110); Magnesium 2.1 mg/dL (1.6-2.3); Potassium 3.8 mmol/L (3.4-5.0); Sodium 135 mmol/L (137-145)
[2022-09-06 08:00] VITALS: BP 120/65; PULSE 94; RESP 18; TEMP 36.5; O2SAT 90; O2SAT 91
[2022-09-06 08:07] VITALS: PULSE 90; RESP 18; O2SAT 92
[2022-09-06] MEDS: FLUTICASONE/SALMETEROL 45-21 MCG INHALER 1 PUFF 2 PUFF INHALATION (08:07)
[2022-09-06] MEDS: UMECLIDINIUM BROMIDE 62.5 MCG ELLIPTA 1 PUFF INHALATION (08:07)
[2022-09-06] MEDS: ENOXAPARIN 40 MG/0.4 ML SYRINGE SUB-Q (08:46)
[2022-09-06 08:48] VITALS: PULSE 78
[2022-09-06] MEDS: ASPIRIN 81 MG ENTERIC TABLET PO (08:48)
[2022-09-06] MEDS: ROSUVASTATIN 10 MG TABLET 20 MG PO (08:48)
[2022-09-06] MEDS: carvediloL 6.25 MG TABLET PO (08:48)
--- NOTE | 2022-09-06 11:16 | PM.DS ---
DS: Admitting Diagnosis Discharge Date 09/06/2022 Admitting Diagnosis Acute appendicitis, coronary artery disease, COPD, tobacco dependence DS: Discharge Diagnosis Discharge Diagnosis (1) Acute appendicitis: Qualifiers: Acute appendicitis type: with generalized peritonitis Appendicitis gangrene presence: with gangrene Appendicitis perforation presence: with perforation Appendicitis abscess presence: with abscess Qualified Code(s): K35.21 - Acute appendicitis with generalized peritonitis, with abscess Code(s): K35.80 - Unspecified acute appendicitis Status: Acute (2) Postoperative ileus: Code(s): K91.89 - Other postprocedural complications and disorders of digestive system; K56.7 - Ileus, unspecified Status: Acute (3) Chronic obstructive pulmonary disease: Code(s): J44.9 - Chronic obstructive pulmonary disease, unspecified Status: Acute (4) Coronary artery disease: Code(s): I25.10 - Atherosclerotic heart disease of [place] coronary artery without angina pectoris Status: Acute (5) Tobacco dependence: Code(s): F17.200 - Nicotine dependence, unspecified, uncomplicated Status: Acute DS: Summary Hospital Course Reason for hospitalization: Acute appendicitis Hospital Course: This is a 67-year-old man who presented to the emergency department on 08/30/2022 with lower abdominal pain that started 3 days prior. He was noted to have leukocytosis and CT evidence of acute appendicitis. He was taken directly for surgery on 08/30/2022. He was found to have perforated appendicitis with abscess and a drain was placed at the time of surgery. Hospitalist was consulted for medical management of his multiple comorbidities postoperatively. On postop day 1 he was feeling better and GUILHERME drain appeared serosanguineous. He was continued on IV Zosyn postoperatively. On postop day 2 he began experiencing bloating, nausea, and vomiting. He was given a suppository to help stimulate bowels, but had little relief. NG tube was placed on postop day 3 for prolonged postoperative ileus. He was also showing signs of acute renal failure secondary to dehydration and vomiting. He was resuscitated with IV fluids and his furosemide and lisinopril were held. On postop day 4 his GUILHERME drain had had minimal output for 2 days and was therefore removed. His kidney function was gradually improving. On postop day 5 he was starting to have some return of bowel function but still had not had a bowel movement. His bowels were stimulated with milk of magnesia and a Dulcolax suppository. On postop day 6 the NG tube was removed and he was started on a clear liquid diet. This was gradually advanced over the next 24 hours. His bowels were moving and on postop day 7 he was tolerating a solid diet. He was discharged on 09/06/2022. Time spent discussing smoking cessation with patient: 3 to 10 minutes Status at Discharge Functional status at discharge: independent ambulation Overall status at discharge: patient is progressing back to baseline Time Spent with Patient Time attestation: Total time spent providing and/or coordinating discharge services: Time spent: Less than 30 minutes Exam GI: Inspection: non-distended and incision (Intact with glue) GI Palp: Yes Soft to palpation, No Tenderness to palpation present (GI) and No Guarding due to palpation present (GI) Auscultation: normal bowel sounds DS: Data Data Completed and Pending Completed studies during hospitalization: Pending at discharge 08/30/22 16:01 Surgical [PTH] Routine Labs on day of discharge: Labs from last 24 hours 09/06/22 06:19 WBC 7.5 RBC 4.09 L Hgb 12.3 L Hct 39.2 L MCV 95.8 MCH 30.1 MCHC 31.4 L RDW 14.1 Plt Count 198 MPV 9.3 Sodium 135 L Potassium 3.8 Chloride 99 Carbon Dioxide 31 H Anion Gap 5 L BUN 18 Creatinine 0.70 Estim Creat Clear Calc 83 Estimated GFR > 60 Glucose 97 Calcium
== END 2022-09-06 12:25 | disposition home or self-care (01) | DRG 339 ==
LOC: ANHED 11:13 → ANHSURGERY 11:25 → ANH3MEDSUR 18:23
PROVIDERS: Family Medicine; Nurse Practitioner Acute Care; Admitting Provider Surgery; Emergency Provider Nurse Practitioner Family; PCP Nurse Practitioner Family; Visit Provider Surgery
PROC: 0DTJ4ZZ Resection of Appendix, Percutaneous Endoscopic Approach (ICD-10-PCS; CPT 44970; principal; 2022-08-30 15:00)
DX: K35.21 Acute appendicitis with generalized peritonitis, with abscess (principal); I50.20 Unspecified systolic (congestive) heart failure; K91.89 Other postprocedural complications and disorders of digestive system; K56.7 Ileus, unspecified; N17.8 Other acute kidney failure; N99.0 Postprocedural (acute) (chronic) kidney failure; E86.0 Dehydration; J44.9 Chronic obstructive pulmonary disease, unspecified; I25.10 Atherosclerotic heart disease of native coronary artery without angina pectoris; F17.210 Nicotine dependence, cigarettes, uncomplicated; N99.89 Other postprocedural complications and disorders of genitourinary system; R39.198 Other difficulties with micturition; I69.331 Monoplegia of upper limb following cerebral infarction affecting right dominant side
CPT/HCPCS: 36415; 71045; 71275; 74018; 74177; 80048; 80053; 81001; 83605; 83690; 83735; 84100; 84484; 85025; 85027; 88304; 93005; 94640; 94667; 96361; 96365; 96375; 96376; 99285; A9270; J0330; J0500; J1100; J1650; J2405; J2543; J2704; J3010; J3480; J7030; J7040; J7120; J7121; Q9967

== ENCOUNTER 2024-04-16 10:01 | Outpatient (CLI) | payer MEDICARE, SELFPAY ==
--- NOTE | ~2024-04-16 | CT_ITS ---
CT Scan of the Chest without Contrast: Clinical Indication: Lung cancer screening, nicotine dependence Technique: Contiguous sections were acquired throughout the chest without intravenous contrast. Dose reduction technique was used on this scan by utilizing automated exposure control and iterative recon struction technique. The dose-length product (DLP) was 114.25 mGy-cm. COMPARISON: 08/30/2022 Findings: There is no evidence of any significant mediastinal, hilar or axillary lymphadenopathy. There are ext ensive atherosclerotic calcifications of the aorta and coronary arteries. There is no evidence of pleural or pericardial effusion. There is advanced emphysema. There is probable atelectasis or scarring in the peripheral left upper l obe. No discrete pulmonary nodule evident. Images through the upper abdomen reveal no abnormalities. Impression: Lung RADS 2: Benign appearance. 12 month follow-up screening CT advised. Advanced emphysema with probable atelectasis or scarring in the left upper lobe. Reviewed, dictated and finalized at [facility]. [employer] Impression: Lung RADS 2: Benign appearance. 12 month follow-up screening CT advised. Advanced emphysema with probable atelectasis or scarring in the left upper lobe .
[2024-04-16 10:58] VITALS: PULSE 93; O2SAT 90
[2024-04-16 10:59] VITALS: PULSE 99; O2SAT 83
[2024-04-16 11:00] VITALS: PULSE 83; O2SAT 86
[2024-04-16 11:03] VITALS: PULSE 102; O2SAT 85
--- OUTSIDE RECORDS SUMMARY | 2024-04-16 11:03 | XMS_ITS | CONTINUITY OF CARE DOCUMENT ---
Author Name matt, matt Address Unknown Organization [facility] Address [address] [facility] [address] [place] [address] Phone [phone] Care Team Providers Care Media Specialist Name Role Phone Rosanna LALA, Paris Frias Unavailable [phone] BENJIE NAVA-BC, ARELY Unavailable [phone] RADHA LALA, HARMEET Lawrence Unavailable PROBLEMS Condition Status Date Provider Notes Cardiology examination completed 2 - Paris Marte MD CHF - systolic active Paris Marte MD Cardiomyopathy active Paris Marte MD Tobacco abuse active Paris Marte MD Abnormal electrocardiogram active Paris Marte MD HTN essential active Paris Marte MD Hypercholesterolemia active Paris dunbar MD Abnormal cardiovascular stre ss test active Paris Marte MD Carotid artery stenosis - left active Cindi Marte MD CVA active Paris Marte MD Shortness of breath active Paris Marte MD PVC's active Paris Marte MD CAD active Paris Marte MD Preop cardiovasc. examination active Elie Marte MD Hypertriglyceridemia active Paris dunbar MD ENCOUNTERS Date Type Provider Location Encounter Diag nosis - In-person encounter Office Visit Paris Marte MD [facility] - In-person encounter Office Visit Paris Marte MD [facility] - In-person encounter Office Visit Paris Marte MD [facility] Hypertriglyceridemia - In-person encounter Office Visit Paris Marte MD [facility] Preop cardiovasc. examination - In-person encounter Office Visit Paris Marte MD [facility] - In-person encounter Office Visit Paris Marte MD [facility] - In-person encounter Office Visit Paris Marte MD [facility] PVC'sCAD - In-person encounter Office Visit Paris Marte MD [facility] - In-person encounter Office Visit Paris Marte MD [facility] - In-person encounter Office Visit Paris Marte MD [facility] Shortness of breath - In-person encounter Office Visit Paris Marte MD [facility] - In-person encounter Office Visit Paris Marte MD [facility] Cardiology examinationAbnormal cardiovascular stress testCarotid artery stenosis - leftCVA - In-person encounter Office Visit Paris Marte MD [facility] CHF - systolicCardiomyopathyTobacco abuseAbnormal electrocardiogramHTN essentialHypercholesterolemia VITAL SIGNS Date Observation Value Provider Body Mass Index (Ratio) 27.26 kg/m2 Minesh Ling blood pressure, diastolic 62 mm[Hg] Madeline Merritt blood pressure, systolic 109 mm[Hg] Josefina Merritt oxygen saturation, oximetry 87 % Rocio Merritt pulse rate 98 /min Rocio Merritt respiratory rate E&M 12 /min Rocio Merritt weight E&M 190 [lb_av] Rocio Merritt height E&M 70 [in_i] Rocio Merritt blood pressure, cuff size regular An adelia Merritt Body Mass Index (Ratio) 28.26 kg/m2 Lizandro Marte MD blood pressure, diastolic 71 mm[Hg] Li nkLogic blood pressure, systolic 114 mm[Hg] Betsy kLog blood pressure, cuff size regular Do nnell Errol blood pressure, diastolic 71 mm[Hg] Do ell Errol blood pressure, systolic 114 mm[Hg] Edgard cindy Errol oxygen saturation, oximetry 97 % [facility] 103 /[facility] weight E&M 197 [lb_av] Paul Errol height E&M 70 [in_i] Paul Errol Body Mass Index (Ratio) 27.40 kg/m2 Lizandro Marte MD blood pressure, cuff size regular Tanesha Guevara blood pressure, diastolic 84 mm[Hg] Tanesha Guevara blood pressure, systolic 140 mm[Hg] Tadeo Guevara oxygen saturation, oximetry 89 % Glory Guevara respiratory rate E&M 15 /min Glory harris pulse rate 116 /min Glory Guevara weight E&M 191 [lb_av] Glory Guevara height E&M 70 [in_i] Glory Guevara Body Mass Index (Ratio) 26.40 kg/m2 Lizandro Marte MD blood pressure, cuff size regular Ke rri Jorgegernejuanitaeldnnamdi blood pressure, diastolic 60 mm[Hg] Ke rri Jorgeuenejuanitaelder blood pressure, systolic 96 mm[Hg] Jason ri Jorgegermanjit oxygen saturation, oximetry 91 % Karyn Augusto respiratory rate E&M 14 /min Karyn Finn ruenejuanitaeldnnamdi pulse rate 103 /min Karyn Jorgegersyed fuentes weight E&M 184 [lb_av] Karyn Gail er height E&M 70 [in_i] Karyn Gail fuentes Body Mass Index (Ratio) 26.97 kg/m2 Lizandro Marte MD blood pressure, diastolic 82 mm[Hg] [facility] Merritt blood pressure, systolic 153 mm[Hg] Concetta Merritt oxygen saturation, oximetry 87 % Monica Merritt pulse rate 103 /min Monica Merritt respiratory rate E&M 18 /min Monica nevarez weight E&M 188 [lb_av] Monica Merritt height E&M 70 [in_i] Monica Merritt Body Mass Index (Ratio) 26.83 kg/m2 Lizandro Marte MD blood pressure, diastolic 76 mm[Hg] Li nkLogcodi blood pressure, systolic 131 mm[Hg] Betsy kLogic blood pressure, cuff size regular Ri azucena Golden blood pressure, diastolic 76 mm[Hg] Ri azucena Golden blood pressure, systolic 131 mm[Hg] Kailash jassi Golden oxygen saturation, oximetry 91 % Ana Golden respiratory rate E&M 14 /min Natanael Golden pulse rate 85 /min Ana arceo weight E&M 187 [lb_av] Ana Manuel son height E&M 70 [in_i] Ana arceo Body Mass Index (Ratio) 27.29 kg/m2 Lizandro Marte MD blood pressure, diastolic 66 mm[Hg] Li nkLogic blood pressure, systolic 146 mm[Hg] Betsy kLogic blood pressure, cuff size large Ta paul Van blood pressure, diastolic 66 mm[Hg] Ta paul Van blood pressure, systolic 146 mm[Hg] [facility] oxygen saturation, oximetry 90 % [facility] respiratory rate E&M 16 /min Kayla Van pulse rate 118 /min Kayla Aguanga weight E&M 190.2 [lb_av] Kayla Van height E&M 70 [in_i] Kayla Van Body Mass Index (Ratio) 27.26 kg/m2 Lizandro Marte MD blood pressure, diastolic -1 mm[Hg] Li nkLogic blood pressure, systolic 146 mm[Hg] Betsy kLogic blood pressure, diastolic 72 mm[Hg] Sa ra Corbin blood pressure, systolic 146 mm[Hg] Luis Eduardo a Corbin oxygen saturation, oximetry 92 % Peace Corbin respiratory rate E&M 17 /min Peace Si ms pulse rate 79 /min Peace Corbin weight E&M 190 [lb_av] Peace Corbin blood pressure, cuff size regular Sa ra Corbin height E&M 70 [in_i] Peace Corbin Body Mass Index (Ratio) 27.69 kg/m2 Lizandro Marte MD blood pressure, diastolic 70 mm[Hg] Jessica salmonLogcodi blood pressure, systolic 100 mm[Hg] Betsy Gauravog blood pressure, cuff size large Tr lennie Lynn blood pressure, diastolic 70 mm[Hg] Tr lennie Lynn blood pressure, systolic 100 mm[Hg] Try teofilo Lynn oxygen saturation, oximetry 92 % David Lynn respiratory rate E&M 18 /min David Lynn pulse rate 113 /min David Lynn weight E&M 193 [lb_av] David Lynn height E&M 70 [in_i] David Lynn Body Mass Index (Ratio) 27.72 kg/m2 Lizandro Marte MD blood pressure, diastolic 70 mm[Hg] Jessica luis antonioLogcodi blood pressure, systolic 144 mm[Hg] Betsy Gauravsierra [place] blood pressure, diastolic 70 mm[Hg] Zully Antonia Alfaro blood pressure, systolic 144 mm[Hg] Marie Alfaro oxygen saturation, oximetry 91 % Earnestine Alfaro respiratory rate E&M 16 /min Lesly Alfaro pulse rate 101 /min Earnestine flores weight E&M 193.2 [lb_av] Earnestine Gordon enal height E&M 70 [in_i] Earnestine Kole mark Body Mass Index (Ratio) 26.83 kg/m2 Lizandro Marte MD blood pressure, resting Yes [place] de leon O'Fabián blood pressure, diastolic 88 mm[Hg] Ma rsha O'Fabián blood pressure, systolic 140 mm[Hg] Marie sha O'Fabián oxygen saturation, oximetry 97 % Natalia O'Fabián respiratory rate E&M 16 /min Natalia O'Fabián pulse rate 90 /min Natalia O'Fabián weight E&M 187 [lb_av] Natalia O'Fabián height E&M 70 [in_i] Natalia O'Fabián Body Mass Index (Ratio) 26.25 kg/m2 Lizandro Marte MD pulse rate 102 /min Sophie Geebel l oxygen saturation, oximetry 94 % Sophielauren Waite blood pressure, cuff size regular Cy ntrachel Ravindra blood pressure, diastolic 80 mm[Hg] Cy ntrachel Waite blood pressure, systolic 170 mm[Hg] Suzanne lauren Waite respiratory rate E&M 16 /min Sophie Waite weight E&M 183 [lb_av] Sophie Geebel l height E&M 70 [in_i] Sophie Campbel l Body Mass Index (Ratio) 26.25 kg/m2 Lizandro Marte MD blood pressure, cuff size large Ke rri Sandeepnejose f blood pressure, diastolic 90 mm[Hg] Ke rri Jorgeuenenfelder blood pressure, systolic 162 mm[Hg] Jason ri Augusto oxygen saturation, oximetry 92 % Karyn Augusto respiratory rate E&M 16 /min Karyn G marieenejose f pulse rate 128 /min Karyn Gail lder weight E&M 183 [lb_av] Karyn Sandeepnejuanitae lder height E&M 70 [in_i] Karyn Gruenenfe lder Body Mass Index (Ratio) 26.54 kg/m2 Lizandro Marte MD blood pressure, resting No Cynt rachel Waite blood pressure, diastolic 97 mm[Hg] Khurram Waite blood pressure, systolic 167 mm[Hg] Suzanne Waite blood pressure, cuff size regular Khurram Waite pulse rate 113 /min Sophie jacques respiratory rate E&M 16 /min Sophie Waite oxygen saturation, oximetry 92 % Sophie Waite height E&M 70 [in_i] Sophie jacques weight E&M 185 [lb_av] Sophie jacques ALLERGIES No Known Drug Allergies RESULTS Date Observation Value Provider Reference Range Interpretation Location basophils as percent of blood leukocytes 0.6 % [facility] Normal eosinophils as percent of blood leukocytes 1.8 % [facility] Normal monocyte count, blood 7.8 % [facility] Normal lymphocyte count, blood 29.7 % [facility] Normal neutrophils as percent of blood leukocytes 60.1 % [facility] Normal basophils, absolute, manual 40 cells/mcL [facility] 0-200 Normal eosinophils, absolute, manual 121 cells/mcL [facility] 15-500 Normal monocytes, absolute, manual 523 cells/mcL [facility] 200-950 Normal lymphocytes, absolute 1990 CELLS/UL [facility] 850-3900 Normal Absolute Neutrophil count 4027 cells/mcL [facility] [id number] Normal mean platelet volume 10.9 fL [facility] 7.5-12.5 Normal platelet count 214 THOUSAND/UL [facility] 140-400 Normal red blood cell distribution width 13.3 % [facility] 11.0-15.0 Normal mean corpuscular hemoglobin concentration, RBC 33.1 G/DL [facility] 32.0-36.0 Normal mean corpuscular hemoglobin, RBC 30.1 pg [facility] 27.0-33.0 Normal mean corpuscular volume, RBC 91.0 fL [facility] 80.0-100.0 Normal hematocrit, blood 48.4 % [facility] 38.5-50.0 Normal hemoglobin electrophoresis, blood 16.0 [facility] 13.2-17.1 Normal erythrocyte (RBC) count 5.32 MILLION/UL [facility] 4.20-5.80 Normal leukocyte (white blood cells) count, blood 6.7 THOUSAND/UL [facility] 3.8-10.8 Normal calcium, serum 9.3 mg/dL [facility] 8.6-10.3 Normal carbon dioxide, venous blood 29 mmol/L [facility] 20-32 Normal chloride, serum 103 mmol/L [facility] 98-110 Normal potassium, serum 5.0 mmol/L [facility] 3.5-5.3 Normal sodium, serum 140 mmol/L [facility] 135-146 Normal urea nitrogen/creatinine ratio, serum NOT APPLICABLE (calc) [facility] 6-22 creatinine, serum 0.75 mg/dL [facility] 0.70-1.35 Normal urea nitrogen, blood 10 mg/dL [facility] 7-25 Normal blood glucose, random 97 mg/dL [facility] 65-99 Normal cholesterol, non-HDL, total 223 MG/DL (CALC) [facility] <130 High cholesterol/HDL ratio, serum, percent 6.9 (calc) [facility] <5.0 High LDL cholesterol, serum 187 MG/DL (CALC) [facility] High triglyceride, serum, fasting 189 mg/dL [facility] <150 High HDL cholesterol, serum 38 mg/dL [facility] > OR = 40 Low cholesterol, serum 261 mg/dL [facility] <200 High 2022/02 /10 alanine aminotransferase (SGPT), serum 11 1/L [facility] 9-46 Normal aspartate aminotransferase (SGOT), serum 11 1/L [facility] 10-35 Normal alkaline phosphatase, serum 72 1/L [facility] 35-144 Normal bilirubin, serum, total 0.5 mg/dL [facility] 0.2-1.2 Normal albumin/globulin ratio, serum 1.4 (calc) [facility] 1.0-2.5 Normal globulins, serum, total 2.8 G/DL (CALC) [facility] 1.9-3.7 Normal albumin, serum 4.0 g/dL [facility] 3.6-5.1 Normal protein, total, serum 6.8 g/dL [facility] 6.1-8.1 Normal calcium, serum 9.1 mg/dL [facility] 8.6-10.3 Normal carbon dioxide, venous blood 32 mmol/L [facility] 20-32 Normal chloride, serum 106 mmol/L [facility] 98-110 Normal potassium, serum 4.5 mmol/L [facility] 3.5-5.3 Normal sodium, serum 143 mmol/L [facility] 135-146 Normal urea nitrogen/creatinine ratio, serum NOT APPLICABLE (calc) [facility] 6-22 Estimated Glomerular Filtration Rate (calc) 112 mL/min/{1.73_ m2} [facility] > OR = 60 Normal creatinine, serum 0.72 mg/dL [facility] 0.70-1.25 Normal urea nitrogen, blood 11 mg/dL [facility] 7-25 Normal blood glucose, random 98 mg/dL [facility] 65-99 Normal cholesterol, non-HDL, total 100 MG/DL (CALC) [facility] <130 Normal cholesterol/HDL ratio, serum, percent 3.5 (calc) [facility]ic <5.0 Normal LDL cholesterol, serum 74 MG/DL (CALC) [facility] Normal triglyceride, serum, fasting 166 mg/dL [facility] <150 High HDL cholesterol, serum 40 mg/dL [facility] > OR = 40 Normal cholesterol, serum 140 mg/dL [facility] <200 Normal prothrombin time (patient) 10.3 s [facility] 9.1-12.0 international normalized ratio (INR) 1.0 [facility] 0.9-1.2 lipoprotein, beta, serum, point, quantitative, calculated 103 mg/dL [facility] 0-99 High HDL cholesterol, serum 40 mg/dL [facility] >39 triglyceride, serum, random 188 mg/dL [facility] 0-149 High cholesterol, serum 176 mg/dL [facility] [phone]/07 /22 calcium, serum 9.3 mg/dL [facility] 8.6-10.2 carbon dioxide, venous blood 29 mmol/L [facility] 20-29 chloride, serum 102 mmol/L [facility] 96-106 potassium, serum 5.3 mmol/L [facility] 3.5-5.2 High sodium, serum 144 mmol/L [facility] [phone]/07 /22 urea nitrogen/creatinine ratio, serum 15 [facility] 10-24 eGFR if 107 mL/min/{1.73_ m2} [facility] >59 eGFR if not 92 mL/min/{1.73_ m2} [facility] >59 creatinine, serum 0.80 mg/dL [facility] 0.76-1.27 urea nitrogen, blood 12 mg/dL [facility] 8-27 blood glucose, random 90 mg/dL [facility] 65-99 basophil count, absolute 0.0 x10E3/uL [facility] 0.0-0.2 Eosinophil Absolute Count 0.2 X10E3/UL [facility] 0.0-0.4 monocyte count, blood, automated 0.6 X10E3/UL [facility] 0.1-0.9 lymphocyte count, blood, automated 2.6 X10E3/UL [facility] 0.7-3.1 Absolute Neutrophils 3.3 X10E3/UL [facility] 1.4-7.0 basophils as percent of blood leukocytes 1 % LinkLogic Not Estab. eosinophils as percent of blood leukocytes 3 % [facility]ic Not Estab. monocytes as percent of blood leukocytes 9 % [facility] Not Estab. lymphocytes as percent of blood leukocytes 38 % [facility] Not Estab. neutrophils as percent of blood leukocytes 49 % [facility] Not Estab. platelet count 201 X10E3/UL [facility] [phone]/07 /22 red blood cell distribution width 14.3 % [facility] 11.6-15.4 mean corpuscular hemoglobin concentration, RBC 32.7 G/DL [facility] 31.5-35.7 mean corpuscular hemoglobin, RBC 29.7 pg [facility] 26.6-33.0 mean corpuscular volume, RBC 91 fL [facility] 79-97 hematocrit, blood 48.9 % [facility] 37.5-51.0 hemoglobin, blood 16.0 g/dL [facility] 13.0-17.7 erythrocyte (RBC) count 5.38 X10E6/UL [facility] 4.14-5.80 leukocyte count, blood 6.8 X10E3/UL [facility] 3.4-10.8 HISTORY OF MEDICATION USE Medication Status Instructions Dates Provider Indications Com ments lisinopril 10 mg tablet active TAKE 1 TABLET BY MOUTH EVERY DAY [facility] furosemide 20 mg tablet active TAKE 1 TABLET BY MOUTH DAILY [facility] Vascepa 1 gram capsule active Take 2 capsule by mouth twice a day Paris Marte MD ezetimibe 10 mg tablet active TAKE 1 TABLET BY MOUTH EVERY DAY [facility] Nicoderm CQ 21 mg/24 hr patch 24 hour active Apply 1 patch to skin once a day Paris Marte MD rosuvastatin 40 mg tablet active TAKE 1 TABLET BY MOUTH EVERY NIGHT [facility] lisinopril 10 mg tablet completed Take 1 tablet by mouth once a day TAKE 1 TABLET BY MOUTH DAILY - [facility] budesonide-formo terol 80-4.5 mcg/actuation HFA aerosol inhaler active INHALE 2 PUFFS BY MOUTH TWICE DAILY DIRECTED Paris Marte MD Symbicort 80-4.5 mcg/actuation HFA aerosol inhaler completed - Wanda Hamilton lisinopril 10 mg tablet completed TAKE 1 TABLET BY MOUTH DAILY - Kolby Hopkins furosemide 20 mg tablet completed TAKE ONE TABLETS BY MOUTH DAILY - Monica Merritt carvedilol 6.25 mg tablet active TAKE 1 TABLET BY MOUTH TWICE DAILY [facility] carvedilol 6.25 mg tablet completed Take 1 tablet by mouth twice a day TAKE 1 TABLET BY MOUTH TWICE DAILY - Reyna Royal nitroglycerin 0.4 mg tablet, sublingual active 1 tablet under tongue as directed as needed 1 tablet under tongue for chest pain. May repeat every 5 minutes if still having chest pain- to max of 3 tablets per episode.If no relief after 3rd dose, go to ER Paris Marte MD nitroglycerin 0.4 mg tablet, sublingual active 1 tablet under tongue as directed as needed 1 tablet under tongue for chest pain. May repeat every 5 minutes if still having chest pain- to max of 3 tablets per episode.If no relief after 3rd dose, go to ER Paris Marte MD Symbicort 80-4.5 mcg/actuation HFA aerosol inhaler completed Inhale 2 puff as directed twice a day - Paris Marte MD carvedilol 6.25 mg tablet completed 1 tablet twice a day - Paris Marte MD lisinopril 10 mg tablet completed 1 tablet once a day - Sophia Jackson ASPIRIN 81 81 MG TBEC active 1 tablet by mouth once a day Karyn Casas rosuvastatin 20 mg tablet completed Take 1 tablet by mouth once a day TAKE 1 TABLET DAILY - Paris Marte MD SOCIAL HISTORY Date Observation Value Provider drug use no Paris dunbar MD alcohol use no Paris dunbar MD smoking/tobacco cess ation, patient education and counseling yes Paris Marte MD smoking, year quit 2020 Paris Marte MD number of years as a smoker 50 a Paris Marte MD smoking history, tot al pack/day 1 Paris Marte MD cigarette use yes Paris ramsay MD smoking status Current every da y smoker Paris Marte MD drug use no Paris dunbar MD alcohol use no Paris dunbar MD smoking/tobacco cess ation, patient education and counseling yes Paris Marte MD smoking, year quit 2020 Paris Marte MD number of years as a smoker 50 a Paris Marte MD smoking history, tot al pack/day 1 Paris Marte MD cigarette use yes Paris ramsay MD smoking status Current every da y smoker Paris Marte MD drug use no Glory Guevara alcohol use no Glory Guevara smoking/tobacco cess ation, patient education and counseling yes Glory Guevara smoking, year quit 2020 Glory anand number of years as a smoker 50 a Glory Guevara smoking history, tot al pack/day 1 Glory Guevara cigarette use yes Glory Guevara smoking status Current every da y smoker Glory Guevara smoking/tobacco cess ation, patient education and counseling yes Paris Marte MD social history E&M Smoking Histo ry: P atient currently smokes every day. P atient has been counseled to quit. Paris Marte MD social history reviewed E&M revi ewed - no changes required Paris Marte MD social history E&M S moking History: P atient currently smokes every day. P atient has been counseled to quit. Paris Marte MD social history reviewed E&M revi ewed - no changes required Paris Marte MD smoking/tobacco cess ation, patient education and counseling yes Monica Merritt smoking, year quit 2020 Monica Art heredia number of years as a smoker 50 a Monica Rneé smoking history, tot al pack/day 1 Monica Merritt cigarette use yes Monica Merritt smoking status Current every da y smoker Monica René social history reviewed E&M revi ewed - no changes required Celia Reddy social history E&M S moking History: P atient currently smokes every day. P atient has been counseled to quit. Celia Reddy drug use no Gloria Ventimig naeem [facility] alcohol use no Gloria Ventimig naeem [facility] smoking/tobacco cess ation, patient education and counseling yes Ana Golden smoking, year quit 2020 Ana Golden number of years as a smoker 50 a Ana Golden smoking history, tot al pack/day 1 Ana Golden cigarette use yes Ana mike smoking status Current every da y smoker Ana Golden social history E&M S moking History: Gina mireles currently smokes every day. Paris Marte MD social history reviewed E&M revi ewed - no changes required Paris Marte MD number of years as a smoker 50 a Kayla Phan smoking history, tot al pack/day 1 Kayla Sylvester cigarette use yes Kayla Phan smoking status Current every da y smoker Kayla Phan social history reviewed E&M revi ewed - no changes required Paris Marte MD social history E&M S moking History: Gina mireles currently smokes every day. Paris Marte MD social history reviewed E&M revi ewed - no changes required Paris Marte MD smoking history, tot al pack/day 1pk David Lynn cigarette use yes David avery smoking status Current every da y smoker David Lynn social history E&M S moking History: Gina mireles is a former smoker. Paris Marte MD social history reviewed E&M revi ewed - no changes required Paris Marte MD smoking, year quit 2020 Earnestine Alfaro number of years as a smoker 50 a Earnestine Alfaro smoking history, tot al pack/day 1 PPD Earnestine Alfaro cigarette use yes Earnestine de jesus smoking status Former smoker Earnestine Espinoza social history E&M S moking History: Gina mireles currently smokes every day. Gina mireles has been counseled to quit. Paris Marte MD social history reviewed E&M revi ewed - no changes required Paris Marte MD smoking/tobacco cess ation, patient education and counseling yes Natalia Campo number of years as a smoker 50 a Natalia OlsenFabián smoking history, tot al pack/day 1 PPD Natalia OlsenFabián cigarette use yes Natalia OlsenFabián smoking status Current every da y smoker Natalia Campo social history E&M S moking History: P chi currently smokes every day. P atsteven has been counseled to quit. Paris Marte MD social history reviewed E&M revi ewed - no changes required Paris Marte MD smoking/tobacco cess ation, patient education and counseling yes Sophie Ravindra number of years as a smoker 48 a Sophie Waite smoking history, tot al pack/day 1 PPD Sophie Wiate cigarette use yes Sophie Dhaval diaz smoking status Current every da y smoker Sophie Waite number of grandchildren Paris Marte MD social history E&M S moking History: Gina mireles currently smokes every day. P chi has been counseled to quit. Paris Marte MD social history reviewed E&M revi ewed - no changes required Paris Marte MD smoking/tobacco cess ation, patient education and counseling yes Karyn Casas number of years as a smoker 48 a Karyn Casas smoking history, tot al pack/day 1 PPD Karyn Casas cigarette use yes Karyn hampton smoking status Current every da y smoker Karyn Casas smoking/tobacco cess ation, patient education and counseling yes Paris Marte MD social history E&M S moking History: P atient currently smokes every day. Paris Marte MD social history reviewed E&M revi ewed - no changes required Paris Marte MD number of years as a smoker 50 a Sophie Waite smoking history, tot al pack/day 1 PPD Sophie Waite cigarette use yes Sophie Puentes ll smoking status Current every da y smoker Sophie Waite FUNCTIONAL STATUS Date Observation Value Provider HRA, CV Assess/Plan, Angina (inactive) Management Plan continue current therapy Paris Marte MD HRA, CV Assess/Plan, Angina (inactive) Management Plan continue current therapy Paris Marte MD HRA, CV Assess/Plan, Angina (inactive) Management Plan continue current therapy Paris Marte MD HRA, CV Assess/Plan, Angina (inactive) Management Plan continue current therapy Paris Marte MD HRA, CV Assess/Plan, Angina (inactive) Management Plan continue current therapy Celia Reddy HRA, CV Assess/Plan, Angina (inactive) Management Plan continue current therapy Paris Marte MD FAMILY HISTORY Family Member Condition First Degree Blood Relative No Known Fam nai History INSURANCE PROVIDERS Payer name Policy type / Coverage type [place] [employer] party ID AARP MEDICARE ADVANTAGE HMO-POS HMO [id number] ADVANCE DIRECTIVES Name Date DISCUSSED - NO DECISION MADE TREATMENT PLAN Date Name Performer [id number],C, C HOL: 140 (04/15/2021) LDL: 74 MG/DL (CALC) (04/15/2021) HDL: 40 (04/15/2021) T (04/15/2021) His updated medication list for this problem includes: Rosuvastatin 20 Mg Tablet (Rosuvastatin) ..... Take 1 tablet by mouth once a day take 1 tablet daily April 15, 2022 C HOL levels are high will increase Crestor to 40mg Paris Marte MD [id number],S, C essation encouraged. Will plan low dose screening CT of the lungs April 15, 2022 T he Patient was reencouraged to stop smoking. Get patches August 29, 2022 Tried patch did not derive much benefit. Paris Marte MD [id number],C, a bnomral carotid us led to getting cta FINDINGS: R ight carotid system: The CCA, ICA, and ECA origin are patent, there is very m ild calcified and soft plaque within the right carotid bulb resulting in s tenosis of 30% or less. The distal ICA contributes to the afwqjt-lu-Femznk. L eft carotid system: The CCA, ICA, and ECA origin are patent. There is calcification within the distal ruled left common carotid artery proximal to t he bulb resulting in stenosis of approximately 30%. The proximal left i nternal carotid artery is tortuous. The distal ICA contribute to the c zgxwy-hm-Skieyw. V ertebrobasilar: Both vertebral arteries are patent contributing to the b asilar artery. I MPRESSION: N o hemodynamic significant stenosis, see above. O n asa and statin. Recommend CTA to evaluate his carotid vasculature. February 03, 2021 W il follow carotid ultrasounds M arch 2021 C arotids reviewed. MIld disease September 24, 2021 C arotids were OK Paris Marte MD [id number],C, E cho reviewed EF 60% Paris Marte MD [id number],S, T his has been a chronic issue. Unclear if cardiac or pulmonary. Most likely multifacorial. Last echo normal EF with no significant valvular abnormalities, but most likely diastolic dysfunction as some improvement with addition of lasix. He has known CAD, but no new issues in that regard. Have recommended PFT and low dose screening lung CT for further evaluation. Will also do home sleep study to r/o NO as contributing cause for his SOB April 15, 2022 H e had a PFT done that was abnormal. Sees Pulmonary Dr. Chamberlain August 29, 2022 B aseline COPD Paris Marte MD [id number],C, B P today: 96/60 P rior BP: 153/82 (04/15/2022) Labs Reviewed: C reat: 0.75 (04/08/2022) C hol: 261 (04/08/2022) HDL: 38 (04/08/2022) LDL: 187 MG/DL (CALC) (04/08/2022) T (04/08/2022) His updated medication list for this problem includes: Carvedilol 6.25 Mg Tablet (Carvedilol) ..... Take 1 tablet by mouth twice daily Lisinopril 10 Mg Tablet (Lisinopril) ..... Take 1 tablet by mouth once a day take 1 tablet by mouth daily Furosemide 20 Mg Tablet (Furosemide) ..... Take one tablets by mouth daily Paris Marte MD [id number],C,A dded fish oil today trig 222 H is updated medication list for this problem includes: Vascepa 1 Gram Capsule (Icosapent ethyl) ..... Take 2 capsule by mouth twice a day Zetia 10 Mg Tablet (Ezetimibe) ..... Take 1 tablet by mouth every day Rosuvastatin 40 Mg Tablet (Rosuvastatin) ..... Take 1 tablet by mouth every night Paris Marte MD [id number],C, H ad cath done HAND HARDENER RCA on [facility] otherwise stable Paris Marte MD [id number],C,U jemal review of invasive and noninvasive testing and recent exam the patient is an acceptable candidate for the planned ENDOSCOPY procedure recommend to maintain his blood pressure range of 110 to 140 mmHg and a heart rate of 60-80 B p.m.. It is okay to use IV beta blockers calcium channel blockers nitrates and afterload reducing agents to maintain the aforementioned hemodynamics parameters. Tele monitoring and EKG should be done if the patient has arrhythmia during procedure. HE HAS A KNOWN HX OF HAND HARDENER OF RCA. HAS BEEN ON MED RX. OKAY TO HOLD ASA/PLAVIX FOR 3-5 DAYS PRE PROCEDURE AND THEN RESUME WHEN OKAY [facility] GI DOCTOR Paris Marte MD [id number],C, C essation encouraged. Will plan low dose screening CT of the lungs April 15, 2022 T he Patient was reencouraged to stop smoking. Get patches Paris Marte MD [id number],C, c arotid ct FINDINGS: R ight carotid system: The CCA, ICA, and ECA origin are patent, there is very m ild calcified and soft plaque within the right carotid bulb resulting in s tenosis of 30% or less. The distal ICA contributes to the yondgt-hq-Ajrcda. L eft carotid system: The CCA, ICA, and ECA origin are patent. There is c alcification within the distal ruled left common carotid artery proximal to t he bulb resulting in stenosis of approximately 30%. The proximal left i nternal carotid artery is tortuous. The distal ICA contribute to the dnbhqy-qb-Gpcdqa. V ertebrobasilar: Both vertebral arteries are patent contributing to the b asilar artery. I MPRESSION: N o hemodynamic significant stenosis, see above. February 03, 2021 W ill follow carotid ultrasound April 15, 2022 C ONCLUSIONS: 1 . Mild plaque with less than 50% stenosis of the internal carotid arteries bilaterally. 2 . Vertebral flow is antegrade bilaterally. 3 . Tortuous carotid arteries. E lectronically signed by Paris Marte MD on 05/05/2021 at 8:57 AM Paris Marte MD [id number],C, C HOL: 140 (04/15/2021) LDL: 74 MG/DL (CALC) (04/15/2021) HDL: 40 (04/15/2021) T (04/15/2021) His updated medication list for this problem includes: Rosuvastatin 20 Mg Tablet (Rosuvastatin) ..... Take 1 tablet by mouth once a day take 1 tablet daily April 15, 2022 C HOL levels are high will increase Crestor to 40mg Paris Marte MD [id number],C, T his has been a chronic issue. Unclear if cardiac or pulmonary. Most likely multifacorial. Last echo normal EF with no significant valvular abnormalities, but most likely diastolic dysfunction as some improvement with addition of lasix. He has known CAD, but no new issues in that regard. Have recommended PFT and low dose screening lung CT for further evaluation. Will also do home sleep study to r/o NO as contributing cause for his SOB April 15, 2022 H e had a PFT done that was abnormal. Sees Pulmonary Dr. Cintia Marte MD [id number],C, H ad cath done HAND HARDENER RCA on [facility] otherwise stable Paris Marte MD [id number],S,C essation encouraged. Will plan low dose screening CT of the lungs [facility] [id number],S,b lood pressure controlled continue present regimen H is updated medication list for this problem includes: Lisinopril 10 Mg Tablet (Lisinopril) ..... Take 1 tablet by mouth daily Furosemide 20 Mg Tablet (Furosemide) ..... Take one tablets by mouth daily Carvedilol 6.25 Mg Tablet (Carvedilol) ..... Take 1 tablet by mouth twice daily [facility] [id number],S, H ad cath done HAND HARDENER RCA on [facility] otherwise [facility] [id number],S,T his has been a chronic issue. Unclear if cardiac or pulmonary. Most likely multifacorial. Last echo normal EF with no significant valvular abnormalities, but most likely diastolic dysfunction as some improvement with addition of lasix. He has known CAD, but no new issues in that regard. Have recommended PFT and low dose screening lung CT for further evaluation. Will also do home sleep study to r/o NO as contributing cause for his SOB H is updated medication list for this problem includes: Lisinopril 10 Mg Tablet (Lisinopril) ..... Take 1 tablet by mouth daily Furosemide 20 Mg Tablet (Furosemide) ..... Take one tablets by mouth daily Carvedilol 6.25 Mg Tablet (Carvedilol) ..... Take 1 tablet by mouth twice daily Orders: 9 9215 HIGH 40-54min (CPT-57951) F VC - 34860 (50441) F RC - 25074 (78909) D LCO - 16408 (99254) A mbulatory Oximetry (CPT-07992) 6 minute walk test (CPT-10616) S pirometry (CPT-79222) C ounseling LDCT (CPT-G0296) L ow Dose Lung CT (CPT-G0297) S [facility] Study Home (CPT-97174) Gloria Pintocjmarjan [facility] [id number],C,C HOL: 140 (04/15/2021) LDL: 74 MG/DL (CALC) (04/15/2021) HDL: 40 (04/15/2021) T (04/15/2021) His updated medication list for this problem includes: Rosuvastatin 20 Mg Tablet (Rosuvastatin) ..... Take 1 tablet by mouth once a day take 1 tablet daily Paris Marte MD [id number],C,B P at home pretty good, in the 130s systolic. Paris Marte MD [id number],C, a bnomral carotid us led to getting cta FINDINGS: R ight carotid system: The CCA, ICA, and ECA origin are patent, there is very m ild calcified and soft plaque within the right carotid bulb resulting in s tenosis of 30% or less. The distal ICA contributes to the jwdctw-pm-Hvejtk. L eft carotid system: The CCA, ICA, and ECA origin are patent. There is calcification within the distal ruled left common carotid artery proximal to t he bulb resulting in stenosis of approximately 30%. The proximal left i nternal carotid artery is tortuous. The distal ICA contribute to the c frhwo-dh-Oinlhb. V ertebrobasilar: Both vertebral arteries are patent contributing to the b asilar artery. I MPRESSION: N o hemodynamic significant stenosis, see above. O n asa and statin. Recommend CTA to evaluate his carotid vasculature. February 03, 2021 W il follow carotid ultrasounds M arch 2021 C arotids reviewed. MIld disease September 24, 2021 C arotids were OK Paris Marte MD [id number],C, H ad cath done HAND HARDENER RCA on Med[facility] otherwise stable Paris Marte MD [id number],C, w ill try giving asymbicort inhailer will get PFTs done September 24, 2021 w ill try lasix 20 mg daily His updated medication list for this problem includes: Furosemide 20 Mg Tablet (Furosemide) ..... Take one tablets by mouth daily Carvedilol 6.25 Mg Tablet (Carvedilol) ..... Take 1 tablet by mouth twice daily Lisinopril 10 Mg Tablet (Lisinopril) ..... 1 tablet once a day Paris Marte MD [id number],C, H ad cath done HAND HARDENER RCA on [facility] otherwise stable Paris Marte MD [id number],S, S tress nuc 04/30/20: 1 . Rare PVCs seen during stress portion of the exam. 2 . Abnormal perfusion imaging - see below. Technical quality of study is good. Left ventricle cavity size with stress is enlarged. 3 . The inferior wall has a severe perfusion abnormality defect. The perfusion defect is large in size. The defect has slight reversibility. 4 . Left Ventricular Ejection Fraction is 33 %. TID: 1.07. May 06, 2020 R carrillowed options for proceeding with cath. Patient's understands that he may have an MN and may be fatal. REviewed with patient. HE at present does not want to proceed with cardiac cath. Aware of risks and consequences. This coincides with the reduction of EF with the prior echo. June 15, 2020 n o new CP has sob may be related to htn wll increase lisionpril to 10mg once daily September 23, 2020 w ill schedule him for a diagnostic cath right and left since his sob has not improved at all and he has abn stress February 03, 2021 H ad cath done HAND HARDENER RCA on [facility] otherwise stable Paris Marte MD [id number],C, a bnomral carotid us led to getting cta FINDINGS: R ight carotid system: The CCA, ICA, and ECA origin are patent, there is very m ild calcified and soft plaque within the right carotid bulb resulting in s tenosis of 30% or less. The distal ICA contributes to the wizfmt-mg-Loncuy. L eft carotid system: The CCA, ICA, and ECA origin are patent. There is calcification within the distal ruled left common carotid artery proximal to t he bulb resulting in stenosis of approximately 30%. The proximal left i nternal carotid artery is tortuous. The distal ICA contribute to the c fgrdf-qt-Rfmwid. V ertebrobasilar: Both vertebral arteries are patent contributing to the b asilar artery. I MPRESSION: N o hemodynamic significant stenosis, see above. O n asa and statin. Recommend CTA to evaluate his carotid vasculature. February 03, 2021 W il follow carotid ultrasounds M arch 2021 C arotids reviewed. MIld disease Paris Marte MD [id number],C,Echo reviewed EF 60% Paris Marte MD [id number],C,4 PVcs noted on today's ekg will need to have him wear a monitor to see frequency of PVCs. Since he has CAD we are concerned. May need to do ischemic workup to evaluate LAD distribution. Paris Marte MD [id number],C, B P today: 146/72 P rior BP: 100/70 (02/03/2021) Labs Reviewed: C reat: 0.72 (04/15/2021) C hol: 140 (04/15/2021) HDL: 40 (04/15/2021) LDL: 74 MG/DL (CALC) (04/15/2021) T (04/15/2021) His updated medication list for this problem includes: Carvedilol 6.25 Mg Tablet (Carvedilol) ..... Take 1 tablet by mouth twice daily Lisinopril 10 Mg Tablet (Lisinopril) ..... 1 tablet once a day Paris Marte MD [id number],Isaias, R educed EF on echo and nuclear stress test. Add beta isamar. Woudl add low dose PABLO-i as well for medical management with lisinopril 5mg daily. Will add aldactone 25mg once he tolerates these medciations. February 03, 2021 [place] doing well [facility] stable Paris Marte MD [id number],C, B P today: 100/70 P rior BP: 144/70 (10/30/2020) Labs Reviewed: C reat: 0.80 (09/24/2020) C hol: 176 (09/24/2020) HDL: 40 (09/24/2020) His updated medication list for this problem includes: Carvedilol 6.25 Mg Tablet (Carvedilol) ..... 1 tablet twice a day Lisinopril 10 Mg Tablet (Lisinopril) ..... 1 tablet once a day Paris Marte MD [id number],S,I ncreased crestor to 20mg for risk factor modificationCHOL: 176 (09/24/2020) HDL: 40 (09/24/2020) Paris Marte MD [id number],C, S tress nuc 04/30/20: 1 . Rare PVCs seen during stress portion of the exam. 2 . Abnormal perfusion imaging - see below. Technical quality of study is good. Left ventricle cavity size with stress is enlarged. 3 . The inferior wall has a severe perfusion abnormality defect. The perfusion defect is large in size. The defect has slight reversibility. 4 . Left Ventricular Ejection Fraction is 33 %. TID: 1.07. May 06, 2020 Elyssa vizcainowed options for proceeding with cath. Patient's understands that he may have an MN and may be fatal. REviewed with patient. HE at present does not want to proceed with cardiac cath. Aware of risks and consequences. This coincides with the reduction of EF with the prior echo. June 15, 2020 n o new CP has sob may be related to htn wll increase lisionpril to 10mg once daily September 23, 2020 w ill schedule him for a diagnostic cath right and left since his sob has not improved at all and he has abn stress February 03, 2021 H ad cath done HAND HARDENER RCA on [facility] otherwise stable Paris Marte MD [id number],C, a bnomral carotid us led to getting cta FINDINGS: R ight carotid system: The CCA, ICA, and ECA origin are patent, there is very m ild calcified and soft plaque within the right carotid bulb resulting in s tenosis of 30% or less. The distal ICA contributes to the fokify-uo-Sazasl. L eft carotid system: The CCA, ICA, and ECA origin are patent. There is calcification within the distal ruled left common carotid artery proximal to t he bulb resulting in stenosis of approximately 30%. The proximal left i nternal carotid artery is tortuous. The distal ICA contribute to the c dokpb-lv-Rtaaia. V ertebrobasilar: Both vertebral arteries are patent contributing to the b asilar artery. I MPRESSION: N o hemodynamic significant stenosis, see above. O n asa and statin. Recommend CTA to evaluate his carotid vasculature. February 03, 2021 W il follow carotid ultrasounds Paris Marte MD [id number],C, c arotid ct FINDINGS: R ight carotid system: The CCA, ICA, and ECA origin are patent, there is very m ild calcified and soft plaque within the right carotid bulb resulting in s tenosis of 30% or less. The distal ICA contributes to the zghhcc-ct-Bgvieq. L eft carotid system: The CCA, ICA, and ECA origin are patent. There is c alcification within the distal ruled left common carotid artery proximal to t he bulb resulting in stenosis of approximately 30%. The proximal left i nternal carotid artery is tortuous. The distal ICA contribute to the cmkqgf-ow-Yjomlf. V ertebrobasilar: Both vertebral arteries are patent contributing to the b asilar artery. I MPRESSION: N o hemodynamic significant stenosis, see above. February 03, 2021 W ill follow carotid ultrasound Paris Marte MD [id number],S, c arotid ct FINDINGS: R ight carotid system: The CCA, ICA, and ECA origin are patent, there is very m ild calcified and soft plaque within the right carotid bulb resulting in s tenosis of 30% or less. The distal ICA contributes to the kjxsbr-nm-Cyegcr. L eft carotid system: The CCA, ICA, and ECA origin are patent. There is c alcification within the distal ruled left common carotid artery proximal to t he bulb resulting in stenosis of approximately 30%. The proximal left i nternal carotid artery is tortuous. The distal ICA contribute to the knlgbi-pk-Gyevcj. V ertebrobasilar: Both vertebral arteries are patent contributing to the b asilar artery. I MPRESSION: N o hemodynamic significant stenosis, see above. Paris Marte MD [id number],[place] [id number],S, Paris mejia MD [id number],C, w ill try giving asymbicort inhailer will get PFTs done Paris Marte MD [id number],C, S tre nuc 04/30/20: 1 . Rare PVCs seen during stress portion of the exam. 2 . Abnormal perfusion imaging - see below. Technical quality of study is good. Left ventricle cavity size with stress is enlarged. 3 . The inferior wall has a severe perfusion abnormality defect. The perfusion defect is large in size. The defect has slight reversibility. 4 . Left Ventricular Ejection Fraction is 33 %. TID: 1.07. May 06, 2020 R eviewed options for proceeding with cath. Patient's understands that he may have an MN and may be fatal. REviewed with patient. HE at present does not want to proceed with cardiac cath. Aware of risks and consequences. This coincides with the reduction of EF with the prior echo. June 15, 2020 n o new CP has sob may be related to htn wll increase lisionpril to 10mg once daily September 23, 2020 w ill schedule him for a diagnostic cath right and left since his sob has not improved at all and he has abn stress Paris Marte MD [id number],S, H is updated medication list for this problem includes: Rosuvastatin Calcium 10 Mg Oral Tablet (Rosuvastatin calcium) ..... Take 1 tab daily Paris Marte MD [id number],C, A Dvised to quit smoking Paris Marte MD [id number],S,w ill try giving asymbicort inhailer will get PFTs done Paris Marte MD [id number],C,i ncrease correg to 12.5 bid H is updated medication list for this problem includes: Carvedilol 6.25 Mg Tablet (Carvedilol) ..... 1 tablet twice a day Lisinopril 10 Mg Tablet (Lisinopril) ..... 1 tablet once a day Paris Marte MD [id number],C,c arotid ct FINDINGS: R ight carotid system: The CCA, ICA, and ECA origin are patent, there is very m ild calcified and soft plaque within the right carotid bulb resulting in s tenosis of 30% or less. The distal ICA contributes to the udahcq-da-Evnnfz. L eft carotid system: The CCA, ICA, and ECA origin are patent. There is c alcification within the distal ruled left common carotid artery proximal to t he bulb resulting in stenosis of approximately 30%. The proximal left i nternal carotid artery is tortuous. The distal ICA contribute to the c janyj-se-Hfjpfb. V ertebrobasilar: Both vertebral arteries are patent contributing to the b asilar artery. I MPRESSION: N o hemodynamic significant stenosis, see above. Paris Marte MD Cardiology: L DL was 45 on labs from 11/24/22 H is updated medication list for this problem includes: Rosuvastatin 40 Mg Tablet (Rosuvastatin) ..... Take 1 tablet by mouth every night Vascepa 1 Gram Capsule (Icosapent ethyl) ..... Take 2 capsule by mouth twice a day Zetia 10 Mg Tablet (Ezetimibe) ..... Take 1 tablet by mouth every day Paris Marte MD Cardiology: Annie stockton reviewed EF 60% His updated medication list for this problem includes: Carvedilol 6.25 Mg Tablet (Carvedilol) ..... Take 1 tablet by mouth twice daily Furosemide 20 Mg Tablet (Furosemide) ..... Take 1 tablet by mouth daily Lisinopril 10 Mg Tablet (Lisinopril) ..... Take 1 tablet by mouth every day Nitroglycerin 0.4 Mg Tablet, Sublingual (Nitroglycerin) ..... 1 tablet under tongue as directed as needed 1 tablet under tongue for chest pain. may repeat every 5 minutes if still having chest pain- to max of 3 tablets per episode.if no relief after 3rd dose, go to er Nitroglycerin 0.4 Mg Tablet, Sublingual (Nitroglycerin) ..... 1 tablet under tongue as directed as needed 1 tablet under tongue for chest pain. may repeat every 5 minutes if still having chest pain- to max of 3 tablets per episode.if no relief after 3rd dose, go to er Paris Marte MD Cardiology: R educed EF on echo and nuclear stress test. Add beta isamar. Woudl add low dose PABLO-i as well for medical management with lisinopril 5mg daily. Will add aldactone 25mg once he tolerates these medciations. February 03, 2021 [place] doing well [facility] stable Paris Marte MD Cardiology: c arotid ct FINDINGS: R ight carotid system: The CCA, ICA, and ECA origin are patent, there is very m ild calcified and soft plaque within the right carotid bulb resulting in s tenosis of 30% or less. The distal ICA contributes to the sjvlij-td-Wrvccw. L eft carotid system: The CCA, ICA, and ECA origin are patent. There is c alcification within the distal ruled left common carotid artery proximal to t he bulb resulting in stenosis of approximately 30%. The proximal left i nternal carotid artery is tortuous. The distal ICA contribute to the c cybbz-hi-Compgb. V ertebrobasilar: Both vertebral arteries are patent contributing to the b asilar artery. I MPRESSION: N o hemodynamic significant stenosis, see above. February 03, 2021 W ill follow carotid ultrasound April 15, 2022 C ONCLUSIONS: 1 . Mild plaque with less than 50% stenosis of the internal carotid arteries bilaterally. 2 . Vertebral flow is antegrade bilaterally. 3 . Tortuous carotid arteries. E lectronically signed by Paris Marte MD on 05/05/2021 at 8:57 AM Paris Marte MD Cardiology: H ad cath done HAND HARDENER RCA on [facility] otherwise stable Paris Marte MD Cardiology: a bnomral carotid us led to getting cta FINDINGS: R ight carotid system: The CCA, ICA, and ECA origin are patent, there is very m ild calcified and soft plaque within the right carotid bulb resulting in s tenosis of 30% or less. The distal ICA contributes to the mzsukv-sz-Aeevoz. L eft carotid system: The CCA, ICA, and ECA origin are patent. There is c alcification within the distal ruled left common carotid artery proximal to t he bulb resulting in stenosis of approximately 30%. The proximal left i nternal carotid artery is tortuous. The distal ICA contribute to the c srylt-tc-Lynwge. V ertebrobasilar: Both vertebral arteries are patent contributing to the b asilar artery. I MPRESSION: N o hemodynamic significant stenosis, see above. O n asa and statin. Recommend CTA to evaluate his carotid vasculature. February 03, 2021 W il follow carotid ultrasounds M arch 2021 C arotids reviewed. MIld disease September 24, 2021 C arotids were OK Paris Marte MD Cardiology: R educed EF on echo and nuclear stress test. Add beta isamar. Woudl add low dose PABLO-i as well for medical management with lisinopril 5mg daily. Will add aldactone 25mg once he tolerates these medciations. February 03, 2021 [place] doing well [facility] stable Paris Marte MD Cardiology:LDL was 4 5 on labs from 11/24/22 H is updated medication list for this problem includes: Rosuvastatin 40 Mg Tablet (Rosuvastatin) ..... Take 1 tablet by mouth every night Vascepa 1 Gram Capsule (Icosapent ethyl) ..... Take 2 capsule by mouth twice a day Zetia 10 Mg Tablet (Ezetimibe) ..... Take 1 tablet by mouth every day Paris Marte MD Cardiology: T his has been a chronic issue. Unclear if cardiac or pulmonary. Most likely multifacorial. Last echo normal EF with no significant valvular abnormalities, but most likely diastolic dysfunction as some improvement with addition of lasix. He has known CAD, but no new issues in that regard. Have recommended PFT and low dose screening lung CT for further evaluation. Will also do home sleep study to r/o NO as contributing cause for his SOB April 15, 2022 H e had a PFT done that was abnormal. Sees Pulmonary Dr. Chamberlain August 29, 2022 B aseline COPD February 10, 2023 r estarted smoking June 23, 2023 T he Patient was reencouraged to stop smoking. Paris Marte MD Cardiology: A dded fish oil today trig 222 H is updated medication list for this problem includes: Vascepa 1 Gram Capsule (Icosapent ethyl) ..... Take 2 capsule by mouth twice a day Zetia 10 Mg Tablet (Ezetimibe) ..... Take 1 tablet by mouth every day Rosuvastatin 40 Mg Tablet (Rosuvastatin) ..... Take 1 tablet by mouth every night Paris Marte MD Cardiology: H ad cath done HAND HARDENER RCA on [facility] otherwise stable Paris Marte MD Cardiology: H is updated medication list for this problem includes: Vascepa 1 Gram Capsule (Icosapent ethyl) ..... Take 2 capsule by mouth twice a day Zetia 10 Mg Tablet (Ezetimibe) ..... Take 1 tablet by mouth every day Rosuvastatin 40 Mg Tablet (Rosuvastatin) ..... Take 1 tablet by mouth every night Paris Marte MD Cardiology:Discussio n of benefits for remote patient monitoring took place. Patient gives consent for remote monitoring of physiologic parameters including, but not limited to, weight, blood pressure, pulse oximetry, respiratory flow rate. His updated medication list for this problem includes: Furosemide 20 Mg Tablet (Furosemide) ..... Take 1 tablet by mouth daily Carvedilol 6.25 Mg Tablet (Carvedilol) ..... Take 1 tablet by mouth twice daily Lisinopril 10 Mg Tablet (Lisinopril) ..... Take 1 tablet by mouth once a day take 1 tablet by mouth daily BP today: 140/84 P rior BP: 96/60 (08/29/2022) Labs Reviewed: C reat: 0.75 (04/08/2022) C hol: 261 (04/08/2022) HDL: 38 (04/08/2022) LDL: 187 MG/DL (CALC) (04/08/2022) T (04/08/2022) Paris Marte MD Cardiology: a bnomral carotid us led to getting cta FINDINGS: R ight carotid system: The CCA, ICA, and ECA origin are patent, there is very m ild calcified and soft plaque within the right carotid bulb resulting in s tenosis of 30% or less. The distal ICA contributes to the ddzrep-lu-Tfrwsa. L eft carotid system: The CCA, ICA, and ECA origin are patent. There is c alcification within the distal ruled left common carotid artery proximal to t he bulb resulting in stenosis of approximately 30%. The proximal left i nternal carotid artery is tortuous. The distal ICA contribute to the c sevdq-gy-Jrhjtv. V ertebrobasilar: Both vertebral arteries are patent contributing to the b asilar artery. I MPRESSION: N o hemodynamic significant stenosis, see above. O n asa and statin. Recommend CTA to evaluate his carotid vasculature. February 03, 2021 W il follow carotid ultrasounds M arch 2021 C arotids reviewed. MIld disease September 24, 2021 C arotids were OK Paris Marte MD Cardiology: c arotid ct FINDINGS: R ight carotid system: The CCA, ICA, and ECA origin are patent, there is very m ild calcified and soft plaque within the right carotid bulb resulting in s tenosis of 30% or less. The distal ICA contributes to the xvvyse-hg-Cseequ. L eft carotid system: The CCA, ICA, and ECA origin are patent. There is c alcification within the distal ruled left common carotid artery proximal to t he bulb resulting in stenosis of approximately 30%. The proximal left i nternal carotid artery is tortuous. The distal ICA contribute to the c tfpsf-td-Fsjxgp. V ertebrobasilar: Both vertebral arteries are patent contributing to the b asilar artery. I MPRESSION: N o hemodynamic significant stenosis, see above. February 03, 2021 W ill follow carotid ultrasound April 15, 2022 C ONCLUSIONS: 1 . Mild plaque with less than 50% stenosis of the internal carotid arteries bilaterally. 2 . Vertebral flow is antegrade bilaterally. 3 . Tortuous carotid arteries. 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 Unclear if cardiac or pulmonary. Most likely multifacorial. Last echo normal EF with no significant valvular abnormalities, but most likely diastolic dysfunction as some improvement with addition of lasix. He has known CAD, but no new issues in that regard. Have recommended PFT and low dose screening lung CT for further evaluation. Will also do home sleep study to r/o NO as contributing cause for his SOB April 15, 2022 H e had a PFT done that was abnormal. Sees Pulmonary Dr. Chamberlain August 29, 2022 B aseline COPD D ecember 2022 r estarted smoking Paris Marte MD Cardiology: C HOL: 140 (04/15/2021) LDL: 74 MG/DL (CALC) (04/15/2021) HDL: 40 (04/15/2021) T (04/15/2021) His updated medication list for this problem includes: Rosuvastatin 20 Mg Tablet (Rosuvastatin) ..... Take 1 tablet by mouth once a day take 1 tablet daily April 15, 2022 C HOL levels are high will increase Crestor to 40mg Paris Marte MD Cardiology: C essation encouraged. Will plan low dose screening CT of the lungs April 15, 2022 T he Patient was reencouraged to stop smoking. Get patches August 29, 2022 Tried patch did not derive much benefit. Paris Marte MD Cardiology: a bnomral carotid us led to getting cta FINDINGS: R ight carotid system: The CCA, ICA, and ECA origin are patent, there is very m ild calcified and soft plaque within the right carotid bulb resulting in s tenosis of 30% or less. The distal ICA contributes to the gyplar-rs-Clkfaj. L eft carotid system: The CCA, ICA, and ECA origin are patent. There is c alcification within the distal ruled left common carotid artery proximal to t he bulb resulting in stenosis of approximately 30%. The proximal left i nternal carotid artery is tortuous. The distal ICA contribute to the c zjmpb-lx-Ukzqhk. V ertebrobasilar: Both vertebral arteries are patent contributing to the b asilar artery. I MPRESSION: N o hemodynamic significant stenosis, see above. O n asa and statin. Recommend CTA to evaluate his carotid vasculature. February 03, 2021 W il follow carotid ultrasounds M arch 2021 C arotids reviewed. MIld disease September 24, 2021 C arotids were OK Paris Marte MD Cardiology: E cho reviewed EF 60% Paris Marte MD Cardiology: T his has been a chronic issue. Unclear if cardiac or pulmonary. Most likely multifacorial. Last echo normal EF with no significant valvular abnormalities, but most likely diastolic dysfunction as some improvement with addition of lasix. He has known CAD, but no new issues in that regard. Have recommended PFT and low dose screening lung CT for further evaluation. Will also do home sleep study to r/o NO as contributing cause for his SOB April 15, 2022 H e had a PFT done that was abnormal. Sees Pulmonary Dr. Chamberlain August 29, 2022 B aseline COPD Paris Marte MD Cardiology: B P today: 96/60 P rior BP: 153/82 (04/15/2022) Labs Reviewed: C reat: 0.75 (04/08/2022) C hol: 261 (04/08/2022) HDL: 38 (04/08/2022) LDL: 187 MG/DL (CALC) (04/08/2022) T (04/08/2022) His updated medication list for this problem includes: Carvedilol 6.25 Mg Tablet (Carvedilol) ..... Take 1 tablet by mouth twice daily Lisinopril 10 Mg Tablet (Lisinopril) ..... Take 1 tablet by mouth once a day take 1 tablet by mouth daily Furosemide 20 Mg Tablet (Furosemide) ..... Take one tablets by mouth daily Paris Marte MD Cardiology:Added fis h oil today trig 222 H is updated medication list for this problem includes: Vascepa 1 Gram Capsule (Icosapent ethyl) ..... Take 2 capsule by mouth twice a day Zetia 10 Mg Tablet (Ezetimibe) ..... Take 1 tablet by mouth every day Rosuvastatin 40 Mg Tablet (Rosuvastatin) ..... 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 It is okay to use IV beta blockers calcium channel blockers nitrates and afterload reducing agents to maintain the aforementioned hemodynamics parameters. Tele monitoring and EKG should be done if the patient has arrhythmia during procedure. HE HAS A KNOWN HX OF HAND HARDENER OF RCA. HAS BEEN ON MED RX. OKAY TO HOLD ASA/PLAVIX FOR 3-5 DAYS PRE PROCEDURE AND THEN RESUME WHEN OKAY [facility] GI DOCTOR Paris Marte MD Cardiology: C essation encouraged. Will plan low dose screening CT of the lungs April 15, 2022 T he Patient was reencouraged to stop smoking. Get patches Paris Marte MD Cardiology: c arotid ct FINDINGS: R ight carotid system: The CCA, ICA, and ECA origin are patent, there is very m ild calcified and soft plaque within the right carotid bulb resulting in s tenosis of 30% or less. The distal ICA contributes to the oqcuax-so-Fraust. L eft carotid system: The CCA, ICA, and ECA origin are patent. There is c alcification within the distal ruled left common carotid artery proximal to t he bulb resulting in stenosis of approximately 30%. The proximal left i nternal carotid artery is tortuous. The distal ICA contribute to the c rdvkt-se-Vqhfls. V ertebrobasilar: Both vertebral arteries are patent contributing to the b asilar artery. I MPRESSION: N o hemodynamic significant stenosis, see above. February 03, 2021 W ill follow carotid ultrasound April 15, 2022 C ONCLUSIONS: 1 . Mild plaque with less than 50% stenosis of the internal carotid arteries bilaterally. 2 . Vertebral flow is antegrade bilaterally. 3 . Tortuous carotid arteries. E lectronically signed by Paris Marte MD on 05/05/2021 at 8:57 AM Paris Marte MD Cardiology: C HOL: 140 (04/15/2021) LDL: 74 MG/DL (CALC) (04/15/2021) HDL: 40 (04/15/2021) T (04/15/2021) His updated medication list for this problem includes: Rosuvastatin 20 Mg Tablet (Rosuvastatin) ..... Take 1 tablet by mouth once a day take 1 tablet daily April 15, 2022 C HOL levels are high will increase Crestor to 40mg Paris Marte MD Cardiology: T his has been a chronic issue. Unclear if cardiac or pulmonary. Most likely multifacorial. Last echo normal EF with no significant valvular abnormalities, but most likely diastolic dysfunction as some improvement with addition of lasix. He has known CAD, but no new issues in that regard. Have recommended PFT and low dose screening lung CT for further evaluation. Will also do home sleep study to r/o NO as contributing cause for his SOB April 15, 2022 H e had a PFT done that was abnormal. Sees Pulmonary Dr. 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 Will plan low dose screening CT of the lungs [facility] Cardiology:blood pre ssure controlled continue present regimen H is updated medication list for this problem includes: Lisinopril 10 Mg Tablet (Lisinopril) ..... Take 1 tablet by mouth daily Furosemide 20 Mg Tablet (Furosemide) ..... Take one tablets by mouth daily Carvedilol 6.25 Mg Tablet (Carvedilol) ..... Take 1 tablet by mouth twice daily [facility] Cardiology: H ad cath done HAND HARDENER RCA on Med[facility] otherwise stable [facility] Cardiology:This has been a chronic issue. Unclear if cardiac or pulmonary. Most likely multifacorial. Last echo normal EF with no significant valvular abnormalities, but most likely diastolic dysfunction as some improvement with addition of lasix. He has known CAD, but no new issues in that regard. Have recommended PFT and low dose screening lung CT for further evaluation. Will also do home sleep study to r/o NO as contributing cause for his SOB H is updated medication list for this problem includes: Lisinopril 10 Mg Tablet (Lisinopril) ..... Take 1 tablet by mouth daily Furosemide 20 Mg Tablet (Furosemide) ..... Take one tablets by mouth daily Carvedilol 6.25 Mg Tablet (Carvedilol) ..... Take 1 tablet by mouth twice daily Orders: 9 9215 HIGH 40-54min (CPT-84717) F VC - 63672 (98374) F RC - 64695 (87161) D LCO - 32247 (25359) A mbulatory Oximetry (CPT-64533) 6 minute walk test (CPT-54687) S pirometry (CPT-58001) C ounseling LDCT (CPT-G0296) L ow Dose Lung CT (CPT-G0297) S [facility] Study Home (CPT-89269) [facility] Cardiology:CHOL: 140 (04/15/2021) LDL: 74 MG/DL (CALC) (04/15/2021) HDL: 40 (04/15/2021) T (04/15/2021) His updated medication list for this problem includes: Rosuvastatin 20 Mg Tablet (Rosuvastatin) ..... Take 1 tablet by mouth once a day take 1 tablet daily Paris Marte MD Cardiology:BP at [facility] e pretty good, in the 130s systolic. Paris Marte MD Cardiology: a bnomral carotid us led to getting cta FINDINGS: R ight carotid system: The CCA, ICA, and ECA origin are patent, there is very m ild calcified and soft plaque within the right carotid bulb resulting in s tenosis of 30% or less. The distal ICA contributes to the vikctz-jw-Dliesp. L eft carotid system: The CCA, ICA, and ECA origin are patent. There is c alcification within the distal ruled left common carotid artery proximal to t he bulb resulting in stenosis of approximately 30%. The proximal left i nternal carotid artery is tortuous. The distal ICA contribute to the c btidw-bh-Guzlxd. V ertebrobasilar: Both vertebral arteries are patent contributing to the b asilar artery. I MPRESSION: N o hemodynamic significant stenosis, see above. O n asa and statin. Recommend CTA to evaluate his carotid vasculature. February 03, 2021 W il follow carotid ultrasounds M arch 2021 C arotids reviewed. 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 Take one tablets by mouth daily Carvedilol 6.25 Mg Tablet (Carvedilol) ..... Take 1 tablet by mouth twice daily Lisinopril 10 Mg Tablet (Lisinopril) ..... 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 Rare PVCs seen during stress portion of the exam. 2 . Abnormal perfusion imaging - see below. Technical quality of study is good. Left ventricle cavity size with stress is enlarged. 3 . The inferior wall has a severe perfusion abnormality defect. The perfusion defect is large in size. The defect has slight reversibility. 4 . Left Ventricular Ejection Fraction is 33 %. TID: 1.07. May 06, 2020 R isleaiewed options for proceeding with cath. Patient's understands that he may have an MN and may be fatal. REviewed with patient. HE at present does not want to proceed with cardiac cath. Aware of risks and consequences. This coincides with the reduction of EF with the prior echo. 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 The distal ICA contributes to the eejpmt-vu-Pudpie. L eft carotid system: The CCA, ICA, and ECA origin are patent. There is c alcification within the distal ruled left common carotid artery proximal to t he bulb resulting in stenosis of approximately 30%. The proximal left i nternal carotid artery is tortuous. The distal ICA contribute to the c sqyvg-ib-Yttczp. V ertebrobasilar: Both vertebral arteries are patent contributing to the b asilar artery. I MPRESSION: N o hemodynamic significant stenosis, see above. O n asa and statin. Recommend CTA to evaluate his carotid vasculature. February 03, 2021 W il follow carotid ultrasounds M arch 2, 2022 C arotids reviewed. MIld disease Sanjaya N Saheta MD Cardiology:Echo reviewed EF 60% Paris Marte MD Cardiology:4 PVcs no dimitrios on today's ekg will need to have him wear a monitor to see frequency of PVCs. Since he has CAD we are concerned. May need to do ischemic workup to evaluate LAD distribution. Paris Marte MD Cardiology: B P today: 146/72 P rior BP: 100/70 (02/03/2021) Labs Reviewed: C reat: 0.72 (04/15/2021) C hol: 140 (04/15/2021) HDL: 40 (04/15/2021) LDL: 74 MG/DL (CALC) (04/15/2021) T (04/15/2021) His updated medication list for this problem includes: Carvedilol 6.25 Mg Tablet (Carvedilol) ..... Take 1 tablet by mouth twice daily Lisinopril 10 Mg Tablet (Lisinopril) ..... 1 tablet once a day Paris Marte MD Cardiology: R educed EF on echo and nuclear stress test. Add beta isamar. Woudl add low dose PABLO-i as well for medical management with lisinopril 5mg daily. Will add aldactone 25mg once he tolerates these medciations. February 03, 2021 Natalie parisi doing well [facility] stable Paris Marte MD Cardiology: B P today: 100/70 P rior BP: 144/70 (10/30/2020) Labs Reviewed: C reat: 0.80 (09/24/2020) C hol: 176 (09/24/2020) HDL: 40 (09/24/2020) His updated medication list for this problem includes: Carvedilol 6.25 Mg Tablet (Carvedilol) ..... 1 tablet twice a day Lisinopril 10 Mg Tablet (Lisinopril) ..... 1 tablet once a day Paris Marte MD Cardiology:Increased crestor to 20mg for risk factor modificationCHOL: 176 (09/24/2020) HDL: 40 (09/24/2020) Paris Marte MD Cardiology: S braden nuc 04/30/20: 1 . Rare PVCs seen during stress portion of the exam. 2 . Abnormal perfusion imaging - see below. Technical quality of study is good. Left ventricle cavity size with stress is enlarged. 3 . The inferior wall has a severe perfusion abnormality defect. The perfusion defect is large in size. The defect has slight reversibility. 4 . Left Ventricular Ejection Fraction is 33 %. TID: 1.07. May 06, 2020 R iselaiewed options for proceeding with cath. Patient's understands that he may have an MN and may be fatal. REviewed with patient. HE at present does not want to proceed with cardiac cath. Aware of risks and consequences. This coincides with the reduction of EF with the prior echo. 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 The distal ICA contributes to the rzcmqq-nb-Knhrln. L eft carotid system: The CCA, ICA, and ECA origin are patent. There is c alcification within the distal ruled left common carotid artery proximal to t he bulb resulting in stenosis of approximately 30%. The proximal left i nternal carotid artery is tortuous. The distal ICA contribute to the c awlqf-gk-Utemzb. V ertebrobasilar: Both vertebral arteries are patent contributing to the b asilar artery. I MPRESSION: N o hemodynamic significant stenosis, see above. O n asa and statin. Recommend CTA to evaluate his carotid vasculature. February 03, 2021 W il follow carotid ultrasounds Paris Marte MD Cardiology: c arotid ct FINDINGS: R ight carotid system: The CCA, ICA, and ECA origin are patent, there is very m ild calcified and soft plaque within the right carotid bulb resulting in s tenosis of 30% or less. The distal ICA contributes to the wtjrst-sv-Bmmtbf. L eft carotid system: The CCA, ICA, and ECA origin are patent. There is c alcification within the distal ruled left common carotid artery proximal to t he bulb resulting in stenosis of approximately 30%. The proximal left i nternal carotid artery is tortuous. The distal ICA contribute to the c sbhct-ed-Bgfmaf. V ertebrobasilar: Both vertebral arteries are patent contributing to the b asilar artery. I MPRESSION: N o hemodynamic significant stenosis, see above. February 03, 2021 W ill follow carotid ultrasound Paris Marte MD Cardiology: c arotid ct FINDINGS: R ight carotid system: The CCA, ICA, and ECA origin are patent, there is very m ild calcified and soft plaque within the right carotid bulb resulting in s tenosis of 30% or less. The distal ICA contributes to the jziesg-zq-Kesiji. L eft carotid system: The CCA, ICA, and ECA origin are patent. There is c alcification within the distal ruled left common carotid artery proximal to t he bulb resulting in stenosis of approximately 30%. The proximal left i nternal carotid artery is tortuous. The distal ICA contribute to the c xphrm-yc-Mflkjk. V ertebrobasilar: Both vertebral arteries are patent contributing to the b asilar artery. I MPRESSION: N o hemodynamic significant stenosis, see above. Paris Marte MD Cardiology Paris Marte MD Cardiology Paris Marte MD Cardiology: w ill try giving asymbicort inhailer will get PFTs done Paris Marte MD Cardiology: S tress nuc 04/30/20: 1 . Rare PVCs seen during stress portion of the exam. 2 . Abnormal perfusion imaging - see below. Technical quality of study is good. Left ventricle cavity size with stress is enlarged. 3 . The inferior wall has a severe perfusion abnormality defect. The perfusion defect is large in size. The defect has slight reversibility. 4 . Left Ventricular Ejection Fraction is 33 %. TID: 1.07. May 06, 2020 R carrillowed options for proceeding with cath. Patient's understands that he may have an MN and may be fatal. REviewed with patient. HE at present does not want to proceed with cardiac cath. Aware of risks and consequences. This coincides with the reduction of EF with the prior echo. June 15, 2020 n o new CP has sob may be related to htn wll increase lisionpril to 10mg once daily September 23, 2020 w ill schedule him for a diagnostic cath right and left since his sob has not improved at all and he has abn stress Paris Marte MD Cardiology: H is updated medication list for this problem includes: Rosuvastatin Calcium 10 Mg Oral Tablet (Rosuvastatin calcium) ..... Take 1 tab daily Paris Marte MD Cardiology: A Dvised to quit smoking Paris Marte MD Cardiology:will try giving asymbicort inhailer will get PFTs done Paris Marte MD Cardiology:increase correg to 12.5 bid H is updated medication list for this problem includes: Carvedilol 6.25 Mg Tablet (Carvedilol) ..... 1 tablet twice a day Lisinopril 10 Mg Tablet (Lisinopril) ..... 1 tablet once a day Paris Marte MD Cardiology:carotid c t FINDINGS: R ight carotid system: The CCA, ICA, and ECA origin are patent, there is very m ild calcified and soft plaque within the right carotid bulb resulting in s tenosis of 30% or less. The distal ICA contributes to the hbpynu-jj-Wunzgj. L eft carotid system: The CCA, ICA, and ECA origin are patent. There is c alcification within the distal ruled left common carotid artery proximal to t he bulb resulting in stenosis of approximately 30%. The proximal left i nternal carotid artery is tortuous. The distal ICA contribute to the c ziccs-oa-Ozvekn. V ertebrobasilar: Both vertebral arteries are patent contributing to the b asilar artery. I MPRESSION: N o hemodynamic significant stenosis, see above. Paris Marte MD Cardiology follow up : N uclear EF and echo EF coincide. Most likely had significant coronary disease. At present refuses to proceed with cardiac cath. Reviwed with him regarding lifevest and mayela risk of suddenc ardiac . Unsure if he wants to proceed with getting the lifeveast. Aware of consequences. June 15, 2020 d id not want ot get a cath done and reveiwed issues again will increase medrx Paris Marte MD Cardiology follow up : A Dvised to quit smoking Paris Marte MD Cardiology follow up : R educed EF on echo and nuclear stress test. Add beta isamar. Woudl add low dose PABLO-i as well for medical management with lisinopril 5mg daily. Will add aldactone 25mg once he tolerates these medciations. Paris Marte MD Cardiology follow up :increased lisionpril to 10mg qd B P today: 170/80 P rior BP: 162/90 (05/06/2020) His updated medication list for this problem includes: Carvedilol 6.25 Mg Oral Tablet (Carvedilol) ..... One tab. twice daily Lisinopril 10 Mg Oral Tablet (Lisinopril) ..... One tab. daily Aspirin 81 81 Mg Oral Tablet Delayed Release (Aspirin) ..... One tab by mouth daily Paris Marte MD Cardiology follow up : Sadi estes 04/30/20: 1 . Rare PVCs seen during stress portion of the exam. 2 . Abnormal perfusion imaging - see below. Technical quality of study is good. Left ventricle cavity size with stress is enlarged. 3 . The inferior wall has a severe perfusion abnormality defect. The perfusion defect is large in size. The defect has slight reversibility. 4 . Left Ventricular Ejection Fraction is 33 %. TID: 1.07. May 06, 2020 R iselaiewed options for proceeding with cath. Patient's understands that he may have an MN and may be fatal. REviewed with patient. HE at present does not want to proceed with cardiac cath. Aware of risks and consequences. This coincides with the reduction of EF with the prior echo. June 15, 2020 n o new CP has sob may be related to htn wll increase lisionpril to 10mg qd Paris Marte MD Cardiology follow up :FINDINGS: R ight carotid system: The CCA, ICA, and ECA origin are patent, there is very m ild calcified and soft plaque within the right carotid bulb resulting in s tenosis of 30% or less. The distal ICA contributes to the apmpad-vi-Mwsntu. L eft carotid system: The CCA, ICA, and ECA origin are patent. There is c alcification within the distal ruled left common carotid artery proximal to t he bulb resulting in stenosis of approximately 30%. The proximal left i nternal carotid artery is tortuous. The distal ICA contribute to the c tuyvx-er-Bonrlj. Vertebrobasilar: Both vertebral arteries are patent contributing to the b asilar artery. I MPRESSION: N o hemodynamic significant stenosis, see above. Paris Marte MD Cardiology follow up :abnomral carotid us led to getting cta FINDINGS: R ight carotid system: The CCA, ICA, and ECA origin are patent, there is very m ild calcified and soft plaque within the right carotid bulb resulting in s tenosis of 30% or less. The distal ICA contributes to the khopni-wk-Kjauem. L eft carotid system: The CCA, ICA, and ECA origin are patent. There is c alcification within the distal ruled left common carotid artery proximal to t he bulb resulting in stenosis of approximately 30%. The proximal left i nternal carotid artery is tortuous. The distal ICA contribute to the c wvzsi-gs-Eswrpm. V ertebrobasilar: Both vertebral arteries are patent contributing to the b asilar artery. I MPRESSION: N o hemodynamic significant stenosis, see above. O n asa and statin. Recommend CTA to evaluate his carotid vasculature. Paris Marte MD Cardiology Follow up :On asa and statin. Recommend CTA to evaluate his carotid vasculature. Paris Marte MD Cardiology Follow up :Nuclear EF and echo EF coincide. Most likely had significant coronary disease. At present refuses to proceed with cardiac cath. Reviwed with him regarding lifevest and mayela risk of suddenc ardiac . Unsure if he wants to proceed with getting the lifeveast. Aware of consequences. Paris Marte MD Cardiology Follow up :Reduced EF on echo and nuclear stress test. Add beta isamar. Woudl add low dose PABLO-i as well for medical management with lisinopril 5mg daily. Will add aldactone 25mg once he tolerates these medciations. Paris Marte MD Cardiology Follow up :Recommend adding coreg 6.25mg BID. Having PVCs and tachycardia. H R is 128. B P today: 162/90 P rior BP: 167/97 (04/17/2020) His updated medication list for this problem includes: Aspirin 81 81 Mg Oral Tablet Delayed Release (Aspirin) ..... One tab by mouth daily Paris Marte MD Cardiology Follow up :CAROTID CONCLUSIONS 05/06/20: 1 . 50 - 69% stenosis of the right ICA. 2 . <50% stenosis of the left ICA. 3 . Vertebral flow is antegrade bilaterally. Already has had a stroke. Would get a CTA to evaluate severity of the SAUL lesion. 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 Paris Marte MD Cardiology Follow up :Stress nuc 04/30/20: 1 . Rare PVCs seen during stress portion of the exam. 2 . Abnormal perfusion imaging - see below. Technical quality of study is good. Left ventricle cavity size with stress is enlarged. 3 . The inferior wall has a severe perfusion abnormality defect. The perfusion defect is large in size. The defect has slight reversibility. 4 . Left Ventricular Ejection Fraction is 33 %. TID: 1.07. May 06, 2020 R iselaiewed options for proceeding with cath. Patient's understands that he may have an MN and may be fatal. REviewed with patient. HE at present does not want to proceed with cardiac cath. Aware of risks and consequences. This coincides with the reduction of EF with the prior echo. Paris Marte MD Cardiology New Patie nt :check nuc stress test. start ASA 81 mg daily. Paris Marte MD Cardiology New Patie nt :was on lisinopril but stopped taking the medication 1 year ago Paris Marte MD Cardiology New Patie nt : H is updated medication list for this problem includes: Rosuvastatin Calcium 10 Mg Oral Tablet (Rosuvastatin calcium) ..... Take 1 tab daily Paris Marte MD Cardiology New Patient :ADvised to quit smoking Paris Marte MD Cardiology New Patient :Check nu c stress test Paris Marte MD Date Name Stress Echo Carotid Duplex Bilat eral EKG COMPREHENSIVE METABO LIC PANEL, W/EGFR LIPID PANEL RPM Enroll: BP HEPATIC FUNCTION MA EL LIPID PANEL LIPID PANEL COMPREHENSIVE METABO LIC PANEL, W/EGFR BASIC METABOLIC PANE L W/EGFR CBC (INCLUDES DIFF/P LT) LIPID PANEL Sleep Study Home Low Dose Lung CT Spirometry 6 minute walk test Ambulatory Oximetry DLCO - 28126 FRC - 33172 FVC - 35034 Holter Monitor 48 hr LIPID PANEL COMPREHENSIVE METABO LIC PANEL, W/EGFR Carotid Duplex Bilat eral Complete Echo PROTHROMBIN TIME WIT H INR LIPID PANEL CBC (INCLUDES DIFF/P LT) BASIC METABOLIC PANE L W/EGFR Cardiac Cath - L/R- [facility] Cardiac Cath - L/R- [facility] DLCO - 21869 FRC - 73587 FVC - 78395 CT Angio, Carotids Carotid Duplex Bilat eral Stress Exercise Card iolite HISTORY OF PROCEDURES Procedure Date Procedure Name Provider Procedure Notes S tatus Complex e/m visit add on Paris Marte MD completed Tobacco user + tobac co cessation intervention Paris Marte MD completed EKG Paris Marte MD compl eted EKG Paris Marte MD compl eted EKG Paris Marte MD compl eted FRC - 71827 Paris Marte MD comp leted Spirometry Paris Marte MD compl eted FVC / MVV with bronchodilator - 09221 Paris Marte MD completed BLOOD COUNT HEMOGLOBIN Paris Marte MD completed SpO2 w/o 6min walk/titration Paris Marte MD completed SVC - 63547 Paris Marte MD comp leted DLCO - 19340 Paris Marte MD com pleted Counseling LDCT Paris Marte MD completed EKG Paris Marte MD compl eted EKG Paris Marte MD compl eted EKG Paris Marte MD compl eted EKG Paris Marte MD compl eted EKG Paris Maret MD compl eted EKG Paris Marte MD compl eted EKG Paris Marte MD compl eted EKG Paris Marte MD compl eted EKG Paris Marte MD compl eted
--- OUTSIDE RECORDS SUMMARY | 2024-04-16 11:03 | XMS_ITS | Data Portability ---
Author Organization [place] - [facility] [place], Main Office Address [address] [place] [address] Care Team Providers Care Hydrological Technical Officer Name Role Phone COLE LEIGH Primary Care Provider Unavailabl e Assessment Encounter Date Assessment Date Assessment LastModified by Organization Details LastModified Time 06/09/2022 06/09/2022 Shingrix to come from Pharmacy. Not available 06/09/2022 09:21:25 12/09/2022 12/09/2022 Shingrix to come from Pharmacy. 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 Not available 12/09/2022 10:00:10 03/09/2023 03/09/2023 Assessment: Nicotine smoke: 1 ppd 1970-present (quit 1 year in between) = 50 years Very severe COPD, 1 Lpm nocturnal O2 Plan: The following were reviewed and explained to the patient: Neck CT 05/22/20 no carotid stenosis PFT 12/30/21 FEV1 0.62 L (19%), BD 160 mL = 34% PFT 03/09/23 FEV1 0.75 L (24%) [facility] lab tests 01/10/[address] 01/18/22 2 cm descending thoracic aortic aneurysm, 5.3 cm simple right renal cyst Chest CT 02/15/23 emphysema, no nodules 6MW 01/06/22 pulse oximeter reading dropped from 94% to 89% with exercise. Overnight oximetry on room air 03/03/22 O2 <89% 6 hours 6 minutes Patient follows up with his vamp marker Dr. Paris Marte on 04/16/22 regarding the descending thoracic aortic aneurysm. Nicotine cessation counseling provided. Hardy for quitting nicotine include getting ready, getting support and encouragement, learning new skills and behaviors and being prepared to handle slips. Tips for dealing with cravings provided. Prevention of subsequent illnesses from nicotine addiction discussed. Comorbidities include but are not limited to hypertension, cerebrovascular disease, coronary heart disease, congestive heart failure, hyperlipidemia, COPD/asthma, peptic ulcer disease, esophagitis/gastri tis, and osteoporosis. Therapy options offered include: Quitting by total abstinence Receiving nicotine replacement therapy Undergoing hypnosis Filling a bupropion or varenicline prescription Enrolling in Quit For Life program Registering at [email or web address] Making a call to 2-478-CVVW-NOW ( ). A strong, clear, personalized message was given to the patient to quit smoking. The patient was urged to set a quit date. We discussed patient's barriers to quitting and I will be of assistance when patient is ready to quit. I encouraged patient to inform friends and family of plans to quit with a request for support. I encouraged the patient to remove all cigarettes from the environment. We reviewed any previous quit attempts and lessons learned from them. I encouraged total abstinence from smoking and advised the patient that drinking alcohol and/or associating with other smokers are associated with failure or relapse. Patient can enroll in [facility]'s smoking cessation class through Eliana Joseph RN at . Enrollment is free and classes are held every monday of the month from 1:30 pm to 2:30 pm at the conference room next to the cafeteria on the ground floor. He quit by total abstinence 4 times, amounting to a year. The [place] Preventive Services Task Force (USPSTF) recommends annual screening for lung cancer with low-dose computed tomography (LDCT) in: 1. adults aged 50 to 80 years who have a 20 pack-year smoking history and 2. current smokers or smokers who have quit within the past 15 years. Screening should be discontinued once a person has not smoked for 15 years or develops a health problem that substantially limits life expectancy or the ability or willingness to have curative lung surgery. Repeat chest CT and PFT one week before return. One liter per minute of O2 for nocturnal use ordered. Pulmonary rehabilitation may be included in the management of patients with chronic obstructive pulmonary disease (COPD). For respiratory diseases different from COPD, there have been no formal statements regarding patient selection. Pulmonary rehabilitation consists of assessment, exercise, education, and emotional support. It covers the goals of rehabilitation, the techniques of breathing, the necessity of nicotine cessation, the strategies to deal with panic attacks, the rationale of pulmonary medications, and the importance of nutrition. As the patient learns to live with his pulmonary condition through exercise and education, the patient will regain confidence with his abilities and feel improvement in his overall quality of life. The patient's FEV1 is 24%. The patient will hold off on pulmonary rehabilitaiton due to the presence of the thoracic aneurysm. General concepts of pulmonary rehabilitation were explained. Continue albuterol HFA 1 puff every 4 hours as needed. Patient could not afford the Breztri 160/9/4.8 mcg 2 puffs BID. Continue Symbicort HFA 160/4.5 mcg 2 puffs BID. Gargle after use. Continue Spiriva Respimat 2.5 mcg 2 puffs daily. The patient does not know how to accurately administer the inhalers. Today, the patient was shown how to take these medications. The proper technique for delivering these medications was instructed. The patient expressed a clear understanding and demonstrated back how to use these medications. Without the proper technique, the patient will not reap the benefits of these medications as the contents will not reach the lower airways as intended to be. Adherence to therapy is advocated. Nonadherence may lead to treatment failure, further progression of the condition, and other complications. Hospitals admissions are often the result of individuals not taking prescription medications accurately. Alternatively, greater adherence to medication regimens have shown to lower rates of hospitalization and decrease total medical costs in patients with chronic medical conditions. Advocated influenza vaccination annually and pneumonia vaccination ELDER. Advocated weight loss through diet and exercise. Patient's ideal body weight according to height and gender is up to 180 lbs. Encouraged patient to adjust caloric intake to maintain/achieve ideal body weight, emphasizing on fruits, vegetables, whole grains, and fat-free or low-fat products. These include lean meats, poultry, fish, beans, eggs, and nuts and foods that are low in saturated fats, trans-fats, cholesterol, salt (sodium), and glycemic index. Stressed the importance of regular exercise up to the patient's capacity limits. In this case, we recommend 20 min daily walking, 2 days a week of resistance training. Patient to monitor BP daily and bring records to PCP for further management. Follow-up: 1 year, March 2024 [email or web address] Not available 03/09/2023 11:29:21 Plan of Treatment Reminders Order Date Submit Date Provider Last Modified By Organization Details Last Modified Time Details Appointments None recorded. Lab PSA, total, serum or plasma 2022 023 [email or web address] [facility] (Lab), [address] [place], [address], 3 08:58:27 PSA, serum or plasma [address] (Lab), [address] [place], [address], 4 08:28:20 [email or web address] obin, total, blood [address] (Lab), [address] [place], [address], 4 08:24:49 Referral None recorded. Procedures None recorded. Surgeries None recorded. Imaging LDCT, chest, for lung cancer screening - Nicotine smoke: 1 ppd 1970-presen t (quit 1 year in between) = 50 years [email or web address] ([facility]), [address] [place], [address], 4 12:59:56 Medication Orders albuterol sulfate HFA 90 mcg/actuati on aerosol inhaler 2023 024 [id number], [address], [place], [id number], 4 11:30:40 Symbicort 160 mcg-4.5 mcg/actuati on HFA aerosol inhaler 2023 024 [facility] #[id number], [address], [place], [id number], 4 11:30:48 Spiriva Respimat 2.5 mcg/actuati on solution for inhalation 2023 024 [facility][id number], [address] [facility], [place], [place], [id number], 11:30:39 Farxiga 5 mg tablet 2023 024 [facility] #[id number], [address], [place], [id number], 09:33:07 Patient TargetsNo targets recorded. Patient Instructions Encounter Date Encounter Id Patient Instructions Last Modified By Organization Details Last Modified Time 06/09/2022 [id number] FU in 6 mo for f u lipid, htn, copd, tobacco, labs, hx cva, aneurysm. Not available 06/09/2022 09:30:04 12/09/2022 [id number] dementia rating scale-2* Not available 12/09/2022 10:01:33 alcohol misuse* Not available 12/09/2022 10:01:32 depression screening* Not available 12/09/2022 10:01:32 multi-dimensiona l health assessment questionnaire* Not available 12/09/2022 10:01:33 Personalized a lt Plan and Screening Recommendations Advance Directives - Do you have one? Yes Advance Directives - Do we have your advance directive on file in your health record? No, please bring in a copy at your earliest convenience Primary Prevention/Interven tion (prevents or decreases the chance of common diseases from occurring) Smoking Risk: Smoker Refer to attached smoking cessation handouts Refer to attached handouts and prescription will be sent to pharmacy Continue to consider stopping smoking and call if we can assist you Alcohol Misuse Screening: Negative Weight: Appropriate Physical activity: Need more exercise/physical activity minimum of 10-20 minutes of activity that causes mild breathlessness/day Nutrition: Good Fall Risk (screened today): Low Vaccines Pneumococcal: Ordered Recommended today Recommended today, but you have declined No further needed Influenza: Ordered Recommended today Chronic Disease Risks Stroke: I have no recommendations Act vanessa diagnosis, Continue current treatment plan Heart Attack: Low risk Intermediate Risk Clogging of the Arteries: Low risk Intermediate Risk Diabetes: Low Risk I have no recommendations Secondary Prevention/Interven tion (detects treatable diseases before they may cause symptoms, disability, or ) Prostate Cancer Screening: No digital rectal exam screening necessary Colon Cancer Screening: Colonoscopy In: Ordered Recomme nded Recommended today, but you have declined Date Screening Last Performed: Eye Disease Screening: Dementia Risk: Low I have no recommendations Depression Screening: Negative [email or web address] Not available 12/08/2022 12:13:31 FU annually afte r 12/10/23 for MAWV. Not available 12/09/2022 09:41:29 03/09/2023 [id number] complete PFT w/ post bronchodilator spirometry* Not available 02/19/2024 12:59:43 Reason for Referral None Reported. Results Created Date Observation Date Name Description Value Unit Range Abnormal Flag Note LastModifiedBy Organization Detail LastModifiedTime 07/30/1907/29/2022 PSA, TOTAL PSA, total 0.36 NG/mL 0.00-4 .00 Not Available [facility] ([facility]) [address] [place], [address], 07/29/2022 12:03:03 08/31/1908/30/2022 CT, angio gram, chest + abdom en + pelvi s, w/ contr ast No observ ation record ed. [address], [address], 08/30/2022 21:02:24 09/03/19 23 09/02/2022 XR, kidne y + urete r + bladd er No observ ation record ed. [address], [address], 09/06/2022 12:40:53 09/03/19 23 09/02/2022 XR, chest No observ ation record ed. [address], [address], 09/06/2022 12:41:27 09/03/19 23 09/02/2022 XR, abdom en No observ ation record ed. [email or web address] [address] [facility] [address], [place], [address], 09/06/2022 12:42:03 09/05/19 23 09/04/2022 XR, chest No observ ation record ed. [address] [facility] [address], [place], [address], 09/06/2022 12:42:52 02/16/20 23 02/15/2023 LDCT, chest , for lung cance r scree kristin No observ ation record ed. [address] [place], [address], 02/16/2023 09:16:27 02/16/20 23 02/15/2023 LDCT, chest , for lung cance r scree kristin No observ ation record ed. [address] ([facility]) [address] [place], [address], 02/15/2023 17:37:18 03/10/19 24 03/09/2023 compl ete PFT w/ post [facility] hodil ator mel metry * No observ ation record ed. [facility] ([facility]) [address] [place], [address], 03/10/2023 18:39:21 Result Notes None recorded. Problems Name Problem SNOMED Code Status Onset Date Resolution Date Notes Provider Name and Address Organization Details Recorded Time Hearing loss 91315931 Active 2018 Not Available [facility] 3 06:45:37 Cerebrovascul ar accident 225467211 Active 2016 Not Available [facility] 3 06:45:37 Hypertensive disorder 80536081 Active 2016 Not Available [facility] 3 06:45:38 Aneurysm of thoracic aorta 806380416 Active 2021 Not Available [facility] 3 06:45:38 Hyperlipidemi a 48192734 Active 2018 Not Available [facility] 3 06:45:38 Cardiomyopath y 99648007 Active 2021 Not Available [facility] 3 06:45:38 Severe chronic obstructive pulmonary disease 120067837 Active 2022 Peace Castaneda MA null, [place] [employer] [facility] [employer] [facility] 3 14:37:06 Nicotine dependence 61717901 Active 2022 Peace Castaneda MA null, [employer] [facility] [employer] [facility] 3 14:37:14 Prediabetes 227124662 Active 2023 EJ Garcia [address] [facility], [facility] [address], [place], [address] , 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 Procedures Surgical History Date Name Laterality Status Provider Name and Address Organization Details Recorded Time 12/10/19 23 Medicare Wellness CPT Code, subsequent completed Ruth Vega RN [facility] [employer] [facility] 12/08/2022 12:09:40 08/31/19 23 Appendectomy completed Gaby Curry NP [address] [employer], [address], [place], [address], [facility] [employer] [facility] 08/30/2022 20:16:30 Imaging Results Imaging Date Name Status LastModified by Organization Details LastModified Time 08/30/2022 CT, angiogram, chest + abdomen + pelvis, w/ contrast completed [address] [place] [address], [address], 08/30/2022 21:02:24 09/02/2022 XR, kidney + ureter + bladder completed [address], [address], 09/06/2022 12:40:53 09/02/2022 XR, chest completed [address] [address], [place], [address], 09/06/2022 12:41:27 09/02/2022 XR, abdomen completed [address], [address], 09/06/2022 12:42:03 09/04/2022 XR, chest completed [address], [address], 09/06/2022 12:42:52 02/15/2023 LDCT, chest, for lung cancer screening completed [address] [place], [address], 02/16/2023 09:16:27 02/15/2023 LDCT, chest, for lung cancer screening completed [address] ([facility]) [address] [place], [address], 02/15/2023 17:37:18 03/09/2023 complete PFT w/ post bronchodilator spirometry* completed [facility] ([facility]) [address] [place], [address], 03/10/2023 18:39:21 Procedure Notes None recorded. Medical Equipment None Reported. Allergies No known drug allergies Medications Name Sig Start Date Stop Date Status Note LastModified by Organization Details LastModified Time cyclobenza iker 10 mg tablet Take 1 tablet 3 times a day by oral route. active Not Available Not Available No t Available carvedilol 6.25 mg tablet TAKE 1 TABLET BY MOUTH TWICE DAILY active Not Available Not Available No t Available atorvastat in 20 mg tablet TAKE 1 TABLET NIGHTLY active Not Available Not Available No t Available hydrocodon e 5 mg-acetami nophen 325 mg tablet TAKE 1 TABLET BY MOUTH EVERY 4 HOURS NEEDED. 12/09 completed Not Available Not Available Not Available carvedilol 3.125 mg tablet 1 tab po bid 03/19 completed Not Available Not Available Not Available tamsulosin 0.4 mg capsule Take 1 capsule every day by oral route. 07/25 completed Not Available Not Available Not Available lisinopril 10 mg tablet TAKE 1 TABLET BY MOUTH EVERY DAY active Not Available Not Available No t Available nicotine 21 mg/24 hr daily transderma l patch APPLY 1 PATCH TOPICALL Y TO THE SKIN EVERY DAY 12/09 completed Not Available Not Available Not Available nitroglyce rin 0.4 mg sublingual tablet 12/07 completed Not Available Not Available Not Available gabapentin 300 mg capsule TAKE 1 CAPSULE BY MOUTH NIGHTLY 03/19 completed Not Available Not Available Not Available lisinopril 5 mg tablet TAKE 1 TABLET BY MOUTH DAILY 07/14 completed Not Available Not Available Not Available hydrochlor othiazide 25 mg tablet TK 1 T PO QD 08/19 completed Not Available Not Available Not Available furosemide 20 mg tablet TAKE 1 TABLET BY MOUTH DAILY active Not Available Not Available No t Available albuterol sulfate HFA 90 mcg/actuat ion aerosol inhaler INHALE 1 PUFF BY MOUTH EVERY 4 HOURS NEEDED active Not Available Not Available No t Available lisinopril 2.5 mg tablet active Not Available Not Available Not Available finasterid e 5 mg tablet Take 1 tablet every day by oral route. 07/25 completed Not Available Not Available Not Available Asprin Ec Low Dose 81 mg tablet,del ayed release Take 1 tablet every day by oral route. 01/06 completed Not Available Not Available Not Available ezetimibe 10 mg tablet TAKE 1 TABLET BY MOUTH EVERY DAY active Not Available Not Available No t Available rosuvastat in 10 mg tablet TAKE 1 TABLET BY MOUTH EVERY NIGHT 07/13 completed Not Available Not Available Not Available rosuvastat in 20 mg tablet TAKE 1 TABLET BY MOUTH EVERY DAY 06/09 completed Not Available Not Available Not Available rosuvastat in 40 mg tablet TAKE 1 TABLET BY MOUTH EVERY NIGHT active Not Available Not Available No t Available Easprin 375mg 07/25 completed Not Available Not Available Not Available Symbicort 160 mcg-4.5 mcg/actuat ion HFA aerosol inhaler INHALE 2 PUFFS BY MOUTH TWICE DAILY 2023 active Not Available Not Available Not Avai lable Symbicort 80 mcg-4.5 mcg/actuat ion HFA aerosol inhaler INHALE 2 PUFFS BY MOUTH TWICE DAILY DIRECTED 07/24 completed Not Available Not Available Not Available icosapent ethyl 1 gram capsule TAKE 2 CAPSULES BY MOUTH TWICE DAILY 03/09 completed Not Available Not Available Not Available Farxiga 5 mg tablet TAKE 1 TABLET BY MOUTH EVERY DAY DIRECTED 2023 active Not Available Not Available Not Avai lable Spiriva Respimat 2.5 mcg/actuat ion solution for inhalation INHALE 2 PUFFS BY MOUTH EVERY DAY active Not Available Not Available No t Available Fluvirin (PF) 45 mcg (15 mcg x 3)/0.5 mL intramuscu lar syringe active Not Available Not Available Not Available Breztri Aerosphere 160 mcg-9mcg-4 .8mcg/actu ation HFA aerosol inhaler Inhale 2 puffs twice a day by inhalati on route. 01/24 completed Gargle after use Not Available Not Available Not Available Vitals Date Recorded Body height Body mass index (BMI) Body weight Body temperature Heart rate Respiratory rate Oxygen saturation Oxygen saturation in Arterial blood by Pulse oximetry Pain severity - 0-10 verbal numeric rating [Score] - Reported Systolic blood pressure Diastolic blood pressure Provider Name and Address Organization Details Last Updated DateTime 3 177.8 cm 27.6 kg/m2 71828.0 9 g 96.9 [degF] 101 /min 20 /min 94 % 94 % 0 118 mm[Hg] 64 mm[Hg] ROBERTO CARLOS Villatoro [facility] [employer] 3 09:06:41 Date Recorded Body height Body mass index (BMI) Body weight Body temperature Heart rate Respiratory rate Oxygen saturation Oxygen saturation in Arterial blood by Pulse oximetry Pain severity - 0-10 verbal numeric rating [Score] - Reported Systolic blood pressure Diastolic blood pressure Provider Name and Address Organization Details Last Updated DateTime 3 177.8 cm 26.9 kg/m2 49715.8 7 g 95.4 [degF] 95 /min 24 /min 95 % 95 % 0 140 mm[Hg] 80 mm[Hg] ROBERTO CARLOS Villatoro [facility] 3 09:32:10 Date Recorded Body height Body mass index (BMI) Body weight Body temperature Heart rate Systolic blood pressure Diastolic blood pressure Provider Name and Address Organization Details Last Updated DateTime 4 177.8 cm 27.7 kg/m2 84094.3 3 g 97.9 [degF] 90 /min 122 mm[Hg] 64 mm[Hg] Peace Castaneda MA [facility] 4 10:51:09 Date Recorded Oxygen saturation Oxygen saturation in Arterial blood by Pulse oximetry Heart rate Respiratory rate Provider Name and Address Organization Details Last Updated DateTime 03/09/2023 93 % 93 % 90 /min 22 /min Brian Chamberlain MD [address] [place] [address], [address], [facility] 4 11:36:28 Date Recorded Body height Body mass index (BMI) Body weight Body temperature Heart rate Oxygen saturation Oxygen saturation in Arterial blood by Pulse oximetry Pain severity - 0-10 verbal numeric rating [Score] - Reported Respiratory rate Systolic blood pressure Diastolic blood pressure Provider Name and Address Organization Details Last Updated DateTime 4 177.8 cm 28.3 kg/m2 78226.4 g 95.1 [degF] 104 /min 92 % 92 % 0 24 /min 132 mm[Hg] 70 mm[Hg] Gaby Coles RN [facility] 4 10:01:30 Date Recorded Body height Body mass index (BMI) Body weight Body temperature Heart rate Respiratory rate Oxygen saturation Oxygen saturation in Arterial blood by Pulse oximetry Pain severity - 0-10 verbal numeric rating [Score] - Reported Systolic blood pressure Diastolic blood pressure Provider Name and Address Organization Details Last Updated DateTime 4 177.8 cm 28.1 kg/m2 35491.1 5 g 96.6 [degF] 105 /min 20 /min 91 % 91 % 0 142 mm[Hg] 64 mm[Hg] Gaby Coles RN [facility] 4 08:57:00 Social History Question Answer Notes LastModified by Organization Details LastModified Time Tobacco Smoking Status Current Every Day Smoker Not Available [facility] 05/04/2022 06:39:25 Do You Have An Advance Directive? Yes [id number] Information not available 05/04/2022 What Is Your Level Of Alcohol Consumption? Occasional [id number] Information not available 05/04/2022 Are You Blind Or Do You Have Difficulty Seeing? No Glasses [id number] Information not available 05/04/2022 Is Blood Transfusion Acceptable In An Emergency? Yes Information not available 06/09/2022 What Is Your Level Of Caffeine Consumption? Occasional [id number] Information not available 05/04/2022 What Is Your Code Status? Full Code [id number] Information not available 05/04/2022 In The 14 Days Before Symptom Onset, Have You Had Close Contact With A Laboratory-confi rmed COVID-19 While That Case Was Ill? No [id number] Information not available 05/04/2022 In The 14 Days Before Symptom Onset, Have You Had Close Contact With A Person Who Is Under Investigation For COVID-19 While That Person Was Ill? No [id number] Information not available 05/04/2022 Are You Deaf Or Do You Have Serious Difficulty Hearing? Yes Hearing Aides Both [id number] Information not available 05/04/2022 What Type Of Diet Are You Following? REGULAR [id number].[id number] [id number] Information not available 05/04/2022 Do You Have An Electrostatic Air Filter? No [id number] [id number] Information not available 05/04/2022 What Is Your Occupation? Retired [id number].[id number] [id number] Information not available 05/04/2022 Have There Been Any Changes To Your Family Or Social Situation? No MIGRATION.[id number] [id number] Information not available 05/04/2022 What Is The Fluoride Status Of Your Home? Fluoridated MIGRATION.[id number] [id number] Information not available 05/04/2022 Do You Have A Humidifier? No [email or web address].[id number] [id number] Information not available 05/04/2022 Do You Use Insect Repellent Routinely? No Not Usually Outside [id number].[id number] [id number] Information not available 05/04/2022 Where Do You Live? [facility] [id number] Information not available 05/04/2022 Advance Directive- Providers Has Reviewed Directive And Consents To Follow Them (insert Provider Name With Any Objectives In Notes Field) Yes Information not available 12/09/2022 Presence Of Domestic Violence No Information not available 12/09/2022 Guns Present In The Home? Yes Information not available 12/09/2022 Are You Able To Care For Yourself? Yes Information not available 12/09/2022 Are You Blind Or Do Yo Have Difficulty Seeing? Yes Wears Glasses Information not available 12/09/2022 Are You Deaf Or Do You Have Serious Difficulty Hearing? Yes Has Hearing Aids, But Doesn't Wear Them Information not available 12/09/2022 General Stress Level? Low Information not available 12/09/2022 Live Alone Of With Others? With Others Information not available 12/09/2022 Do You Have A Medical Power Of [employer] Worker? Yes [id number] Information not available 05/04/2022 Do You Have Moisture Problems In Your Home? No MIGRATION.[id number] [id number] Information not available 05/04/2022 What Was The Date Of Your Most Recent Tobacco Screening? 03/09/2023 Information not available 03/09/2023 How Many Children Do You Have? 4 Information not available 06/09/2022 Do You Have Any Pets? Yes [id number] [id number] Information not available 05/04/2022 What Is Your Relationship Status? MIGRATION.0301 [id number] Information not available 05/04/2022 Do You Use Your Seat Belt Or Car Seat Routinely? Yes Information not available 06/09/2022 Do You Have Smoke And Carbon Monoxide Detectors In Your Home? Yes MIGRATION.[id number] [id number] Information not available 05/04/2022 Are You Passively Exposed To Smoke? Yes MIGRATION.0301 [id number] Information not available 05/04/2022 Are There Any Smokers In Your House? Yes MIGRATION.0301 [id number] Information not available 05/04/2022 How Much Tobacco Do You Smoke? 1 PPD 50 Years Information not available 03/09/2023 Do You Participate In Social Media? No MIGRATION.0301 [id number] Information not available 05/04/2022 Do You Feel Stressed (tense, Restless, Nervous, Or Anxious, Or Unable To Sleep At Night)? [id number] MIGRATION.030 [id number] Information not available 05/04/2022 Do You Use Any Illicit Or Recreational Drugs? No MIGRATION.0301 [id number] Information not available 05/04/2022 Do You Use Sunscreen Routinely? No MIGRATION.0301 [id number] Information not available 05/04/2022 Have You Recently Traveled Abroad? No MIGRATION.0301 [id number] Information not available 05/04/2022 Are You Currently In School? No MIGRATION.0301 [id number] Information not available 05/04/2022 Sex: Male Functional Status Question Answer Note LastModified by Organizat ion Details LastModified Time Do you have difficulty walking or climbing stairs? No [id number] Information not available 05/04/2022 Do you have transportation difficulties? No MIGRATION.[id number] 026 Information not available 05/04/2022 Are you able to walk? YESWOREST [id number].[id number] 026 Information not available 05/04/2022 Do you have difficulty doing errands alone? No MIGRATION.[id number] 026 Information not available 05/04/2022 Are you able to care for yourself? No [id number] 026 Information not available 05/04/2022 Do you have difficulty dressing or bathing? No [id number].[id number] 026 Information not available 05/04/2022 What is your exercise level? None [id number] 026 Information not available 05/04/2022 Mental Status Question Answer Note LastModified by Organizat ion Details LastModified Time Do you have difficulty concentrating, remembering or making decisions? No [id number] Information not available 05/04/2022 Family History Relationship Description Onset Age of this Age Resolved Age Notes LastModified by Organization Details LastModified Time Father No current problems or disability [id number] Not available 05/04/2022 06:39:57 Mother No current problems or disability MIGRATION.433 [id number] Not available 05/04/2022 06:39:57 Medical History Condition Response HYPERTENSION Y ANEURYSM Y STROKE/TIA Y HIGH CHOLESTEROL / HYPERLIPIDEMIA Y ASTHMA Y Immunizations Vaccine Type Date Status Note Provider Nam alycia and Address Organization Details Recorded Time pneumococcal polysaccharide PPV23 3 completed Gaby Coles RN null, [facility] 06/09/2022 09:54:56 Influenza, high-dose, quadrivalent, PF 3 completed ROBERTO CARLOS Villatoro, [facility] 12/09/2022 10:14:16 SARS-COV-2 (COVID-19) vaccine, UNSPECIFIED 1 completed Not Available [facility] 05/04/2022 06:51:56 SARS-COV-2 (COVID-19) vaccine, UNSPECIFIED 1 completed Not Available [facility] 05/04/2022 06:51:56 Influenza, high-dose, quadrivalent, PF 1 completed Not Available [facility] 05/04/2022 06:51:57 Influenza, split virus, quadrivalent, preservative 0 completed Not Available [facility] 05/04/2022 06:51:57 influenza, unspecified formulation 6 completed Not Available [facility] 05/04/2022 06:51:57 Pneumococcal conjugate PCV 13 1 completed Not Available [facility] 05/04/2022 06:51:57 Influenza, split virus, quadrivalent, PF 8 completed Not Available [facility] 05/04/2022 06:51:57 Tdap 8 completed Not Available [facility] 05/04/2022 06:51:57 Past Encounters Encounter ID Performer Location Encounter Start Date Encounter Closed Date Diagnosis/Indication Diagnosis SNOMED-CT Code Diagnosis ICD10 Code Diagnosis Note [id number] [facility] Jeremías [address] [place] [address] 1 07/14/2020 00:00:00 07/14/2020 18:00:[id number] [address] 1 01/12/2021 00:00:00 01/12/2021 18:40:[id number] [address] 1 07/13/2021 00:00:00 07/13/2021 09:54:59 [id number] [facility] [address] [address] 1 12/07/2021 00:00:00 12/07/2021 13:12:16 [id number] [facility] [address] [address] 01/06/2022 00:00:00 01/06/2022 13:06:39 [id number] [facility] [address] [address] 01/24/2022 00:00:00 03/10/2022 15:14:59 [id number] [facility] [address] [address] 03/10/2022 00:00:00 03/28/2022 20:03:49 [id number] Gaby Curry NP [address] [address] 06/09/2022 08:50:46 06/09/2022 09:32:08 Tobacco user 655130382 Z72.0 Cessation encouraged and recommende d. Chronic ob structive pulmonary disease 82991827 J44.[address] Chamberlain.tammy ol inhalerSpi skylar respimatsy mbicort(Br eztri patient- insurance coverage for Bretri?) $240/month and pt can't afford as of Feb 2023. Hyperlipidemia 03607530 E78.5 Rosuvastat in 40 mg po nightly. Hypertensive disorder 38 017262 I10 carvedilol 6.25 mg po bidfurosem pricila 20 mg po dailylisin opril 10 mg po daily Cerebrovas cular accident 206900817 I63.9 Aneurysm o f thoracic aorta 333260289 I71.20 Administra tion of pneumococcal vaccine 21320120 Z23 Pneumovax 06/09/22 Nocturia 745099053 R35.1 get after in August 2022. [id number] Gaby Curry NP [facility] [address] 12/09/2022 09:22:51 12/09/2022 10:13:57 Adult health examination 629197370 Z00.00 Encouraged well balanced meals, active lifestyle, and routine vision and dental appts. Screening for disorder 822453502 Z13.9 Administra tion of influenza vaccine 73910746 Z23 flu shot 12/09/22 Hyperlipidemia 65825369 E78.5 Rosuvastat in 40 mg po nightly.Ez etimibe 10 mg nightly.Ic osapent Ethyl [address] Marte Hypertensive disorder 38 772388 I10 carvedilol 6.25 mg po bidfurosem pricila 20 mg po dailylisin opril 10 mg po daily Chronic ob structive pulmonary disease 85984996 J44.[address] Chamberlain.albuter ol inhalerSpi skylar respimatsy mbicort' Tobacco user 286056149 Z 72.0 Cessation encouraged and recommende d.Nicotine patches prescribed . Cerebrovas cular accident 619022655 I63.9 Aneurysm o f thoracic aorta 579745697 I71.20 [id number] Brian Chamberlain MD [facility] [place] Pulmonolo gy [address] [address] 03/09/2023 10:30:46 03/10/2023 08:18:47 Severe chronic obstructive pulmonary disease 975388316 J44.9 Smoker 29891138 F17.218 F17.219 Z87.575 [id number] EJ Garcia S_G [address] [address] 05/22/2023 09:55:14 05/22/2023 10:33:05 Adult health examination 083459572 Z00.00 Flu Shot: 3COV ID Vaccine: 05/19/2020 , 06/16/2020 , due, will go to pharmacyTd ap: 07/2017Shi liorles Vaccines: due, will go to pharmacyPn eumonia Vaccines: PPV23 ( 3), PCV13 ( 1), PCV20 due, will go to pharmacyRS V Vaccines: due, will go to pharmacyHe patitis C Screening: negative (05/24/22) Colonoscop y: cologuard 2022 negativeLu ng Cancer Screening: last done 02/2023, recommends 12 month follow upPSA: 0.36 ( 3), ordered today Screening for malignant neoplasm of prostate 503081615 Z12.5 [id number] EJ Garcia [facility] [address] [address] 07/25/2023 08:44:31 07/25/2023 09:42:50 Prediabetes 107836251 R73.03 We discussed metformin vs Farxiga. The patient would best benefit from farxiga due to cardiovasc ular and kidney protection and overall risk mortality reduction. Both medication s offered and education provided. Cost of Farxiga explained, pt would like to continue with Farxiga and co-pay card provided.I f cost is too high, patient will call and we can try Metformin or possibly jardiance. Health Concerns Section Related Observation LastModified by Organization Detai ls LastModified Time None Recorded Concern Status LastModified by Organization Details LastModified Time None Recorded Advance Directives Directive Y: Payers Encounter Date Sequence Insurance Name Policy Number Policy Mejia Covered Member ID Mejia Member ID Guarantor Name 06/09/2022 1 [facility] (MEDICARE REPLACEMENT/A DVANTAGE - HMO) [id number] Ad Eisenberg [id number] Ad Eisenberg 12/09/2022 1 [facility] (MEDICARE REPLACEMENT/A DVANTAGE - HMO) [id number] Ad Eisenberg [id number] Ad Eisenberg 03/09/2023 1 [facility] (MEDICARE REPLACEMENT/A DVANTAGE - HMO) [id number] Ad Eisenberg [id number] Ad Eisenberg 05/22/2023 1 [facility] (MEDICARE REPLACEMENT/A DVANTAGE - HMO) [id number] Ad Eisenberg [id number] Ad Eisenberg 07/25/2023 1 [facility] (MEDICARE REPLACEMENT/A DVANTAGE - HMO) [id number] Ad Eisenberg [id number] Ad Eisenberg Notes Date Note Type Note Provider Name and Address Organization Details Recorded Time 3 text/html Here with for follow up Has been seeing cardiology regularly.Feeling well.Breathing ok most days. Has a cough, still smoking, and sits down when winded.Not much exercise during the day. Mostly sitting.Sleeping well on back. Had EGD- okCT scan in january - pt states all was good. Vision- utd. Gaby Curry NP [address] [facility], [place], [address], [place] 06/09/2022 09:30:33 3 text/html Here for MAWV Home bp 7 AM 111/56.Cardio monitor people called and average is 104/56.Not using nicotine patch as it made him irritated and still had cravings.COPD- seeing Dr. Chamberlain. January 2023. Stable.HTN- Seeing cardiology in February 2023. Gaby Curry NP [address] [facility], [place], [address], [place] 12/09/2022 10:05:52 4 text/html Primary care/Referring provider: Gaby Curry NP; ARYAN Quintanillaatient is here to go over his PFT and chest CT as part of his COPD management.Initial development of shortness of breath: 2018Duration of shortness of breath: 6 yearsCondition of shortness of breath: stableTiming of shortness of breath: morningFrequency: up to 2 times a dayLimits activities: yesAggravating factors: walking, showeringAlleviating factors: restModified Medical [employer] [place] (mMRC) Dyspnea Scale - Grade 2Grade 0 I only get breathless with strenuous exercise .Grade 1 I get short of breath when hurrying on the level or walking up a slight hill .Grade 2 I walk slower than people of the same age on the level because of breathlessness or have to stop for breath when walking at my own pace on the level .Grade 3 I stop for breath after walking about 100 yards or after a few minutes on the level .Grade 4 I am too breathless to leave the house or I am breathless when dressing .Treatment history:Symbicort 80/4.5 mcg 1 puff BID 09/2020 - 2Breztri 160/9/4.8 mcg 2 puffs BID 01/2022 only, could not afford.Other symptoms:Drooling: noDysarthria: noDysphagia: noWeak mastication: noFacial weakness: noNasal speech: noProtruding tongue: noProductive cough: noWheezing: noChest tightness: yesOrthopnea: noFrequent throat clearing or swallowing: noPalpitations: noHeartburn: noEdema: noEnvironmental exposures:Nicotine smoke: 1 ppd 1970-present (quit 1 year in between) = 50 yearsPaint: noDye: noDust mites: yesMold: noDamp basement: noWood burning stove: noAnimal dander: catCockroaches: noPollen: yesArsenic: noAsbestos: noBeryllium: noCadmium: noChromium: noCoal smoke: noDiesel fumes: yesNickel: noSilica: noSoot: noEPWORTH SLEEPINESS SCALE (ESS)CHANCE OF DOZING SCORE0 = would never doze1 = slight chance of dozing2 = moderate chance of dozing3 = high chance of dozingSITUATION AND CHANCE OF DOZINGSitting and reading - 0Watching television - 1Sitting inactive in a public place (e.g. a theater or meeting) - 0As a passenger in a car for an hour without a break - 0Lying down to rest in the afternoon when circumstances permit - 1Sitting and talking to someone - 0Sitting quietly after lunch without alcohol - 0In a car, while stopped for a few minutes in the traffic - 0TOTAL SCORE 2Subjectively, patient has a slight chance of dozing. Brian Chamberlain MD [address] [place] [address] [address], [place], [address], [facility] 03/09/2023 11:37:05 4 text/html Ad Eisenberg is a 67 year old male patient here to establish care. He previously saw Gaby Curry DNP who is no longer with this clinic. He is currently under the care of cardiology (Dr. Marte) and pulmonology (Dr. Brian Chamberlain). His cardiac history (managed by Dr. Marte) includes thoracic aorta aneurysm, cardiomyopathy, cerebrovascular accident, hyperlipidemia, and hypertension. Dr. Marte fills ezetimibe, furosemide, carvedilol, lisinopril, and rosuvastatin. He sees cardiology twice a year. His respiratory history includes COPD and current tobacco use. Dr. Chamberlain fills albuterol inhaler, Spirivia, and Symbicort. Flu Shot: OVID Vaccine: 05/19/2020, 06/16/2020, due, will go to pharmacyTdap: 07/2017Shingles Vaccines: due, will go to pharmacyPneumonia Vaccines: PPV23 (06/09/2022), PCV13 (07/14/2020), PCV20 due, will go to pharmacyRSV Vaccines: due, will go to pharmacyHepatitis C Screening: negative (05/24/22)Colonoscopy: cologuard 2022 negativeLung Cancer Screening: last done 02/2023, recommends 12 month follow upPSA: 0.36 (07/29/2022), ordered today EJ Garcia [address], [address], [place], [address], [place] 06/26/2023 16:03:12 4 text/html Ad Eisenberg is a 68 year old patient here today to follow up on blood work. He had labs on 05/14/2023 which showed a hemoglobin A1C of 6.4. He would like to pursue therapy for pre-diabetes to prevent escalation to diabetes due to his high risk cardiovascular history. In the past, he has had an aneurysm of the thoracic aorta, CVA, hyperlipidemia, and hypertension. We discussed metformin vs Farxiga. The patient would best benefit from farxiga due to cardiovascular and kidney protection and overall risk mortality reduction. Both medications offered and education provided. Cost of Farxiga explained, pt would like to continue with Farxiga and co-pay card provided. EJ Garcia [address], [address], [place], [address], [employer] 07/25/2023 09:33:19
[2024-04-16 11:05] VITALS: PULSE 107; O2SAT 88
--- NOTE | 2024-04-16 11:35 | HOMEO2EVAL ---
Evaluation was performed at [facility] Home Oxygen Evaluation RC: Home Oxygen (O2) Evaluation Start: 04/16/24 11:31 Freq: Status: Active Protocol: RPE Activity Type Activity Date Activity User E-sign Co-sign Detail Recorded Client Recorded Date Recorded By Document 04/16/24 10:58 KRM [email or web address] 04/16/24 11:35 KRM Document 04/16/24 10:59 KRM [email or web address] 04/16/24 11:35 KRM Document 04/16/24 11:00 KRM [email or web address] 04/16/24 11:35 KRM Document 04/16/24 11:03 KRM [email or web address] 04/16/24 11:35 KRM Document 04/16/24 11:05 KRM [email or web address] 04/16/24 11:35 KRM 04/16/24 04/16/24 04/16/24 10:58 10:59 11:00 Home O2 Evaluation [Oxygen] -Test Phase Resting Exercise Exercise -Oxygen Delivery Room Air Room Air Nasal Cannula -Oxygen Flow Rate (L/min) 2 [Pulse Oximetry] -Pulse Oximetry (90-100 %) 90 83 L 86 L [Pulse Rate] -Pulse Rate (60-100 beats/min) 93 99 83 [Evaluation] -Activity Tolerance [Exercise] -Ambulation Distance (feet) -Ambulation Distance (meters) [Comments] -Home Oxygen Evaluation Comments [Charges] -Evaluation Charges 04/16/24 04/16/24 11:03 11:05 Home O2 Evaluation [Oxygen] -Test Phase Exercise Exercise -Oxygen Delivery Nasal Cannula Nasal Cannula -Oxygen Flow Rate (L/min) 3 4 [Pulse Oximetry] -Pulse Oximetry (90-100 %) 85 L 88 L [Pulse Rate] -Pulse Rate (60-100 beats/min) 102 H 107 H [Evaluation] -Activity Tolerance Good [Exercise] -Ambulation Distance (feet) 500 -Ambulation Distance (meters) 152.39 [Comments] -Home Oxygen Evaluation Comments PT. REQUIRES 4LPM WITH ACTIVITY. PT. REQUEST PORTABLE CONCENTRATOR ( POC). [Charges] -Evaluation Charges O2 Evaluation by Pulmonary
--- NOTE | 2024-04-16 13:07 | WPDPFTINT ---
PFT Procedure Performed PFT Procedure Performed Spirometry with Pre/Post Bronchodilator Plethysmography (Lung Vol) Diffusing Cap (DLCO) Flow Vol Loop PFT Interpretation This is a pulmonary function test with pre and post-bronchodilator spirometry, plethysmography and diffusing capacity. The test was performed and results interpreted in accordance with the 2019 and 2005 ATS/ERS Task Force guidelines respectively using the Global Lung Function Initiative-2012 reference equations. Patient demonstrated good effort and cooperation. Reproducibility criteria were met. The quality of the pre bronchodilator spirometry maneuver was Grade A and post bronchodilator spirometry maneuver was Grade A. Findings: Spirometry: There is decreased maximal expiratory airflow at all lung volumes with concave expiratory flow tracing. The contour the inspiratory flow tracing is normal. The pre bronchodilator FVC is 2.50 L, 63% predicted. The pre bronchodilator FEV1 is 0.79 L, 26% predicted. The pre bronchodilator FEV1: FVC ratio is 31%. The post bronchodilator FVC is 2.82 L, representing a 13% increase. The post bronchodilator FEV1 is 0.77 L, representing a 2% decrease. The post bronchodilator FEV1: FVC ratio is 27%. Plethysmography: The total lung capacity is 8.28 L, 125% predicted. The functional residual capacity is 6.84 L, 195% predicted. The residual volume is 5.78 L, 246% predicted. The residual volume: Total lung capacity ratio 70%. Diffusing capacity: The diffusing capacity unadjusted for hemoglobin and carboxyhemoglobin is 8.5, 34% predicted. The diffusing capacity adjusted for alveolar volume is 2.15, 53% predicted. Impression: There is a very severe obstructive abnormality. There is significant improvement after inhaling a single dose of albuterol. The increase in residual volume to total lung volume ratio is consistent with hyperinflation from an obstructive abnormality. The diffusing capacity unadjusted for hemoglobin and carboxyhemoglobin is severely decreased and remains moderately decreased when adjusted for alveolar volume. There are no prior studies for comparison
== END 2024-04-16 10:02 | disposition home or self-care (01) ==
PROVIDERS: PCP Nurse Practitioner Family; Visit Provider Physician Assistant
DX: J44.9 Chronic obstructive pulmonary disease, unspecified (principal); Z12.2 Encounter for screening for malignant neoplasm of respiratory organs; Z87.891 Personal history of nicotine dependence; R94.2 Abnormal results of pulmonary function studies; J43.9 Emphysema, unspecified
CPT/HCPCS: 71271; 94060; 94618; 94726; 94729